=== PATIENT | female | born 1940 | race Caucasian/White ===

== ENCOUNTER 2017-03-03 14:24 | Inpatient (IN) | payer OTHER ==
[~2017-03-03] VITALS: Ht 144.8 cm; Wt 50.3 kg
[2017-03-03] MEDS ORDERED: ALBU2.5V3 NEB (14:48)
[2017-03-03] MEDS ORDERED: AMLO-145 PO (14:48)
[2017-03-03] MEDS ORDERED: ASPI-664 PO (14:49)
[2017-03-03] MEDS ORDERED: SYMB80120 INHALATION (14:49)
[2017-03-03] MEDS ORDERED: MINE3.5O31 BOTH EYES (14:49)
[2017-03-03] MEDS ORDERED: CARV12.598 PO (14:49)
[2017-03-03] MEDS ORDERED: CYCL1DRO BOTH EYES (14:50)
[2017-03-03] MEDS ORDERED: DICY10CA60 PO (14:50)
[2017-03-03] MEDS ORDERED: CLOP75TA27 PO (14:50)
[2017-03-03] MEDS ORDERED: ERGO500037 PO (14:51)
[2017-03-03] MEDS ORDERED: FURO20TA3 PO (14:51)
[2017-03-03] MEDS ORDERED: FLUT9.9S NASAL (14:51)
[2017-03-03] MEDS ORDERED: FER325 PO (14:51)
[2017-03-03] MEDS ORDERED: LANT3I SC (14:52)
[2017-03-03] MEDS ORDERED: GABA100C14 PO (14:52)
[2017-03-03] MEDS ORDERED: ISOS30TA18 PO (14:53)
[2017-03-03] MEDS ORDERED: LISI1TAB8 PO (14:53)
[2017-03-03] MEDS ORDERED: METO25TA7 PO (14:53)
[2017-03-03] MEDS ORDERED: NIFE60TA36 PO (14:54)
[2017-03-03] MEDS ORDERED: NITR0.4T6 SL (14:54)
[2017-03-03] MEDS ORDERED: SIMV20TA PO (14:55)
[2017-03-03] MEDS ORDERED: PANT40TA4 PO (14:55)
[2017-03-03] MEDS ORDERED: SIMV40TA2 PO (14:55)
[2017-03-03 15:27] LABS: ADD SCAN DIFF NO
[2017-03-03 15:30] LABS: BASOPHILS % 0.7 % (0.0-2.0); EOSINOPHILS # 0.2 10^3/ul (0.0-0.5); EOSINOPHILS % 3.4 % (0.0-7.0); HEMOGLOBIN 7.8 g/dl (12.0-16.0); LYMPHOCYTES # 1.2 10^3/ul (0.8-2.9); LYMPHOCYTES % 20.6 % (15.0-51.0); MEAN CORPUSCULAR HEMOGLOBIN 31.7 pg (29.0-33.0); MEAN CORPUSCULAR HGB CONC 32.5 g/dl (32.0-37.0); MEAN CORPUSCULAR VOLUME 97.6 fl (82.0-101.0); MEAN PLATELET VOLUME 10.1 fl (7.4-10.4); MONOCYTE # 0.4 10^3/ul (0.3-0.9); MONOCYTES % 6.3 % (0.0-11.0); NEUTROPHIL # 3.8 10^3/ul (1.6-7.5); NEUTROPHILS % 67.6 % (39.0-77.0); PLATELET COUNT 165 10^3/UL (140-415); RED BLOOD COUNT 2.46 10^6/ul (4.20-5.40); RED CELL DISTRIBUTION WIDTH 15.1 % (11.5-14.5); WHITE BLOOD COUNT 5.6 10^3/ul (4.8-10.8)
[2017-03-03 15:48] LABS: INR 1.08; PT RATIO 1.1
[2017-03-03 15:49] LABS: PARTIAL THROMBOPLASTIN TIME 32.4 Sec (25.0-35.0)
[2017-03-03 15:54] LABS: ALBUMIN 3.1 g/dl (3.3-4.9)
[2017-03-03 15:55] LABS: POTASSIUM 4.2 mmol/L (3.5-5.1)
[2017-03-03 15:57] LABS: ALBUMIN/GLOBULIN RATIO 0.75; BILIRUBIN,INDIRECT 0.3 mg/dl (0-1.1); BILIRUBIN,TOTAL 0.3 mg/dl (0.2-1.3); CREATININE 0.95 mg/dl (0.44-1.00); TOTAL PROTEIN 7.2 g/dl (6.1-8.1)
[2017-03-03 15:58] LABS: CALCIUM 9.3 mg/dl (8.4-10.2)
[2017-03-03 18:22] VITALS: TEMP 98.6
--- NOTE | 2017-03-03 20:46 | ERA ---
ER Documentation Chief Complaint Date/Time DATE: 03/03/17 TIME: 20:42 Chief Complaint BIBA FOR LOW H&H FROM SNF HPI This is a 76-year-old female who is sent for blood transfusion. Patient is at a longterm and was walking with a walker she says she felt very weak in her legs while working well for her so they put her in bed and was sent over for a hemoglobin of 6.8. The patient states she was at an outside hospital 2 weeks ago and received 1 unit of blood for anemia. The patient states that she does not know why she has anemia. She denies any headache chest pain shortness of breath abdominal pain fever or melena. Currently she says she feels back to normal ROS All systems reviewed and are negative except as per history of present illness. Medications Home Meds Reported Medications Simvastatin* (Zocor*) 20 Mg Tablet, 20 MG PO QHS, #30 TAB 03/03/17 Pantoprazole* (Pantoprazole*) 40 Mg Tablet.dr, 40 MG PO BID, TAB 03/03/17 Nitroglycerin* (Nitroglycerin* SL) 0.4 Mg Tab.subl, 0.4 MG SL Q5MIN Y for CHEST PAIN, BOTTLE 03/03/17 Nifedipine* (Adalat CC*) 60 Mg Tablet.sa, 60 MG PO QPM, #30 TAB.SA 03/03/17 Metoprolol Succinate* (Toprol XL*) 25 Mg Tab.sr.24h, 25 MG PO DAILY, #30 TAB 03/03/17 Lisinopril/Hydrochlorothiazide (Lisinopril-Hctz 20-25 mg Tab) 1 Each Tablet, 1 EACH PO DAILY, TAB 03/03/17 Isosorbide Dinitrate* (Isosorbide Dinitrate*) 30 Mg Tablet, 30 MG PO DAILY, TAB 03/03/17 Insulin Glargine* (Lantus*) 100 Unit/Ml Soln, 15 UNIT SC QHS, #1 VIAL 03/03/17 Gabapentin* (Gabapentin*) 100 Mg Capsule, 100 MG PO QPM, #90 CAP 03/03/17 Furosemide* (Furosemide*) 20 Mg Tablet, 20 MG PO BID, #30 TAB 03/03/17 Fluticasone Propionate (Flonase Allergy Relief) 9.9 Ml [place].susp, 1 SPRAY NASAL DAILY, #1 BOTTLE TO EACH NOSTRIL 5/3/17 Ferrous Sulfate* (Ferrous Sulfate*) 325 Mg Tabec, 325 MG PO BID, TAB 03/03/17 Ergocalciferol (Vitamin D2) (VITAMIN D2) 50,000 Unit Capsule, 70177 UNIT PO WEEKLY, CAP 03/03/17 Dicyclomine Hcl* (Bentyl*) 10 Mg Capsule, 10 MG PO QID, CAP 03/03/17 Cyclosporine (RESTASIS) 1 Each [place], 1 DROP BOTH EYES Q12, #1 BOX 03/03/17 Clopidogrel Bisulfate (Clopidogrel) 75 Mg Tablet, 75 MG PO DAILY, #30 TAB 03/03/17 Carvedilol* (Coreg*) 12.5 Mg Tablet, 12.5 MG PO BID, #60 TAB 03/03/17 Budesonide-Formoterol Fumarate* (Symbicort*) 80-4.5 Inha, 1 PUFFS INHALATION BID , #1 EACH 03/03/17 Aspirin* (Aspirin* EC) 81 Mg Tablet.dr, 81 MG PO DAILY, TAB 03/03/17 Artificial Tears* (Akwa Oint*) 3.5 Gm Oint, 1 APPLIC BOTH EYES BID, #1 TUB 03/03/17 Amlodipine Besylate* (Amlodipine Besylate*) 5 Mg Tablet, 5 MG PO DAILY, #30 TAB 03/03/17 Albuterol Sulfate* (Albuterol Sulfate* Neb) 0.083%-3 Ml Neb, 2.5 MG NEB Q6 Y for WHEEZING AND SOB, #30 VIAL 03/03/17 Discontinued Reported Medications Simvastatin* (Zocor*) 40 Mg Tablet, 40 MG PO QHS, #30 TAB 03/03/17 Allergies Allergies: Coded Allergies: Penicillins (Verified Allergy, Severe, 03/03/17) Sulfa (Sulfonamide Antibiotics) (Verified Allergy, Severe, 03/03/17) codeine (Verified Allergy, Severe, 03/03/17) diphenhydramine (Verified Allergy, Severe, 03/03/17) hydromorphone (Verified Allergy, Severe, 03/03/17) ibuprofen (Verified Allergy, Severe, 03/03/17) iodine (Verified Allergy, Severe, 03/03/17) ketorolac (Verified Allergy, Severe, 03/03/17) quinine (Verified Allergy, Severe, 03/03/17) PMhx/Soc History of Surgery: Yes (CHOLECYSTECTOMY,OPEN HEART SX 1999) Anesthesia Reaction: No Hx Neurological Disorder: No Hx Respiratory Disorders: No Hx Cardiac Disorders: Yes (HTN,HEART ATTACK,CAD) Hx Psychiatric Problems: No Hx Miscellaneous Medical Probl: Yes (DM) Hx Alcohol Use: No Hx Substance Use: No Hx Tobacco Use: No Smoking Status: Never smoker FmHx Family History: No coronary disease Physical Exam Vitals Vital Signs Date Time Temp Pulse Resp B/P Pulse Ox O2 Delivery O2 Flow Rate FiO2 03/03/17 20:32 74 17 162/66 100 Nasal Cannula 2.0 03/03/17 18:22 98.6 78 15 169/74 100 Nasal Cannula 2.0 03/03/17 17:32 98.2 75 151/67 98 03/03/17 15:21 Nasal Cannula 2 03/03/17 14:38 98.0 75 18 132/56 98 Physical Exam Const: Well-developed, well-nourished Head: Atraumatic, normocephalic Eyes: Normal Conjunctiva, PERRLA, EOMI, normal sclera, no nystagmus ENT: Normal External Ears, Nose and Mouth, moist mucus membranes. Neck: Full range of motion. No meningismus, no lymphadenopathy. Resp: Clear to auscultation bilaterally, no wheezing, rhonchi, rales Cardio: Regular rate and rhythm, no murmurs, S1 S2 present Abd: Soft, non tender x 4, non distended. Normal bowel sounds, no guarding or rebound, no pulsitile abdominal masses or bruits Skin: No petechiae or rashes, no ecchymosis , no maculopapular rash Back: No midline or flank tenderness Ext: No cyanosis, or edema, FROM x 4, normal inspection, neurovascularly intact x 4 Neur: Awake and alert, STR 5/5 x 4, sensation intact x 4, no focal findings, cerebellum intact Psych: Normal Mood and Affect Result Diagram: 03/03/17 1520 03/03/17 1520 Results 24 hrs Laboratory Tests Test 03/03/17 15:20 White Blood Count 5.610^3/ul Red Blood Count 2.4610^6/ul Hemoglobin 7.8g/dl Hematocrit 24.0% Mean Corpuscular Volume 97.6fl Mean Corpuscular Hemoglobin 31.7pg Mean Corpuscular Hemoglobin Concent 32.5g/dl Red Cell Distribution Width 15.1% Platelet Count 24613^3/UL Mean Platelet Volume 10.1fl Neutrophils % 67.6% Lymphocytes % 20.6% Monocytes % 6.3% Eosinophils % 3.4% Basophils % 0.7% Nucleated Red Blood Cells % 0.0/100WBC Neutrophils # 3.810^3/ul Lymphocytes # 1.210^3/ul Monocytes # 0.410^3/ul Eosinophils # 0.210^3/ul Basophils # 0.010^3/ul Nucleated Red Blood Cells # 0.010^3/ul Prothrombin Time 14.0Sec Prothrombin Time Ratio 1.1 INR International Normalized Ratio 1.08 Activated Partial Thromboplast Time 32.4Sec Sodium Level 143mmol/L Potassium Level 4.2mmol/L Chloride Level 109mmol/L Carbon Dioxide Level 24mmol/L Anion Gap 14 Blood Urea Nitrogen 22mg/dl Creatinine 0.95mg/dl Glucose Level 211mg/dl Calcium Level 9.3mg/dl Total Bilirubin 0.3mg/dl Direct Bilirubin 0.00mg/dl Indirect Bilirubin 0.3mg/dl Aspartate Amino Transf (AST/SGOT) 22IU/L Alanine Aminotransferase (ALT/SGPT) 23IU/L Alkaline Phosphatase 212IU/L Total Protein 7.2g/dl Albumin 3.1g/dl Globulin 4.10g/dl Albumin/Globulin Ratio 0.75 Procedures/MDM Patient had a type and cross of 2 units of packed red blood cells, however, she has very specific antibodies. The patient has been here for 6 hours and no blood is ready and apparently they had to redraw the blood is seen to to [facility] again for type and crossmatch. Blood bank states that they are not sure how long this will take to get the results back and get her blood seen over. He said it could be quite a while Patient is anemic with a hemoglobin of 7.8 which is not critical but she could benefit from some blood. Attempted to try to send the patient out and have her return tomorrow for the blood transfusion, however, the patient will have to reregister and the process will start all over again because she will have a new medical record number, therefore they will not hold her blood here until tomorrow I will have to admit the patient Patient states that a longterm the cannot administer blood products I paged Dr. Bard mejía Laboratory values relatively unremarkable and she feels fine. Feels she just needs some blood and can be discharged home Departure Diagnosis: Primary Impression: Anemia Qualified Code: D64.9 - Anemia, unspecified type Condition: Stable GLADYS SANDOVAL DO March 03, 2017 20:46
[2017-03-03] MEDS ORDERED: ONDANSETRON 4 MG INJ IV PRN ×2 (21:00)
[2017-03-03] MEDS ORDERED: ACETAMINOPHEN 325 MG TAB PO PRN ×2 (21:00)
[2017-03-03 22:00] VITALS: Ht 144.8 cm; Wt 50.3 kg
[2017-03-03] MEDS ORDERED: ALBUTEROL 0.083% (NEB) 2.5 MG/3 ML AMP NEB PRN (23:30)
[2017-03-03] MEDS ORDERED: NITROGLYCERIN (SL) 0.4 MG TAB SL PRN (23:30)
[2017-03-03 23:48] VITALS: BP 82/76; PULSE 78; RESP 18
[2017-03-04] VITALS (11 sets, daily range): BP systolic 111–172; BP diastolic 56–77; PULSE 68–73; RESP 16–19
[2017-03-04] MEDS ORDERED: GLUCOSE GEL 15 GRAM TUBE PO PRN ×2 (00:10)
[2017-03-04] MEDS ORDERED: GLUCAGON 1 MG INJ IM PRN (00:10)
[2017-03-04] MEDS ORDERED: GLUCOSE GEL 15 GRAM TUBE BUCCAL PRN (00:10)
[2017-03-04] MEDS ORDERED: DEXTROSE 50% 50 ML SYRINGE IV PRN ×2 (00:10)
[2017-03-04] MEDS: ACCU-CHEK XX SCH (00:13)
[2017-03-04 04:53] LABS: ADD SCAN DIFF NO
[2017-03-04 05:00] LABS: ABNORMAL IP MESSAGE 1; HEMATOCRIT 22.1 % (37.0-47.0); MEAN CORPUSCULAR HEMOGLOBIN 30.4 pg (29.0-33.0); MEAN CORPUSCULAR HGB CONC 31.2 g/dl (32.0-37.0); MEAN CORPUSCULAR VOLUME 97.4 fl (82.0-101.0); PLATELET COUNT 127 10^3/UL (140-415); RED BLOOD COUNT 2.27 10^6/ul (4.20-5.40); RED CELL DISTRIBUTION WIDTH 15.3 % (11.5-14.5); WHITE BLOOD COUNT 5.3 10^3/ul (4.8-10.8)
[2017-03-04 05:33] LABS: POTASSIUM 3.7 mmol/L (3.5-5.1)
[2017-03-04 05:36] LABS: CREATININE 0.88 mg/dl (0.44-1.00)
[2017-03-04] MEDS: PANTOPRAZOLE (EC) 40 MG TAB PO SCH ×2 (05:49→17:55)
[2017-03-04] MEDS: FUROSEMIDE 20 MG TAB PO SCH ×2 (05:50→17:55)
[2017-03-04] MEDS ORDERED: [UNRECOGNIZED DRUG - OTHER] XX SCH (07:30)
[2017-03-04] MEDS ORDERED: ERGOCALCIFEROL 50000 UNIT XX SCH (07:30)
[2017-03-04] MEDS: CLOPIDOGREL 75 MG TAB PO SCH (09:00)
[2017-03-04] MEDS ORDERED: DICYCLOMINE 10 MG CAP PO SCH (09:00)
[2017-03-04] MEDS ORDERED: METOPROLOL (XL) 25 MG TAB PO SCH (09:00)
[2017-03-04] MEDS ORDERED: AMLODIPINE 5 MG TAB PO SCH (09:00)
[2017-03-04] MEDS ORDERED: ISOSORBIDE DINITRATE 10 MG TAB PO SCH (09:00)
[2017-03-04] MEDS: LISINOPRIL 20 MG TAB PO SCH (09:08)
[2017-03-04] MEDS: HYDROCHLOROTHIAZIDE 25 MG TAB PO SCH (09:08)
[2017-03-04] MEDS: FLUTICASONE 0.05% 16 GM NAS SPRAY NASAL SCH (09:09)
[2017-03-04] MEDS: ASPIRIN (EC) 81 MG TAB PO SCH (09:09)
[2017-03-04] MEDS: FERROUS SULFATE (EC) 325 MG TAB PO SCH ×2 (09:09→21:21)
[2017-03-04] MEDS: SALMETEROL/FLUTICASONE 100/50 INHA INH SCH ×2 (09:09→21:20)
[2017-03-04] MEDS: OCULAR LUBRICANT 3.5 GM OPH OINT BOTH EYES SCH ×2 (09:10→21:19)
[2017-03-04] MEDS: CYCLOSPORINE 0.05% OPH DROPERETTE BOTH EYES SCH ×2 (09:10→21:20)
[2017-03-04] MEDS: INSULIN ASPART [NOVOLOG] 3 ML PEN SC SCH ×5 (09:16→21:00)
[2017-03-04 10:18] LABS: EOSINOPHILS # 0.1 10^3/ul (0.0-0.5); LYMPHOCYTES # 1.1 10^3/ul (0.8-2.9); MONOCYTE # 0.1 10^3/ul (0.3-0.9)
[2017-03-04] MEDS ORDERED: SOD CHLORIDE 0.9% 250 ML IV* ONE (12:08)
--- NOTE | 2017-03-04 12:40 | HP ---
DATE OF ADMISSION: 03/03/2017 HISTORY OF PRESENT ILLNESS: The patient is a 76-year-old female well known to me from recent admiss ion at the [facility] facility. The patient had history of coronary artery disease status post CABG, hypertension, diabetes, dyslipidemia, who was recently admitted at [facility] for generalized weakness and was noted to have acute kidney injury. Patient's BUN was 129, creatini ne was 2.5. The patient also was noted to have a hemoglobin of 7.9. The patient did receive blood transfusion; however, I am not sure whether she has had any further workup done. The patient did doty ve a UTI during that admission also. The patient was subsequently referred to [facility]. The patient had a CBC done yesterday which revealed hemoglobin 6.8. The patie nt also was feeling generalized weakness and slightly dizzy. The patient was sent to [facility] for further evaluation and management due to symptomatic anemia. The patient denied any he matemesis or melena. No history of abdominal pain. No history of anginal chest pain. No history o f melenic stool. Patient's BUN in fact was only 22; however, repeat hemoglobin was 7.8. Hemoglobin was repeated again today, this morning it came back as 6.9. The patient also had a mild thrombocyt openia with platelet count of 127. The patient denied any previous history of any blood dyscrasias. No reported syncope, no reported orthopnea. The patient does not have any leg edema. No reported resting leg pain, no reported numbness, tingling in any extremity. The rest of the systems are unr emarkable. PAST SURGICAL HISTORY: Patient is status post bilateral cataract repair, cholecystectomy, right kate ast lumpectomy for breast cancer, surgical procedures for vaginal cancer, details not available. SOCIAL HISTORY: The patient used to smoke. The patient quit smoking in 1999. No history of alcoho l abuse. FAMILY HISTORY: Noncontributory. ALLERGIES: The patient is allergic to: 1. PENICILLIN. 2. SULFA. 3. CODEINE. 4. DIPHENHYDRAMINE. 5. HYDROMORPHONE. 6. 7. 8. KETOROLAC. 9. QUININE. PHYSICAL EXAMINATION: GENERAL: The patient is conscious, awake, alert, fairly oriented. VITAL SIGNS: Temperature 98, pulse 71, respirations 19, blood pressure 160/70, O2 saturation 97% on 2 liters cannula. HEENT: Atraumatic, normocephalic. Conjunctivae are pale. Lids are normal. Oropharynx revealed pa le mucosa. NECK: Supple. No mass, no thyromegaly, no mass. CHEST: Fairly clear. No use of accessory muscles. CARDIOVASCULAR: S1, S2 normal. Questionable ejection systolic murmur heard in aortic area with que stionable radiation to the right carotid. ABDOMEN: Soft, nondistended, nontender. No palpable mass. EXTREMITIES: No leg edema. Pedal pulses could not be felt. SKIN: Without acute rash. NEUROLOGIC: The patient is awake, alert, fairly oriented with no gross focal deficit. IMPRESSION: 1. Symptomatic anemia with mild thrombocytopenia, etiology unknown. Will obtain hem/onc consult fr om Dr. Curtis and GI consult from Dr. Simon. Will obtain stool for C. diff. 2. Coronary artery disease, status post coronary artery bypass graft. Continue aspirin and Plavix. 3. Hypertension. Continue Norvasc. 4. Hypertension. The patient's blood pressure is uncontrolled. We will increase Norvasc to 10 mg a day. Continue Coreg. 5. Dyslipidemia. Continue statin. 6. Diabetes. Continue Lantus and I will also add premeal insulin in addition to sliding scale. 7. We will also obtain echocardiogram, carotid Doppler and arterial Doppler of lower extremities. 8. Further recommendations will depend upon patient's hospital course. Dictated By: ANUSHA MIRELES/DO Conf#: [id number] DID#: [id number]
--- NOTE | 2017-03-04 14:21 | CONS ---
DATE OF ADMISSION: 03/04/2017 DATE OF CONSULTATION: 03/04/2017 TYPE OF CONSULTATION: Cardiology REASON FOR CONSULTATION: Hypertension, uncontrolled as well as systolic murmur and history of coron karrie artery bypass graft, assess for acute coronary syndrome. REQUESTING PHYSICIAN: González Claros MD HISTORY OF PRESENT ILLNESS: Ms. Avilez is a very pleasant 76-year-old female with a history of coron akrrie artery disease, status post coronary bypass graft surgery in 1999, hypertension, diabetes mellit us, dyslipidemia, renal failure and a recent admission at [facility] where she was ad mitted for generalized weakness, recent UTI, who presented with anemia from her chronic care facilit y with a hemoglobin of 6.8. Upon arrival, temperature was 98, blood pressure 132/56, pulse 75, resp iratory rate 18, saturating 98%. The patient's labs revealed a white count of 5.6, hemoglobin 7.8, platelet count 165, sodium 143, potassium 4.2, creatinine 0.95, BUN 22, AST 22, ALT 23, INR of 1.0. The patient does not have any imaging studies or EKGs for my review at this time. The patient tavares es current chest pain, states she has had some chest pain episodes. PAST MEDICAL HISTORY: As above in HPI. MEDICATIONS CURRENTLY IN HOSPITAL: 1. Norvasc 10 mg daily. 2. Gabapentin 100 mg daily. 3. Lantus 15 mg at bedtime. 4. Procardia-XL 60 mg daily. 5. Lipitor 20 mg at bedtime. 6. Insulin sliding scale. 7. Aspirin 81 mg daily. 8. Carvedilol 12.5 mg p.o. b.i.d. 9. Plavix 75 mg daily. 10. Cyclosporine eyedrops. 11. Ferrous sulfate 350 mg b.i.d. 12. Isordil 30 mg daily. 13. Zestril 20 mg daily. 14. Hydrochlorothiazide 25 mg daily. 15. Insulin sliding scale. 16. Lasix 20 mg p.o. b.i.d. 17. Protonix 40 mg p.o. b.i.d. 18. Albuterol p.r.n. 19. Nitroglycerin. 20. Zofran p.r.n. 21. Tylenol. ALLERGIES: 1. PENICILLIN. 2. SULFA. 3. CODEINE. 4. DIPHENHYDRAMINE. 5. DILAUDID. 6. IBUPROFEN. 7. IODINE. 8. TORADOL. SOCIAL HISTORY: Remote tobacco, quit times greater than 10 to 15 years. No ETOH or illicit drug us e. FAMILY HISTORY: No history of sudden cardiac or early CAD. REVIEW OF SYSTEMS: As above in HPI. CONSTITUTIONAL: No fevers, chills. PULMONARY: Shortness of breath. CARDIOVASCULAR: No current chest pain. History of coronary artery bypass graft. GASTROINTESTINAL: No vomiting. GENITOURINARY: No hematuria. MUSCULOSKELETAL: Degenerative joint disease. PSYCHIATRIC: The patient denies depression. NEUROLOGIC: No documented history of CVA. PHYSICAL EXAMINATION VITAL SIGNS: Temperature 98.6, blood pressure 160/70, pulse 71, respiratory rate 19, saturating 97% . GENERAL: The patient is alert, awake, in no acute distress. NECK: JVP approximately 8 cm water. CHEST: Fair. HEART: Regular rate and rhythm. Normal S1, S2, I/ systolic murmur, nondisplaced PMI. ABDOMEN: Positive bowel sounds, soft. EXTREMITIES: Trace edema at the ankle. Difficult to palpate distal pulses bilateral posterior tib ial. LABORATORY DATA: As above in HPI with most recently from today, white count 5.3, hemoglobin now víctor n to 6.9 with MCV of 97, platelet count of 127. Sodium 142, potassium 3.7, creatinine 0.8, BUN 19, INR of 1.0. IMAGING STUDIES: No imaging studies for my review at this time. ECG: No electrocardiograms for my review at this time. IMPRESSION: 1. Hypertension, uncontrolled. 2. Systolic murmur, assess etiology. 3. Coronary artery disease, status post coronary artery bypass graft surgery, assess for acute sharad nary syndrome. 4. Dyslipidemia. 5. Diabetes mellitus. 6. Possible congestive heart failure by medications. 7. Anemia, severe. RECOMMENDATIONS: 1. At this time, would check serial EKGs to assess for any significant abnormalities. 2. EKG now as baseline, EKG in the morning, EKG for any complaints of chest pain. 3. Would check troponins q.6h x2 to assure the patient's intermittent episodes of chest pain is no t indicative of any acute coronary syndromes, given history of coronary artery disease, status post coronary artery bypass graft surgery, multiple years prior. 4. Continue the patient's current Procardia, Carvedilol, hydrochlorothiazide and lisinopril with up titration as necessary to improve overall systolic blood pressure control. 5. Will change the patient's Isordil to Imdur and continue daily dosing. 6. Will discontinue the patient's second calcium channel timur, Norvasc, in favor continuing Proc ardia with further up titration as necessary. 7. Check a 2D echocardiogram to further assess patient's ejection fraction, wall motion and any kaley or valve abnormalities. 8. Would transfuse the patient packed RBCs and evaluate etiology 9. Continue the patient's aspirin and Plavix for now, but may have to be held in the setting of wor sening anemia. 10. Check a fasting lipid panel and adjust the patient's statin therapy as necessary. Thank you for allowing me to take part in the care of this patient. I will continue to follow very closely with you. Further recommendations to be made as the patient progresses through her [facility] clinical course. Dictated By: ELEN GREENE/DO Conf#: [id number] DID#: [id number] CC: GONZÁLEZ CLAROS MD;*EndCC*
--- NOTE | 2017-03-04 16:46 | CONS ---
Date/Time of Note Date/Time of Note DATE: 03/04/17 TIME: 16:38 Assessment/Plan Assessment/Plan Chief Complaint/Hosp Course The patient is a 76-year-old female with severe normocytic anemia with Hgb 6.9 and slightly elevated RDW 15.3, and mild thrombocytopenia without evidence of acute bleed - patient already receiving transfusion of 2 units pRBCs - Will request peripheral smear with path review, particularly given notation of nucleated RBC and history of breast cancer and vaginal cancer albeit remote - Will obtain iron panel, ferritin, LDH, retic, haptoglobin, B12/folate, methylmalonic acid and homocysteine - Pending GI evaluation - Will also send DIC panel, HIV, hep panel for mild thrombocytopenia Problems: Consultation Date/Type/Reason Admit Date/Time March 04, 2017 at 13:55 Date of Consultation: March 04, 2017 Type of Consultation: Hematology Hx of Present Illness The patient is a 76-year-old female well known to Dr. Basurto from recent admission at the [facility]. The patient had history of coronary artery disease status post CABG, hypertension, diabetes, dyslipidemia, who was recently admitted at [facility] for generalized weakness and was noted to have acute kidney injury. Patient's BUN was 129, creatinine was 2.5. The patient also was noted to have a hemoglobin of 7.9. The patient did receive blood transfusion; however, I am not sure whether she has had any further workup done. The patient did have a UTI during that admission also. The patient was subsequently referred to [facility]. The patient had a CBC done yesterday which revealed hemoglobin 6.8. The patient also was feeling generalized weakness and slightly dizzy. The patient was sent to [facility] ER for further evaluation and management due to symptomatic anemia. The patient denied any hematemesis or melena. No history of abdominal pain. No history of anginal chest pain. No history of melenic stool or BRBPR, no other source of bleeding. Patient's BUN in fact was only 22; however, repeat hemoglobin was 7.8. Hemoglobin was repeated again today, this morning it came back as 6.9. The patient also had a mild thrombocytopenia with platelet count of 127. The patient denied any previous history of any blood dyscrasias. She does have a remote history of breast cancer in the 1970s on the right status post mastectomy without need for chemo or radiation or hormone therapy per patient. She also had a history of vaginal cancer 20-30 years ago s/p surgery alone, EDUARDO since that time per patient. Past Medical History Per HPI. She does have a remote history of breast cancer in the 1970s on the right status post mastectomy without need for chemo or radiation or hormone therapy per patient. She also had a history of vaginal cancer 20-30 years ago s /p surgery alone, EDUARDO since that time per patient. Past Surgical History Patient is status post bilateral cataract repair, cholecystectomy, right breast lumpectomy for breast cancer, surgical procedures for vaginal cancer, details not available. Family History Significant Family History: no pertinent family hx Social History The patient used to smoke 1/2 ppd from age 16. The patient quit smoking in 1999. No history of alcohol abuse. 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 Results Result Diagram: 03/04/17 0420 03/04/17 0432 Results 24 hrs Laboratory Tests Test 03/03/17 22:50 03/04/17 04:20 03/04/17 04:32 03/04/17 09:01 Bedside Glucose 160 159 White Blood Count 5.3 Red Blood Count 2.27 L Hemoglobin 6.9 *L Hematocrit 22.1 L Mean Corpuscular Volume 97.4 Mean Corpuscular Hemoglobin 30.4 Mean Corpuscular Hemoglobin Concent 31.2 L Red Cell Distribution Width 15.3 H Platelet Count 127 #L Mean Platelet Volume 10.0 Neutrophils % 75.0 Band Neutrophils % 3.0 Lymphocytes % 20.0 Monocytes % 1.0 Eosinophils % 1.0 Nucleated Red Blood Cells % 3.0 H Neutrophils # 4.0 Lymphocytes # 1.1 Monocytes # 0.1 L Eosinophils # 0.1 Sodium Level 143 Potassium Level 3.7 Chloride Level 110 Carbon Dioxide Level 26 Anion Gap 11 Blood Urea Nitrogen 18 Creatinine 0.88 Glucose Level 175 Calcium Level 9.0 Test 03/04/17 12:10 Bedside Glucose 227 H Medications Medications Current Medications Eye Lubricant (Akwa Oint) 1 applic BID BOTH EYES Last administered on 03/04/17 09:10; Admin Dose 1 APPLIC; Start 03/04/17 at 09:00 Aspirin (Halfprin) 81 mg DAILY PO Last administered on 03/04/17 09:09; Admin Dose 81 MG; Start 03/04/17 at 09:00 Carvedilol (Coreg) 12.5 mg BID PO Last administered on 03/04/17 09:09; Admin Dose 12.5 MG; Start 03/04/17 at 09:00 Clopidogrel Bisulfate (plaVIX) 75 mg DAILY PO ; Start 03/04/17 at 09:00 Cyclosporine (Restasis) 1 drop Q12 BOTH EYES Last administered on 03/04/17 09: 10; Admin Dose 1 DROP; Start 03/04/17 at 09:00 Ergocalciferol (Drisdol) 50,000 unit Q7D PO ; Start 03/10/17 at 09:00 Ferrous Sulfate (Ferrous Sulfate (Ec)) 325 mg BID PO Last administered on 09:09; Admin Dose 325 MG; Start 03/04/17 at 09:00 Fluticasone Propionate (Flonase 0.05% Nasal) 1 spray DAILY NASAL Last administered on 03/04/17 09:09; Admin Dose 1 SPRAY; Start 03/04/17 at 09:00 Gabapentin (Neurontin) 100 mg QPM PO ; Start 03/04/17 at 21:00 Insulin Glargine (Lantus) 15 unit QHS SC ; Start 03/04/17 at 21:00 Nifedipine (Procardia Xl) 60 mg QPM PO ; Start 03/04/17 at 21:00 Nitroglycerin (Nitroglycerin (Sl Tab) 0.4 Mg) 1 tab Q5M PRN SL CHEST PAIN; Start 03/03/17 at 23:30 Pantoprazole (Protonix Tab) 40 mg BID@06,18 PO Last administered on 03/04/17 05 :49; Admin Dose 40 MG; Start 03/04/17 at 06:00 Salmeterol Xinafoate/ Fluticasone (Advair 100/50 Diskus) 1 inh BID INH Last administered on 03/04/17 09:09; Admin Dose 1 INH; Start 03/04/17 at 09:00 Lisinopril (Zestril) 20 mg DAILY PO Last administered on 03/04/17 09:08; Admin Dose 20 MG; Start 03/04/17 at 09:00 Atorvastatin Calcium (Lipitor) 10 mg DAILY@21 PO ; Start 03/04/17 at 21:00 Diagnostic Test (Pha) (Accu-Chek) 1 ea 02 XX ; Start 03/04/17 at 02:00 Miscellaneous Information 1 ea NOTE XX ; Start 03/04/17 at 00:10 Glucose (Glutose) 15 gm Q15M PRN PO DECREASED GLUCOSE; Start 03/04/17 at 00:10 Glucose (Glutose) 22.5 gm Q15M PRN PO DECREASED GLUCOSE; Start 03/04/17 at 00:10 Dextrose (D50w Syringe) 25 ml Q15M PRN IV DECREASED GLUCOSE; Start 03/04/17 at 00:10 Dextrose (D50w Syringe) 50 ml Q15M PRN IV DECREASED GLUCOSE; Start 03/04/17 at 00:10 Glucagon (Glucagen) 1 mg Q15M PRN IM DECREASED GLUCOSE; Start 03/04/17 at 00:10 Glucose (Glutose) 15 gm Q15M PRN BUCCAL DECREASED GLUCOSE; Start 03/04/17 at 00: 10 Hydrochlorothiazide (Hydrochlorothiazide) 25 mg DAILY PO Last administered on 09:08; Admin Dose 25 MG; Start 03/04/17 at 09:00 Isosorbide Mononitrate (Imdur) 30 mg DAILY PO ; Start 03/05/17 at 09:00 Nifedipine (Procardia Xl) 30 mg AM PO ; Start 03/05/17 at 09:00 MIKE SEGURA MD March 04, 2017 16:46
--- NOTE | 2017-03-04 17:01 | RADRPT ---
PROCEDURE: US Carotids. CLINICAL INDICATION: bruit , bruit on right side TECHNIQUE: Multiple sonographic of the carotid bifurcation region and vertebral arteries were obta ined utilizing farr scale, duplex and color-flow imaging. The images were reviewed on a PACS worksta tion. COMPARISON: No prior studies are available for comparison. FINDINGS: Evaluation of the right carotid bifurcation region reveals mild calcific atherosclerotic disease. . Evaluation of the left carotid bifurcation region reveals mild to moderate calcific atherosclerotic disease. There is a 59% stenosis in the left carotid bulb. There is antegrade flow within the vertebral arteries bilaterally. RIGHT CAROTID MEASUREMENTS: Common Carotid Vkoesj71.5 (cm/sec) Internal Carotid Artery - xbgcedae927.1 (cm/sec) Internal Carotid Artery - wuo870.9 (cm/sec) Internal Carotid Artery - tootcb714.4 (cm/sec) Internal Carotid/Common Carotid2.16 LEFT CAROTID MEASUREMENTS: Common Carotid Gybjaf53.0 (cm/sec) Internal Carotid Artery - hkyadelu297.4 (cm/sec) Internal Carotid Artery - oet131.2 (cm/sec) Internal Carotid Artery - bonbuk485.3 (cm/sec) Internal Carotid/Common Carotid1.97 RPTAT: AA IMPRESSION: Increased internal carotid to common carotid ratio bilaterally, suspicious for bilateral 50-69% sten osis. Further evaluation with a CT angiogram is recommended. Validated velocity measurements with angiographic measurements, velocity criteria are extrapolated f rom diameter data as defined by the Society of Radiologists in Ultrasound Consensus Conference Radio logy 2003; 229;340-346. This study does indirectly reference the measurement of the distal ICA diam eter as the denominator for stenosis measurement. Normal antegrade flow in the vertebral arteries bilaterally. .Joo Can MD, MD Date Time Electronically viewed and signed by .Joo Can MD, MD on 03/04/2017 17:01 .S/
--- NOTE | 2017-03-04 18:40 | RADRPT ---
Echocardiogram Report Patient Name: EPIFANIO RESTREPO Gender: Female Date: 1940 Study Date: 04-Mar-2017 [employer] Instructor: KIARA Location: [id number] Ref. Physician: ANUSHA TATUM Quality: Adequate Procedures: Transthoracic echocardiogram with complete 2D, M-Mode, and doppler examination. Indications: Coronary Artery Disease. 2D/M Mode Doppler Measurement Value Normal Ranges Measurement Value Normal Ranges LVIDd 2D 3.9 3.5 - 5.6 cm AV Peak Az 1.2 m/sec LVIDs 2D 3.0 2.1 - 4.1 cm AV Peak PG 5.4 mmHg LVPWd 2D 0.9 0.6 - 1.1 cm LVOT Peak Az 0.9 m/sec IVSd 2D 0.9 0.6 - 1.1 cm LVOT Peak PG 3.5 mmHg AoR Diam 2D 2.5 2.0 - 3.7 cm MV E Peak Az 1.2 m/sec EDV 2D 64.3 cm3 MV A Peak Az 1.2 m/sec ESV 2D 25.9 cm3 MV E/A 1.0 LA Dimen 2D 3.3 2.3 - 4.0 cm MV Decel Time 326 msec MV Decel Alger 4 MV E/A 1.0 TR Peak Az 2.2 m/sec TR Peak PG 19.8 mmHg RVSP 22.0 mmHg Findings Left Ventricle: Normal left ventricular cavity size. Normal left ventricular wall thickness. Left ventricular wall thickness upper limits of normal. Ejection fraction is visually estimated at 5560 %. Tissue Doppler/Mitral Doppler indices are consistent with impaired relaxation (Stage I diastolic dysfunction). Right Ventricle: Normal right ventricular size. Normal right ventricular systolic function. Left Atrium: The left atrium is normal in size. Right Atrium: The right atrium is normal in size. Mitral Valve: Mitral valve leaflets appear mildly thickened. Mild mitral annular calcification. Mild mitral valve regurgitation. Aortic Valve: Normal appearance of the aortic valve. No significant aortic stenosis or insufficiency. Tricuspid Valve: Normal appearance of the tricuspid valve. Estimated peak PA systolic pressure 22 mmHg. There is trace tricuspid regurgitation. Pulmonic Valve: Normal pulmonic valve appearance. Pericardium: Normal pericardium with no significant pericardial effusion. Aorta: Normal aortic root. IVC: Normal size and normal respiratory collapse consistent with normal right atrial pressure. Conclusions 1.Normal left ventricular cavity size. Normal left ventricular wall thickness. Left ventricular wall thickness upper limits of normal. Ejection fraction is visually estimated at 55-60 %. Tissue Doppler/Mitral Doppler indices are consistent with impaired relaxation (Stage I diastolic dysfunction). 2.Mitral valve leaflets appear mildly thickened. Mild mitral annular calcification. Mild mitral valve regurgitation. 3.Normal appearance of the tricuspid valve. Estimated peak PA systolic pressure 22 mmHg. There is trace tricuspid regurgitation. Electronically Signed By: Flavio Buckner 04-Mar-2017 18:40:01 -0700 Patient Name: EPIFANIO RESTREPO Study Date: 04-Mar-2017 [id number]
[2017-03-04] MEDS ORDERED: PEG/ELECTROLYTES 4L BTL PO ONE (20:00)
[2017-03-04] MEDS: INSULIN GLARGINE [LANtus] 3 ML PEN SC SCH ×2 (21:00→22:03)
[2017-03-04] MEDS: LACTULOSE 30ML CUP PO SCH ×3 (21:20→23:47)
[2017-03-04] MEDS: GABAPENTIN 100 MG CAP PO SCH (21:21)
[2017-03-04] MEDS: NIFEdipine (XL) 60 MG TAB PO SCH (21:21)
[2017-03-04] MEDS: ATORVASTATIN 10 MG TAB PO SCH (21:22)
--- NOTE | 2017-03-04 21:35 | CONS ---
DATE OF ADMISSION: 03/04/2017 DATE OF CONSULTATION: Dear Dr. Claros: Thank you for asking me to see Mrs. Avilez in GI consultation. HISTORY OF PRESENT ILLNESS: The patient, as you know, is a 76-year-old female who was admi tted to the hospital because of severe anemia as noted in the correction. Hemoglobin was around 6. 9 and upon questioning her, she has no history of nausea, vomiting, abdominal pain, or GI bleeding. She has dark stools because of vitamins. She does have some heartburn for which she used to take s ome medications. MEDICATIONS: Prior to the admission, she was on: 1. Albuterol. 2. Bentyl. 3. Clopidogrel. 4. Carvedilol. 5. Isosorbide. 6. Lisinopril. 7. Toprol. 8. Adalat 9. Nitroglycerin. 10. Zocor. 11. Aspirin. 12. Gabapentin. 13. Furosemide. 14. Budesonide. 15. Pantoprazole. 16. Ergocalciferol. 17. Insulin glargine. SOCIAL HISTORY: The patient does not smoke or drink, although she used to smoke before. PAST MEDICAL HISTORY: Includes cholecystectomy ____ recently. REVIEW OF SYSTEM: Diabetes and hypertension. 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 PHYSICAL EXAMINATION: GENERAL: The patient is a 76-year-old female who at this time is alert. She is thin built . VITAL SIGNS: She is afebrile, blood pressure 111/56, temperature 98. CARDIOVASCULAR: Normal heart sounds. RESPIRATORY: Normal breath sounds. ABDOMEN: Showed a soft abdomen with no palpable masses. No tenderness. LABORATORY WORKUP: Potassium is 4.2, BUN is 22, creatinine is 0.9, bilirubin 0.3, AST 22, ALT 33, a lkaline phosphatase 212, hemoglobin is 6.9. She is being transfused. WBC count 5300, neutrophils 7 5, platelets 127,000. The MCV is 97. Chest x-ray not in the chart yet. CLINICAL IMPRESSION: 1. The patient presenting with history of severe anemia which is normocytic, normochromic. She has dark stools secondary to vitamin. Certainly GI bleeding cannot be excluded. Rule out bleeding ulce r disease or AV malformation. She lost 100 pounds of weight. Rule out occult malignancy including gastrointestinal malignancy. 2. History of diabetes and hypertension, status post cholecystectomy. She has a borderline elevati on of alkaline phosphatase. PLAN: At this time, recommend upper endoscopy as well as lower endoscopy and I will be happy to fol low this patient along with you. Once again, doctor, thank you for this consultation. Dictated By: MARIUM OWEN MD NC/NTS Conf#: [id number] DID#: [id number] CC: ANUSHA CLAROS MD;*EndCC*
[2017-03-05] VITALS (10 sets, daily range): BP systolic 106–147; BP diastolic 51–67; PULSE 65–73; RESP 16–18
[2017-03-05] MEDS: ACCU-CHEK XX SCH (02:00)
[2017-03-05 04:08] LABS: HAAIG REFLEX REFLEX FILED
[2017-03-05 04:09] LABS: ADD SCAN DIFF NO
[2017-03-05 04:14] LABS: BASOPHIL # 0.1 10^3/ul (0.0-0.1); BASOPHILS % 0.7 % (0.0-2.0); EOSINOPHILS # 0.3 10^3/ul (0.0-0.5); EOSINOPHILS % 4.1 % (0.0-7.0); HEMATOCRIT 32.5 % (37.0-47.0); HEMOGLOBIN 10.7 g/dl (12.0-16.0); LYMPHOCYTES # 1.6 10^3/ul (0.8-2.9); LYMPHOCYTES % 23.2 % (15.0-51.0); MEAN CORPUSCULAR HEMOGLOBIN 30.5 pg (29.0-33.0); MEAN CORPUSCULAR HGB CONC 32.9 g/dl (32.0-37.0); MEAN CORPUSCULAR VOLUME 92.6 fl (82.0-101.0); MONOCYTE # 0.4 10^3/ul (0.3-0.9); MONOCYTES % 5.9 % (0.0-11.0); NEUTROPHIL # 4.5 10^3/ul (1.6-7.5); NEUTROPHILS % 65.7 % (39.0-77.0); PLATELET COUNT 137 10^3/UL (140-415); RED BLOOD COUNT 3.51 10^6/ul (4.20-5.40); RETICULOCYTE COUNT % 4.3 % (0.5-1.5); WHITE BLOOD COUNT 6.9 10^3/ul (4.8-10.8)
[2017-03-05 04:24] LABS: PLATELET COUNT 144 10^3/UL (140-415)
[2017-03-05 04:36] LABS: CHOL/HDL RATIO 4.1 RATIO; IRON 72 ug/dl (35-150)
[2017-03-05 04:39] LABS: INR 1.13; PROTIME 14.5 Sec (12.2-14.2); PT RATIO 1.1
[2017-03-05 04:40] LABS: PARTIAL THROMBOPLASTIN TIME 32.1 Sec (25.0-35.0)
[2017-03-05 04:42] LABS: THROMBIN TIME 17.6 SEC (13.8-19.1)
[2017-03-05 04:45] LABS: TOTAL IRON BINDING CAPACITY 215 ug/dl (241-421)
[2017-03-05 05:02] LABS: THYROID STIMULATING HORMONE 3.14 MIU/L (0.465-4.680)
[2017-03-05 05:25] LABS: HEPATITIS B CORE ANTIBODY NEGATIVE (NEGATIVE)
[2017-03-05 05:36] LABS: FOLATE 13.4 ng/ml (2.8-20.0)
[2017-03-05 05:38] LABS: D-DIMER 5540.46 ng/ml (<460)
[2017-03-05] MEDS: PANTOPRAZOLE (EC) 40 MG TAB PO SCH ×2 (06:00→18:00)
[2017-03-05] MEDS: FUROSEMIDE 20 MG TAB PO SCH ×2 (06:00→18:00)
--- NOTE | 2017-03-05 07:35 | RADRPT ---
PROCEDURE: US bilateral lower extremity arteries. CLINICAL INDICATION: Bilateral leg pain and decreased pulses. Claudication that interferes signif icantly with the patient's lifestyle. TECHNIQUE: Multiple longitudinal and transverse images of the bilateral lower extremity arteries w ere obtained with farr scale, pulsed Doppler, and color Doppler imaging. COMPARISON: No prior studies are available for comparison. FINDINGS: Right DIRECTOR OF CONTENT MARKETING:131 cm/sec PSFA:60 cm/sec MSFA:87 cm/sec DSFA:89 cm/sec POP:74 cm/sec SHIPYARD LABORER:48 cm/sec DPA:51 cm/sec Left DIRECTOR OF CONTENT MARKETING:145 cm/sec PSFA:100 cm/sec MSFA:138 cm/sec DSFA:110 cm/sec POP:70 cm/sec SHIPYARD LABORER:15 cm/sec DPA:62 cm/sec The right ankle-brachial index is 1.3 and the left ankle-brachial index is 1.0. There is normal triphasic flow throughout the femoral and popliteal systems. Monophasic flow is pre sent in the calf arteries bilaterally. IMPRESSION: 1. Abnormal monophasic flow bilaterally in the calf arteries. 2. Otherwise unremarkable study. RPTAT: QQ .Norberto Noonan MD, MD Date Time Electronically viewed and signed by .Norberto Noonan MD, on 03/05/2017 07:35 .R/
[2017-03-05] MEDS: INSULIN ASPART [NOVOLOG] 3 ML PEN SC SCH ×7 (07:50→20:55)
[2017-03-05] MEDS ORDERED: PROPOFOL 60 ML ONE (07:57)
--- NOTE | 2017-03-05 08:56 | GILP ---
DATE OF PROCEDURE: PROCEDURE: Esophagogastroduodenoscopy. PREOPERATIVE DIAGNOSIS: Patient presenting with a history of severe anemia. Rule out bleeding ulce r disease, arteriovenous malformation, malignancy, etc. POSTOPERATIVE DIAGNOSIS: Diffuse mild to moderate gastritis, a superficial ulcer in the gastric fun dus noted. Minimal reflux esophagitis. DESCRIPTION OF PROCEDURE: After informed written consent was obtained, the patient was asked to lie on the left lateral side. Intravenous anesthesia was given by the anesthesiologist, Dr. Brush. Whe n the patient became somnolent, the Olympus video upper endoscope was introduced into the oropharynx , then into the esophagus. The esophagus appeared normal, except for minimal reflux esophagitis, Lo s Ericka classification A. The scope at this time was advanced into the stomach. The stomach show ed evidence of diffuse erythema, friability and some edema of the gastric fundal folds noted as well . In the gastric fundus there is evidence of a superficial ulcer noted, with stigmata of bleeding. Biopsy was done from this ulcer. Biopsy was also done from the antrum, the lesser curvature, and t he fundus to rule out H. pylori infection. The duodenum appeared normal up to the end of the third portion. The scope at this time was withdrawn and on the way out no additional abnormalities were d etected and the procedure was terminated. PLAN: Recommend proton pump inhibitor therapy. Dictated By: MARIUM GARCIA/DO Conf#: [id number] DID#: [id number] CC: ANUSHA TATUM MD;*EndCC*
[2017-03-05] MEDS ORDERED: AMLODIPINE 10 MG TAB PO SCH (09:00)
[2017-03-05] MEDS: CYCLOSPORINE 0.05% OPH DROPERETTE BOTH EYES SCH ×2 (09:00→23:20)
--- NOTE | 2017-03-05 09:55 | GILP ---
DATE OF PROCEDURE: PROCEDURE: Colonoscopy. PREOPERATIVE DIAGNOSIS: Patient presenting with a history of severe anemia with gastrointestinal bl eeding, rule out colorectal neoplasm, diverticulosis, AV malformation. POSTOPERATIVE DIAGNOSES: 1. Diffuse mild diverticulosis. 2. Moderate degree of internal and external hemorrhoids. 3. Nodular fold in the rectum. Biopsy was done. DESCRIPTION OF PROCEDURE: After the informed written consent was obtained, the patient was asked to lie on the left lateral side. Intravenous anesthesia was given by anesthesiologist, Dr. Brush. Whe n the patient became somnolent, the Olympus video colonoscope was introduced into the rectum. Scope was advanced all the way to the cecum. Moderate degree of diverticulosis noted scattered all along the colon. No neoplasm noted, but the rectum showed evidence of a superficial nodular pattern of t he fold. Biopsies were obtained to rule out any possible infiltrating malignant process. Retroflex ion was performed. Moderate degree of internal hemorrhoids were noted and also when the scope was w ithdrawn moderate degree of external hemorrhoids were noted and the procedure was terminated. PLAN: Recommend wait for the pathology report. Dictated By: MARIUM GARCIA/NTS Conf#: [id number] DID#: [id number] CC: ANUSHA TATUM MD; MARIUM OWEN MD;*End*
[2017-03-05] MEDS: ISOSORBIDE MONONITRATE(SR)30 MG TAB PO SCH (10:11)
[2017-03-05] MEDS: CLOPIDOGREL 75 MG TAB PO SCH (10:12)
[2017-03-05] MEDS: ASPIRIN (EC) 81 MG TAB PO SCH (10:14)
[2017-03-05] MEDS: FERROUS SULFATE (EC) 325 MG TAB PO SCH ×2 (10:15→20:42)
[2017-03-05] MEDS: LISINOPRIL 20 MG TAB PO SCH (10:17)
[2017-03-05] MEDS: NIFEdipine (XL) 30 MG TAB PO SCH (10:18)
[2017-03-05] MEDS: SALMETEROL/FLUTICASONE 100/50 INHA INH SCH ×2 (10:19→20:43)
[2017-03-05] MEDS: FLUTICASONE 0.05% 16 GM NAS SPRAY NASAL SCH (10:19)
[2017-03-05] MEDS: HYDROCHLOROTHIAZIDE 25 MG TAB PO SCH (10:19)
[2017-03-05] MEDS: OCULAR LUBRICANT 3.5 GM OPH OINT BOTH EYES SCH ×2 (10:20→20:44)
[2017-03-05 10:44] LABS: HEMOGLOBIN 6.9 g/dl (12.0-16.0)
[2017-03-05 12:20] LABS: FIBRIN SPLIT PRODUCT <10 ug/ml (<10)
--- NOTE | 2017-03-05 15:32 | CONS ---
Date/Time of Note Date/Time of Note DATE: 03/05/17 TIME: 15:25 Assessment/Plan Assessment/Plan Chief Complaint/Hosp Course IMPRESSION: 1. Hypertension-now improved 2. Systolic murmur, assess etiology-mild MR/TRace TR by echo 3. Coronary artery disease, status post coronary artery bypass graft surgery, assess for acute coronary syndrome.NL EF by echo this admit 55-60 with LVDD 4. Dyslipidemia. 5. Diabetes mellitus. 6. Possible congestive heart failure by medications. 7. Anemia, severe s/p transfusion Recc: -For EGD/colonscopy today -Would consider holding asa/plavix given severe anemia requiring transfusion -Continue current CCB/imdur/coreg/zestril/HCTZ -Continue low dose statin Problems: Consultation Date/Type/Reason Admit Date/Time March 04, 2017 at 13:55 Initial Consult Date 03/04/17 Type of Consultation: Cardiology Reason for Consultation HTN Referring Provider: ANUSHA TATUM MD Exam/Review of Systems Vital Signs Vitals Vital Signs Date Time Temp Pulse Resp B/P Pulse Ox O2 Delivery O2 Flow Rate FiO2 03/05/17 09:35 16 129/65 97 Nasal Cannula 03/05/17 09:03 98.6 66 03/04/17 06:23 2.0 Intake and Output 03/04/17 03/04/17 03/05/17 15:00 23:00 07:00 Intake Total 620 ml 1700 ml Output Total 900 ml Balance 620 ml 800 ml Exam Review of Systems: CONSTITUTIONAL: No fevers, chills. PULMONARY: No sob CARDIOVASCULAR: No chest pain/palpitations GASTROINTESTINAL: No nausea/vomiting. GENITOURINARY: No hematuria/dysuria. MUSCULOSKELETAL: No myagias/arthalgias. PSYCHIATRIC: The patient denies depression. NEUROLOGIC: No weakness Constitutional: alert, oriented Psych: no complaints Head: normocephalic ENMT: mucosa pink and moist Neck: jvd, supple Respiratory: diminished breath sounds (at bases/B) Cardiovascular: regular rate and rhythm Gastrointestinal: non-tender, soft Musculoskeletal: muscle tone (normal) Extremities: edema (none) Neurological: other (No focal deficits) Results Result Diagram: 03/05/17 0355 03/05/17 0355 Results 24 hrs Laboratory Tests Test 03/04/17 17:56 03/04/17 18:24 03/04/17 21:59 03/05/17 00:50 Bedside Glucose 157 117 Troponin I < 0.012 < 0.012 Test 03/05/17 03:55 03/05/17 04:00 03/05/17 08:01 03/05/17 10:07 White Blood Count 6.9 # Red Blood Count 3.51 #L Hemoglobin 10.7 #L Hematocrit 32.5 #L Mean Corpuscular Volume 92.6 Mean Corpuscular Hemoglobin 30.5 Mean Corpuscular Hemoglobin Concent 32.9 Red Cell Distribution Width 16.0 H Platelet Count 144 Mean Platelet Volume 10.0 Neutrophils % 65.7 Lymphocytes % 23.2 Monocytes % 5.9 Eosinophils % 4.1 Basophils % 0.7 Nucleated Red Blood Cells % 0.0 Neutrophils # 4.5 Lymphocytes # 1.6 Monocytes # 0.4 Eosinophils # 0.3 Basophils # 0.1 Nucleated Red Blood Cells # 0.0 Absolute Reticulocyte Count 0.150 H Percent Reticulocyte Count 4.3 H Prothrombin Time 14.5 H Prothrombin Time Ratio 1.1 INR International Normalized Ratio 1.13 Activated Partial Thromboplast Time 32.1 Thrombin Time 17.6 Fibrinogen 378.0 Plasma Fibrin Degradation Products <10 D-Dimer 5540.46 H D-Dimer Comment Potassium Level 3.9 Hemoglobin A1c 5.7 Iron Level 72 Total Iron Binding Capacity 215 L Percent Iron Saturation 33 Ferritin 425.0 H Lactate Dehydrogenase 521 Troponin I < 0.012 Triglycerides Level 267 H Cholesterol Level 130 LDL Cholesterol, Calculated 46 HDL Cholesterol 31 L Cholesterol/HDL Ratio 4.1 Vitamin B12 Level 711 Folate 13.4 Thyroid Stimulating Hormone (TSH) 3.140 Hepatitis B Surface Antigen NEGATIVE Hepatitis B Core Total Antibody NEGATIVE Hepatitis C Antibody NEGATIVE HIV (1&2) Antibody NEGATIVE Stool Occult Blood NEGATIVE Bedside Glucose 140 155 Test 03/05/17 12:36 Bedside Glucose 262 H Medications Medications Current Medications Eye Lubricant (Akwa Oint) 1 applic BID BOTH EYES Last administered on 03/05/17 10:20; Admin Dose 1 APPLIC; Start 03/04/17 at 09:00 Aspirin (Halfprin) 81 mg DAILY PO Last administered on 03/05/17 10:14; Admin Dose 81 MG; Start 03/04/17 at 09:00 Carvedilol (Coreg) 12.5 mg BID PO Last administered on 03/05/17 10:17; Admin Dose 12.5 MG; Start 03/04/17 at 09:00 Clopidogrel Bisulfate (plaVIX) 75 mg DAILY PO Last administered on 03/05/17 10: 12; Admin Dose 75 MG; Start 03/04/17 at 09:00 Cyclosporine (Restasis) 1 drop Q12 BOTH EYES Last administered on 03/04/17 21: 20; Admin Dose 1 DROP; Start 03/04/17 at 09:00 Ergocalciferol (Drisdol) 50,000 unit Q7D PO ; Start 03/10/17 at 09:00 Ferrous Sulfate (Ferrous Sulfate (Ec)) 325 mg BID PO Last administered on 10:15; Admin Dose 325 MG; Start 03/04/17 at 09:00 Fluticasone Propionate (Flonase 0.05% Nasal) 1 spray DAILY NASAL Last administered on 03/05/17 10:19; Admin Dose 1 SPRAY; Start 03/04/17 at 09:00 Gabapentin (Neurontin) 100 mg QPM PO Last administered on 03/04/17 21:21; Admin Dose 100 MG; Start 03/04/17 at 21:00 Insulin Glargine (Lantus) 15 unit QHS SC ; Start 03/04/17 at 21:00 Nifedipine (Procardia Xl) 60 mg QPM PO Last administered on 03/04/17 21:21; Admin Dose 60 MG; Start 03/04/17 at 21:00 Nitroglycerin (Nitroglycerin (Sl Tab) 0.4 Mg) 1 tab Q5M PRN SL CHEST PAIN; Start 03/03/17 at 23:30 Pantoprazole (Protonix Tab) 40 mg BID@,18 PO Last administered on 03/04/17 17 :55; Admin Dose 40 MG; Start 03/04/17 at 06:00 Salmeterol Xinafoate/ Fluticasone (Advair 100/50 Diskus) 1 inh BID INH Last administered on 03/05/17 10:19; Admin Dose 1 INH; Start 03/04/17 at 09:00 Lisinopril (Zestril) 20 mg DAILY PO Last administered on 03/05/17 10:17; Admin Dose 20 MG; Start 03/04/17 at 09:00 Atorvastatin Calcium (Lipitor) 10 mg DAILY@21 PO Last administered on 03/04/17 21:22; Admin Dose 10 MG; Start 03/04/17 at 21:00 Diagnostic Test (Pha) (Accu-Chek) 1 ea 02 XX ; Start 03/04/17 at 02:00 Miscellaneous Information 1 ea NOTE XX ; Start 03/04/17 at 00:10 Glucose (Glutose) 15 gm Q15M PRN PO DECREASED GLUCOSE; Start 03/04/17 at 00:10 Glucose (Glutose) 22.5 gm Q15M PRN PO DECREASED GLUCOSE; Start 03/04/17 at 00:10 Dextrose (D50w Syringe) 25 ml Q15M PRN IV DECREASED GLUCOSE; Start 03/04/17 at 00:10 Dextrose (D50w Syringe) 50 ml Q15M PRN IV DECREASED GLUCOSE; Start 03/04/17 at 00:10 Glucagon (Glucagen) 1 mg Q15M PRN IM DECREASED GLUCOSE; Start 03/04/17 at 00:10 Glucose (Glutose) 15 gm Q15M PRN BUCCAL DECREASED GLUCOSE; Start 03/04/17 at 00: 10 Hydrochlorothiazide (Hydrochlorothiazide) 25 mg DAILY PO Last administered on 10:19; Admin Dose 25 MG; Start 03/04/17 at 09:00 Isosorbide Mononitrate (Imdur) 30 mg DAILY PO Last administered on 03/05/17 10: 11; Admin Dose 30 MG; Start 03/05/17 at 09:00 Nifedipine (Procardia Xl) 30 mg AM PO Last administered on 03/05/17 10:18; Admin Dose 30 MG; Start 03/05/17 at 09:00 ELEN SHAY March 05, 2017 15:32
--- NOTE | 2017-03-05 16:10 | PN ---
Date/Time of Note Date/Time of Note DATE: 03/05/17 TIME: 16:02 Assessment/Plan VTE Prophylaxis VTE Prophylaxis Intervention: SCD's Lines/Catheters [facility] Type (from [facility]): Peripheral IV Urinary Cath still in place: No Assessment/Plan Chief Complaint/Hosp Course - Symptomatic anemia with mild thrombocytopenia, etiology unknown. Dr. Curtis is following in hematology oncology consultation. Dr. Simon is following in gastroenterology consultation. Status post EGD and colonoscopy. Follow-up pathology report. - Diffuse mild to moderate gastritis, superficial gastric ulcer and minimal reflux esophagitis per EGD, continue Protonix. - Coronary artery disease, status post coronary artery bypass graft. Continue aspirin and Plavix. - Hypertension. Continue Coreg and Procardia. - Dyslipidemia. Continue statin. - Diabetes. Continue Lantus and premeal insulin in addition to sliding scale. Further recommendations based on clinical course. Plan of care discussed with Dr. Claros. Problems: Subjective 24 Hr Interval Summary Free Text/Dictation No acute events of events overnight, blood pressure is better controlled today, patient complains of generalized weakness, denies fever. Exam/Review of Systems Vital Signs Vitals Vital Signs Date Time Temp Pulse Resp B/P Pulse Ox O2 Delivery O2 Flow Rate FiO2 03/05/17 09:35 16 129/65 97 Nasal Cannula 03/05/17 09:03 98.6 66 03/04/17 06:23 2.0 Intake and Output 03/04/17 03/04/17 03/05/17 15:00 23:00 07:00 Intake Total 620 ml 1700 ml Output Total 900 ml Balance 620 ml 800 ml Exam Constitutional: alert, oriented Psych: no complaints Head: atraumatic, normocephalic Eyes: nl conjunctiva ENMT: nl external ears & nose Neck: non-tender, supple Respiratory: clear to auscultation, normal air movement Cardiovascular: nl pulses, regular rate and rhythm Gastrointestinal: non-tender, soft Musculoskeletal: nl extremities to inspection Extremities: normal pulses 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 Results Result Diagram: 03/05/17 0355 03/05/17 0355 Results 24 hrs Laboratory Tests Test 03/04/17 17:56 03/04/17 18:24 03/04/17 21:59 03/05/17 00:50 Bedside Glucose 157 117 Troponin I < 0.012 < 0.012 Test 03/05/17 03:55 03/05/17 04:00 03/05/17 08:01 03/05/17 10:07 White Blood Count 6.9 # Red Blood Count 3.51 #L Hemoglobin 10.7 #L Hematocrit 32.5 #L Mean Corpuscular Volume 92.6 Mean Corpuscular Hemoglobin 30.5 Mean Corpuscular Hemoglobin Concent 32.9 Red Cell Distribution Width 16.0 H Platelet Count 144 Mean Platelet Volume 10.0 Neutrophils % 65.7 Lymphocytes % 23.2 Monocytes % 5.9 Eosinophils % 4.1 Basophils % 0.7 Nucleated Red Blood Cells % 0.0 Neutrophils # 4.5 Lymphocytes # 1.6 Monocytes # 0.4 Eosinophils # 0.3 Basophils # 0.1 Nucleated Red Blood Cells # 0.0 Absolute Reticulocyte Count 0.150 H Percent Reticulocyte Count 4.3 H Prothrombin Time 14.5 H Prothrombin Time Ratio 1.1 INR International Normalized Ratio 1.13 Activated Partial Thromboplast Time 32.1 Thrombin Time 17.6 Fibrinogen 378.0 Plasma Fibrin Degradation Products <10 D-Dimer 5540.46 H D-Dimer Comment Potassium Level 3.9 Hemoglobin A1c 5.7 Iron Level 72 Total Iron Binding Capacity 215 L Percent Iron Saturation 33 Ferritin 425.0 H Lactate Dehydrogenase 521 Troponin I < 0.012 Triglycerides Level 267 H Cholesterol Level 130 LDL Cholesterol, Calculated 46 HDL Cholesterol 31 L Cholesterol/HDL Ratio 4.1 Vitamin B12 Level 711 Folate 13.4 Thyroid Stimulating Hormone (TSH) 3.140 Hepatitis B Surface Antigen NEGATIVE Hepatitis B Core Total Antibody NEGATIVE Hepatitis C Antibody NEGATIVE HIV (1&2) Antibody NEGATIVE Stool Occult Blood NEGATIVE Bedside Glucose 140 155 Test 03/05/17 12:36 Bedside Glucose 262 H Medications Medications Current Medications Eye Lubricant (Akwa Oint) 1 applic BID BOTH EYES Last administered on 03/05/17 10:20; Admin Dose 1 APPLIC; Start 03/04/17 at 09:00 Aspirin (Halfprin) 81 mg DAILY PO Last administered on 03/05/17 10:14; Admin Dose 81 MG; Start 03/04/17 at 09:00 Carvedilol (Coreg) 12.5 mg BID PO Last administered on 03/05/17 10:17; Admin Dose 12.5 MG; Start 03/04/17 at 09:00 Clopidogrel Bisulfate (plaVIX) 75 mg DAILY PO Last administered on 03/05/17 10: 12; Admin Dose 75 MG; Start 03/04/17 at 09:00 Cyclosporine (Restasis) 1 drop Q12 BOTH EYES Last administered on 03/04/17 21: 20; Admin Dose 1 DROP; Start 03/04/17 at 09:00 Ergocalciferol (Drisdol) 50,000 unit Q7D PO ; Start 03/10/17 at 09:00 Ferrous Sulfate (Ferrous Sulfate (Ec)) 325 mg BID PO Last administered on 10:15; Admin Dose 325 MG; Start 03/04/17 at 09:00 Fluticasone Propionate (Flonase 0.05% Nasal) 1 spray DAILY NASAL Last administered on 03/05/17 10:19; Admin Dose 1 SPRAY; Start 03/04/17 at 09:00 Gabapentin (Neurontin) 100 mg QPM PO Last administered on 03/04/17 21:21; Admin Dose 100 MG; Start 03/04/17 at 21:00 Insulin Glargine (Lantus) 15 unit QHS SC ; Start 03/04/17 at 21:00 Nifedipine (Procardia Xl) 60 mg QPM PO Last administered on 03/04/17 21:21; Admin Dose 60 MG; Start 03/04/17 at 21:00 Nitroglycerin (Nitroglycerin (Sl Tab) 0.4 Mg) 1 tab Q5M PRN SL CHEST PAIN; Start 03/03/17 at 23:30 Pantoprazole (Protonix Tab) 40 mg BID@18 PO Last administered on 03/04/17 17 :55; Admin Dose 40 MG; Start 03/04/17 at 06:00 Salmeterol Xinafoate/ Fluticasone (Advair 100/50 Diskus) 1 inh BID INH Last administered on 03/05/17 10:19; Admin Dose 1 INH; Start 03/04/17 at 09:00 Lisinopril (Zestril) 20 mg DAILY PO Last administered on 03/05/17 10:17; Admin Dose 20 MG; Start 03/04/17 at 09:00 Atorvastatin Calcium (Lipitor) 10 mg DAILY@21 PO Last administered on 03/04/17 21:22; Admin Dose 10 MG; Start 03/04/17 at 21:00 Diagnostic Test (Pha) (Accu-Chek) 1 ea 02 XX ; Start 03/04/17 at 02:00 Miscellaneous Information 1 ea NOTE XX ; Start 03/04/17 at 00:10 Glucose (Glutose) 15 gm Q15M PRN PO DECREASED GLUCOSE; Start 03/04/17 at 00:10 Glucose (Glutose) 22.5 gm Q15M PRN PO DECREASED GLUCOSE; Start 03/04/17 at 00:10 Dextrose (D50w Syringe) 25 ml Q15M PRN IV DECREASED GLUCOSE; Start 03/04/17 at 00:10 Dextrose (D50w Syringe) 50 ml Q15M PRN IV DECREASED GLUCOSE; Start 03/04/17 at 00:10 Glucagon (Glucagen) 1 mg Q15M PRN IM DECREASED GLUCOSE; Start 03/04/17 at 00:10 Glucose (Glutose) 15 gm Q15M PRN BUCCAL DECREASED GLUCOSE; Start 03/04/17 at 00: 10 Hydrochlorothiazide (Hydrochlorothiazide) 25 mg DAILY PO Last administered on 10:19; Admin Dose 25 MG; Start 03/04/17 at 09:00 Isosorbide Mononitrate (Imdur) 30 mg DAILY PO Last administered on 03/05/17 10: 11; Admin Dose 30 MG; Start 03/05/17 at 09:00 Nifedipine (Procardia Xl) 30 mg AM PO Last administered on 03/05/17 10:18; Admin Dose 30 MG; Start 03/05/17 at 09:00 DONTE OSORIO March 05, 2017 16:10
--- NOTE | 2017-03-05 16:40 | RADRPT ---
Vent Rate: 68 bpm RR Interval: 0 msec CO Interval: 166 msec QRS Duration: 128 msec QT Interval: 450 msec QTC Interval: 478 msec P-R-T [place]: 35 - 45 - 48 degrees Normal sinus rhythm Nonspecific intraventricular block Abnormal ECG Electronically Signed By: Flavio Buckner [id number]
--- NOTE | 2017-03-05 16:41 | RADRPT ---
Vent Rate: 62 bpm RR Interval: 0 msec [place] Interval: 162 msec QRS Duration: 130 msec QT Interval: 462 msec QTC Interval: 468 msec P-R-T [place]: 42 - 64 - 58 degrees Normal sinus rhythm Right bundle branch block Abnormal ECG Electronically Signed By: Flavio Buckner [id number]
--- NOTE | 2017-03-05 18:19 | CONS ---
Date/Time of Note Date/Time of Note DATE: 03/05/17 TIME: 18:12 Assessment/Plan Assessment/Plan Chief Complaint/Hosp Course The patient is a 76-year-old female with severe normocytic anemia with Hgb 6.9 and slightly elevated RDW 15.3, and mild thrombocytopenia without evidence of acute bleed - s/p 2 units pRBCs 03/04/17, now Hgb 10.7 - Peripheral smear reviewed by pathologist and showed appropriate response to anemia with polychromatophilic macrocytes, no significant red cell changes, normochromic/normocytic, no dysplastic cells, no blasts, no nucleated RBCs noted - Iron panel Fe 72, TIBC low at 215, %sat 33, ferritin 425 consistent with anemia of chronic inflammation; LDH WNL, retic appropriately elevated at 150K, B12/folate, TSH WNL; pending haptoglobin, methylmalonic acid, homocysteine - s/p EGD 03/05/17 that showed diffuse mild to moderate gastritis, a superficial ulcer in the gastric fundus noted. Minimal reflux esophagitis. On PPI therapy. f/u path report. - s/p colonoscopy 03/05/17 that showed diffuse mild diverticulosis, moderate degree of internal and external hemorrhoids. Nodular fold in the rectum. # Thrombocytopenia, mild, resolved on re-check. HIV/hep panel negative, DIC panel not consistent with DIC. # Elevated D-dimer, may be related to underlying inflammatory state. Low threshold to check LE dopplers or CTA if symptoms of SOB, LE edema/pain,etc. Problems: Consultation Date/Type/Reason Admit Date/Time March 04, 2017 at 13:55 Initial Consult Date 03/04/17 Type of Consultation: Hematology Referring Provider: ANUSHA TATUM MD Exam/Review of Systems Vital Signs Vitals Vital Signs Date Time Temp Pulse Resp B/P Pulse Ox O2 Delivery O2 Flow Rate FiO2 03/05/17 09:35 16 129/65 97 Nasal Cannula 03/05/17 09:03 98.6 66 03/04/17 06:23 2.0 Intake and Output 03/04/17 03/04/17 03/05/17 15:00 23:00 07:00 Intake Total 620 ml 1700 ml Output Total 900 ml Balance 620 ml 800 ml Exam Constitutional: alert, oriented Psych: no complaints Head: normocephalic Neck: supple Respiratory: clear to auscultation Cardiovascular: regular rate and rhythm Gastrointestinal: non-tender, soft Musculoskeletal: nl extremities to inspection Neurological: LINE HELPER II-XII 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 Results Result Diagram: 03/05/17 0355 03/05/17 0355 Results 24 hrs Laboratory Tests Test 03/04/17 18:24 03/04/17 21:59 03/05/17 00:50 03/05/17 03:55 Troponin I < 0.012 < 0.012 < 0.012 Bedside Glucose 117 White Blood Count 6.9 # Red Blood Count 3.51 #L Hemoglobin 10.7 #L Hematocrit 32.5 #L Mean Corpuscular Volume 92.6 Mean Corpuscular Hemoglobin 30.5 Mean Corpuscular Hemoglobin Concent 32.9 Red Cell Distribution Width 16.0 H Platelet Count 144 Mean Platelet Volume 10.0 Neutrophils % 65.7 Lymphocytes % 23.2 Monocytes % 5.9 Eosinophils % 4.1 Basophils % 0.7 Nucleated Red Blood Cells % 0.0 Neutrophils # 4.5 Lymphocytes # 1.6 Monocytes # 0.4 Eosinophils # 0.3 Basophils # 0.1 Nucleated Red Blood Cells # 0.0 Absolute Reticulocyte Count 0.150 H Percent Reticulocyte Count 4.3 H Prothrombin Time 14.5 H Prothrombin Time Ratio 1.1 INR International Normalized Ratio 1.13 Activated Partial Thromboplast Time 32.1 Thrombin Time 17.6 Fibrinogen 378.0 Plasma Fibrin Degradation Products <10 D-Dimer 5540.46 H D-Dimer Comment Potassium Level 3.9 Hemoglobin A1c 5.7 Iron Level 72 Total Iron Binding Capacity 215 L Percent Iron Saturation 33 Ferritin 425.0 H Lactate Dehydrogenase 521 Triglycerides Level 267 H Cholesterol Level 130 LDL Cholesterol, Calculated 46 HDL Cholesterol 31 L Cholesterol/HDL Ratio 4.1 Vitamin B12 Level 711 Folate 13.4 Thyroid Stimulating Hormone (TSH) 3.140 Hepatitis B Surface Antigen NEGATIVE Hepatitis B Core Total Antibody NEGATIVE Hepatitis C Antibody NEGATIVE HIV (1&2) Antibody NEGATIVE Test 03/05/17 04:00 03/05/17 08:01 03/05/17 10:07 03/05/17 12:36 Stool Occult Blood NEGATIVE Bedside Glucose 140 155 262 H Test 03/05/17 17:30 Bedside Glucose 111 Medications Medications Current Medications Eye Lubricant (Akwa Oint) 1 applic BID BOTH EYES Last administered on 03/05/17t 10:20; Admin Dose 1 APPLIC; Start 03/04/17 at 09:00 Aspirin (Halfprin) 81 mg DAILY PO Last administered on 03/05/17 10:14; Admin Dose 81 MG; Start 03/04/17 at 09:00 Carvedilol (Coreg) 12.5 mg BID PO Last administered on 03/05/17 10:17; Admin Dose 12.5 MG; Start 03/04/17 at 09:00 Clopidogrel Bisulfate (plaVIX) 75 mg DAILY PO Last administered on 03/05/17 10: 12; Admin Dose 75 MG; Start 03/04/17 at 09:00 Cyclosporine (Restasis) 1 drop Q12 BOTH EYES Last administered on 03/04/17 21: 20; Admin Dose 1 DROP; Start 03/04/17 at 09:00 Ergocalciferol (Drisdol) 50,000 unit Q7D PO ; Start 03/10/17 at 09:00 Ferrous Sulfate (Ferrous Sulfate (Ec)) 325 mg BID PO Last administered on 10:15; Admin Dose 325 MG; Start 03/04/17 at 09:00 Fluticasone Propionate (Flonase 0.05% Nasal) 1 spray DAILY NASAL Last administered on 03/05/17 10:19; Admin Dose 1 SPRAY; Start 03/04/17 at 09:00 Gabapentin (Neurontin) 100 mg QPM PO Last administered on 03/04/17 21:21; Admin Dose 100 MG; Start 03/04/17 at 21:00 Insulin Glargine (Lantus) 15 unit QHS SC ; Start 03/04/17 at 21:00 Nifedipine (Procardia Xl) 60 mg QPM PO Last administered on 03/04/17 21:21; Admin Dose 60 MG; Start 03/04/17 at 21:00 Nitroglycerin (Nitroglycerin (Sl Tab) 0.4 Mg) 1 tab Q5M PRN SL CHEST PAIN; Start 03/03/17 at 23:30 Pantoprazole (Protonix Tab) 40 mg BID@06,18 PO Last administered on 03/04/17 17 :55; Admin Dose 40 MG; Start 03/04/17 at 06:00 Salmeterol Xinafoate/ Fluticasone (Advair 100/50 Diskus) 1 inh BID INH Last administered on 03/05/17 10:19; Admin Dose 1 INH; Start 03/04/17 at 09:00 Lisinopril (Zestril) 20 mg DAILY PO Last administered on 03/05/17 10:17; Admin Dose 20 MG; Start 03/04/17 at 09:00 Atorvastatin Calcium (Lipitor) 10 mg DAILY@21 PO Last administered on 03/04/17 21:22; Admin Dose 10 MG; Start 03/04/17 at 21:00 Diagnostic Test (Pha) (Accu-Chek) 1 ea 02 XX ; Start 03/04/17 at 02:00 Miscellaneous Information 1 ea NOTE XX ; Start 03/04/17 at 00:10 Glucose (Glutose) 15 gm Q15M PRN PO DECREASED GLUCOSE; Start 03/04/17 at 00:10 Glucose (Glutose) 22.5 gm Q15M PRN PO DECREASED GLUCOSE; Start 03/04/17 at 00:10 Dextrose (D50w Syringe) 25 ml Q15M PRN IV DECREASED GLUCOSE; Start 03/04/17 at 00:10 Dextrose (D50w Syringe) 50 ml Q15M PRN IV DECREASED GLUCOSE; Start 03/04/17 at 00:10 Glucagon (Glucagen) 1 mg Q15M PRN IM DECREASED GLUCOSE; Start 03/04/17 at 00:10 Glucose (Glutose) 15 gm Q15M PRN BUCCAL DECREASED GLUCOSE; Start 03/04/17 at 00: 10 Hydrochlorothiazide (Hydrochlorothiazide) 25 mg DAILY PO Last administered on 10:19; Admin Dose 25 MG; Start 03/04/17 at 09:00 Isosorbide Mononitrate (Imdur) 30 mg DAILY PO Last administered on 03/05/17 10: 11; Admin Dose 30 MG; Start 03/05/17 at 09:00 Nifedipine (Procardia Xl) 30 mg AM PO Last administered on 03/05/17 10:18; Admin Dose 30 MG; Start 03/05/17 at 09:00 MIKE SEGURA MD March 05, 2017 18:19
[2017-03-05] MEDS: ATORVASTATIN 10 MG TAB PO SCH (20:42)
[2017-03-05] MEDS: GABAPENTIN 100 MG CAP PO SCH (20:43)
[2017-03-05] MEDS: NIFEdipine (XL) 60 MG TAB PO SCH (20:48)
[2017-03-05] MEDS: INSULIN GLARGINE [LANtus] 3 ML PEN SC SCH (20:55)
[2017-03-06] MEDS: ACCU-CHEK XX SCH (02:00)
[2017-03-06 05:07] LABS: ADD SCAN DIFF NO
[2017-03-06 05:13] LABS: BASOPHIL # 0.1 10^3/ul (0.0-0.1); BASOPHILS % 0.6 % (0.0-2.0); EOSINOPHILS # 0.2 10^3/ul (0.0-0.5); EOSINOPHILS % 2.6 % (0.0-7.0); HEMATOCRIT 31.2 % (37.0-47.0); HEMOGLOBIN 10.1 g/dl (12.0-16.0); LYMPHOCYTES # 1.7 10^3/ul (0.8-2.9); LYMPHOCYTES % 20.7 % (15.0-51.0); MEAN CORPUSCULAR HEMOGLOBIN 30.4 pg (29.0-33.0); MEAN CORPUSCULAR HGB CONC 32.4 g/dl (32.0-37.0); MEAN PLATELET VOLUME 10.2 fl (7.4-10.4); MONOCYTE # 0.5 10^3/ul (0.3-0.9); NEUTROPHIL # 5.8 10^3/ul (1.6-7.5); NEUTROPHILS % 69.7 % (39.0-77.0); PLATELET COUNT 126 10^3/UL (140-415); RED BLOOD COUNT 3.32 10^6/ul (4.20-5.40); RED CELL DISTRIBUTION WIDTH 15.9 % (11.5-14.5); WHITE BLOOD COUNT 8.2 10^3/ul (4.8-10.8)
[2017-03-06] MEDS: PANTOPRAZOLE (EC) 40 MG TAB PO SCH ×2 (05:27→18:15)
[2017-03-06] MEDS: FUROSEMIDE 20 MG TAB PO SCH ×2 (05:27→18:18)
[2017-03-06 05:43] LABS: POTASSIUM 3.5 mmol/L (3.5-5.1)
[2017-03-06 05:45] LABS: CREATININE 1.08 mg/dl (0.44-1.00)
[2017-03-06 05:46] LABS: CALCIUM 8.7 mg/dl (8.4-10.2)
[2017-03-06] MEDS: INSULIN ASPART [NOVOLOG] 3 ML PEN SC SCH ×7 (07:50→20:22)
[2017-03-06 08:10] VITALS: BP 140/72; RESP 18
[2017-03-06] MEDS: LISINOPRIL 20 MG TAB PO SCH (09:00)
[2017-03-06] MEDS: HYDROCHLOROTHIAZIDE 25 MG TAB PO SCH (09:00)
[2017-03-06] MEDS: CYCLOSPORINE 0.05% OPH DROPERETTE BOTH EYES SCH ×2 (09:25→21:42)
[2017-03-06] MEDS: FERROUS SULFATE (EC) 325 MG TAB PO SCH ×2 (09:26→21:43)
[2017-03-06] MEDS: ASPIRIN (EC) 81 MG TAB PO SCH (09:26)
[2017-03-06] MEDS: SALMETEROL/FLUTICASONE 100/50 INHA INH SCH ×2 (10:23→21:39)
[2017-03-06] MEDS: OCULAR LUBRICANT 3.5 GM OPH OINT BOTH EYES SCH ×2 (10:23→21:53)
[2017-03-06] MEDS: FLUTICASONE 0.05% 16 GM NAS SPRAY NASAL SCH (10:24)
[2017-03-06] MEDS: ISOSORBIDE MONONITRATE(SR)30 MG TAB PO SCH (10:24)
[2017-03-06] MEDS: NIFEdipine (XL) 30 MG TAB PO SCH (10:24)
--- NOTE | 2017-03-06 11:27 | PN ---
Date/Time of Note Date/Time of Note DATE: 03/06/17 TIME: 11:24 Assessment/Plan VTE Prophylaxis VTE Prophylaxis Intervention: other Lines/Catheters IV [facility] Type (from [facility] Peripheral IV Urinary Cath still in place: No Assessment/Plan Assessment/Plan - Elevated BUN/Cr- will do gentle hydration - Symptomatic anemia with mild thrombocytopenia, etiology unknown. - per Dr. Curtis is following in hematology oncology consultation. - per Dr. Simon in gastroenterology consultation. Status post EGD and colonoscopy. Follow-up pathology report. - Diffuse mild to moderate gastritis, superficial gastric ulcer and minimal reflux esophagitis per EGD, continue Protonix. - Coronary artery disease, status post coronary artery bypass graft. Continue aspirin and Plavix. - Hypertension. Continue Coreg and Procardia. - Dyslipidemia. Continue statin. - Diabetes. Continue Lantus and premeal insulin in addition to sliding scale. Further recommendations based on clinical course. Plan of care discussed with Dr. Claros. Subjective 24 Hr Interval Summary Eyes: no complaints ENT: no complaints Respiratory: no complaints Cardiovascular: no complaints Exam/Review of Systems Vital Signs Vitals Vital Signs Date Time Temp Pulse Resp B/P Pulse Ox O2 Delivery O2 Flow Rate FiO2 03/06/17 08:10 98.0 80 18 140/72 99 03/05/17 09:35 Nasal Cannula 03/04/17 06:23 2.0 Intake and Output 03/05/17 03/05/17 03/06/17 15:00 23:00 07:00 Intake Total 500 ml 400 ml Balance 500 ml 400 ml Exam Constitutional: alert, well developed Psych: nl mood/affect Eyes: PERRL, nl sclera Neck: non-tender Respiratory: clear to auscultation Cardiovascular: nl pulses Gastrointestinal: non-tender, soft Musculoskeletal: nl extremities to inspection Extremities: normal pulses Skin: nl turgor Lymph: nontender Results Result Diagram: 03/06/17 0425 03/06/17 0425 Results 24 hrs Laboratory Tests Test 03/05/17 12:36 03/05/17 17:30 03/05/17 20:52 03/06/17 04:25 Bedside Glucose 262 H 111 133 White Blood Count 8.2 Red Blood Count 3.32 L Hemoglobin 10.1 L Hematocrit 31.2 L Mean Corpuscular Volume 94.0 Mean Corpuscular Hemoglobin 30.4 Mean Corpuscular Hemoglobin Concent 32.4 Red Cell Distribution Width 15.9 H Platelet Count 126 L Mean Platelet Volume 10.2 Neutrophils % 69.7 Lymphocytes % 20.7 Monocytes % 6.0 Eosinophils % 2.6 Basophils % 0.6 Nucleated Red Blood Cells % 0.0 Neutrophils # 5.8 Lymphocytes # 1.7 Monocytes # 0.5 Eosinophils # 0.2 Basophils # 0.1 Nucleated Red Blood Cells # 0.0 Sodium Level 139 Potassium Level 3.5 Chloride Level 106 Carbon Dioxide Level 23 Anion Gap 14 Blood Urea Nitrogen 23 H Creatinine 1.08 H Glucose Level 127 # Calcium Level 8.7 Test 03/06/17 08:34 Bedside Glucose 133 Medications Medications Current Medications Eye Lubricant (Akwa Oint) 1 applic BID BOTH EYES Last administered on 03/06/17 10:23; Admin Dose 1 APPLIC; Start 03/04/17 at 09:00 Aspirin (Halfprin) 81 mg DAILY PO Last administered on 03/06/17 09:26; Admin Dose 81 MG; Start 03/04/17 at 09:00 Carvedilol (Coreg) 12.5 mg BID PO Last administered on 03/05/17 20:43; Admin Dose 12.5 MG; Start 03/04/17 at 09:00 Clopidogrel Bisulfate (plaVIX) 75 mg DAILY PO Last administered on 03/05/17 10: 12; Admin Dose 75 MG; Start 03/04/17 at 09:00; Status Future Hold Ergocalciferol (Drisdol) 50,000 unit Q7D PO ; Start 03/10/17 at 09:00 Ferrous Sulfate (Ferrous Sulfate (Ec)) 325 mg BID PO Last administered on 09:26; Admin Dose 325 MG; Start 03/04/17 at 09:00 Fluticasone Propionate (Flonase 0.05% Nasal) 1 spray DAILY NASAL Last administered on 03/06/17 10:24; Admin Dose 1 SPRAY; Start 03/04/17 at 09:00 Gabapentin (Neurontin) 100 mg QPM PO Last administered on 03/05/17 20:43; Admin Dose 100 MG; Start 03/04/17 at 21:00 Insulin Glargine (Lantus) 15 unit QHS SC ; Start 03/04/17 at 21:00 Nifedipine (Procardia Xl) 60 mg QPM PO Last administered on 03/05/17 20:48; Admin Dose 60 MG; Start 03/04/17 at 21:00 Nitroglycerin (Nitroglycerin (Sl Tab) 0.4 Mg) 1 tab Q5M PRN SL CHEST PAIN; Start 03/03/17 at 23:30 Pantoprazole (Protonix Tab) 40 mg BID@06,18 PO Last administered on 03/06/17 05 :27; Admin Dose 40 MG; Start 03/04/17 at 06:00 Salmeterol Xinafoate/ Fluticasone (Advair 100/50 Diskus) 1 inh BID INH Last administered on 03/06/17 10:23; Admin Dose 1 INH; Start 03/04/17 at 09:00 Lisinopril (Zestril) 20 mg DAILY PO Last administered on 03/05/17 10:17; Admin Dose 20 MG; Start 03/04/17 at 09:00 Atorvastatin Calcium (Lipitor) 10 mg DAILY@21 PO Last administered on 03/05/17 20:42; Admin Dose 10 MG; Start 03/04/17 at 21:00 Diagnostic Test (Pha) (Accu-Chek) 1 ea 02 XX ; Start 03/04/17 at 02:00 Miscellaneous Information 1 ea NOTE XX ; Start 03/04/17 at 00:10 Glucose (Glutose) 15 gm Q15M PRN PO DECREASED GLUCOSE; Start 03/04/17 at 00:10 Glucose (Glutose) 22.5 gm Q15M PRN PO DECREASED GLUCOSE; Start 03/04/17 at 00:10 Dextrose (D50w Syringe) 25 ml Q15M PRN IV DECREASED GLUCOSE; Start 03/04/17 at 00:10 Dextrose (D50w Syringe) 50 ml Q15M PRN IV DECREASED GLUCOSE; Start 03/04/17 at 00:10 Glucagon (Glucagen) 1 mg Q15M PRN IM DECREASED GLUCOSE; Start 03/04/17 at 00:10 Glucose (Glutose) 15 gm Q15M PRN BUCCAL DECREASED GLUCOSE; Start 03/04/17 at 00: 10 Hydrochlorothiazide (Hydrochlorothiazide) 25 mg DAILY PO Last administered on 10:19; Admin Dose 25 MG; Start 03/04/17 at 09:00 Isosorbide Mononitrate (Imdur) 30 mg DAILY PO Last administered on 03/05/17 10: 11; Admin Dose 30 MG; Start 03/05/17 at 09:00 Nifedipine (Procardia Xl) 30 mg AM PO Last administered on 03/05/17 10:18; Admin Dose 30 MG; Start 03/05/17 at 09:00 Cyclosporine (Restasis) 1 drop Q12 BOTH EYES Last administered on 03/06/17 09: 25; Admin Dose 1 DROP; Start 03/05/17 at 22:18 AZALEA NICOLE March 06, 2017 11:27
--- NOTE | 2017-03-06 11:54 | CONS ---
Date/Time of Note Date/Time of Note DATE: 03/06/17 TIME: 11:52 Assessment/Plan Assessment/Plan Additional Assessment/Plan 1. Hypertension-now improved - off telem, con't med rx 2. Systolic murmur, assess etiology-mild MR/TRace TR by echo - stable by exam 3. Coronary artery disease, status post coronary artery bypass graft surgery, assess for acute coronary syndrome.NL EF by echo this admit 55-60 with LVDD 4. Dyslipidemia. 5. Diabetes mellitus- on meds 6. Possible congestive heart failure by medications- euvolemic by exam 7. Anemia, severe s/p transfusion Consultation Date/Type/Reason Admit Date/Time March 04, 2017 at 13:55 Initial Consult Date 03/04/17 Type of Consultation: Hematology Referring Provider: ANUSHA TATUM MD 24 HR Interval Summary Free Text/Dictation NO acute events - BP in good range - will adjust Rx as needed - medications reviewd. ROS: No fever, no chills, no nausea, no vomiting, no diarrhea/constipation No recent weight changes No chest pain, no PND, no orthopnea No dizziness, blurred vision No thirst, no heat or cold intolerance Exam/Review of Systems Vital Signs Vitals Vital Signs Date Time Temp Pulse Resp B/P Pulse Ox O2 Delivery O2 Flow Rate FiO2 03/06/17 08:10 98.0 80 18 140/72 99 03/05/17 09:35 Nasal Cannula 03/04/17 06:23 2.0 Intake and Output 03/05/17 03/05/17 03/06/17 15:00 23:00 07:00 Intake Total 500 ml 400 ml Balance 500 ml 400 ml Exam General: WN/WD/NAD, AOx 2-3 HEENT: Unicetric/atraumatic/EOMI (follows commands) NECK: JVD elevated, no thyromegaly Lymph: no lymphadenopathy HEART: regular with no S3, II/ systolic murmur at apex LUNGS: Coarse sounds ABD: soft, NT, ND, +BS : Intact Neuro: non focal SKIN: chronic changes EXT: trace edema Results Result Diagram: 03/06/17 0425 03/06/17 0425 Results 24 hrs Laboratory Tests Test 03/05/17 12:36 03/05/17 17:30 03/05/17 20:52 03/06/17 04:25 Bedside Glucose 262 H 111 133 White Blood Count 8.2 Red Blood Count 3.32 L Hemoglobin 10.1 L Hematocrit 31.2 L Mean Corpuscular Volume 94.0 Mean Corpuscular Hemoglobin 30.4 Mean Corpuscular Hemoglobin Concent 32.4 Red Cell Distribution Width 15.9 H Platelet Count 126 L Mean Platelet Volume 10.2 Neutrophils % 69.7 Lymphocytes % 20.7 Monocytes % 6.0 Eosinophils % 2.6 Basophils % 0.6 Nucleated Red Blood Cells % 0.0 Neutrophils # 5.8 Lymphocytes # 1.7 Monocytes # 0.5 Eosinophils # 0.2 Basophils # 0.1 Nucleated Red Blood Cells # 0.0 Sodium Level 139 Potassium Level 3.5 Chloride Level 106 Carbon Dioxide Level 23 Anion Gap 14 Blood Urea Nitrogen 23 H Creatinine 1.08 H Glucose Level 127 # Calcium Level 8.7 Test 03/06/17 08:34 Bedside Glucose 133 Medications Medications Current Medications Eye Lubricant (Akwa Oint) 1 applic BID BOTH EYES Last administered on 03/06/17 10:23; Admin Dose 1 APPLIC; Start 03/04/17 at 09:00 Aspirin (Halfprin) 81 mg DAILY PO Last administered on 03/06/17 09:26; Admin Dose 81 MG; Start 03/04/17 at 09:00 Carvedilol (Coreg) 12.5 mg BID PO Last administered on 03/05/17 20:43; Admin Dose 12.5 MG; Start 03/04/17 at 09:00 Clopidogrel Bisulfate (plaVIX) 75 mg DAILY PO Last administered on 03/05/17 10: 12; Admin Dose 75 MG; Start 03/04/17 at 09:00; Status Future Hold Ergocalciferol (Drisdol) 50,000 unit Q7D PO ; Start 03/10/17 at 09:00 Ferrous Sulfate (Ferrous Sulfate (Ec)) 325 mg BID PO Last administered on 09:26; Admin Dose 325 MG; Start 03/04/17 at 09:00 Fluticasone Propionate (Flonase 0.05% Nasal) 1 spray DAILY NASAL Last administered on 03/06/17 10:24; Admin Dose 1 SPRAY; Start 03/04/17 at 09:00 Gabapentin (Neurontin) 100 mg QPM PO Last administered on 03/05/17 20:43; Admin Dose 100 MG; Start 03/04/17 at 21:00 Insulin Glargine (Lantus) 15 unit QHS SC ; Start 03/04/17 at 21:00 Nifedipine (Procardia Xl) 60 mg QPM PO Last administered on 03/05/17 20:48; Admin Dose 60 MG; Start 03/04/17 at 21:00 Nitroglycerin (Nitroglycerin (Sl Tab) 0.4 Mg) 1 tab Q5M PRN SL CHEST PAIN; Start 03/03/17 at 23:30 Pantoprazole (Protonix Tab) 40 mg BID@06,18 PO Last administered on 03/06/17 05 :27; Admin Dose 40 MG; Start 03/04/17 at 06:00 Salmeterol Xinafoate/ Fluticasone (Advair 100/50 Diskus) 1 inh BID INH Last administered on 03/06/17 10:23; Admin Dose 1 INH; Start 03/04/17 at 09:00 Lisinopril (Zestril) 20 mg DAILY PO Last administered on 03/05/17 10:17; Admin Dose 20 MG; Start 03/04/17 at 09:00 Atorvastatin Calcium (Lipitor) 10 mg DAILY@21 PO Last administered on 03/05/17 20:42; Admin Dose 10 MG; Start 03/04/17 at 21:00 Diagnostic Test (Pha) (Accu-Chek) 1 ea 02 XX ; Start 03/04/17 at 02:00 Miscellaneous Information 1 ea NOTE XX ; Start 03/04/17 at 00:10 Glucose (Glutose) 15 gm Q15M PRN PO DECREASED GLUCOSE; Start 03/04/17 at 00:10 Glucose (Glutose) 22.5 gm Q15M PRN PO DECREASED GLUCOSE; Start 03/04/17 at 00:10 Dextrose (D50w Syringe) 25 ml Q15M PRN IV DECREASED GLUCOSE; Start 03/04/17 at 00:10 Dextrose (D50w Syringe) 50 ml Q15M PRN IV DECREASED GLUCOSE; Start 03/04/17 at 00:10 Glucagon (Glucagen) 1 mg Q15M PRN IM DECREASED GLUCOSE; Start 03/04/17 at 00:10 Glucose (Glutose) 15 gm Q15M PRN BUCCAL DECREASED GLUCOSE; Start 03/04/17 at 00: 10 Hydrochlorothiazide (Hydrochlorothiazide) 25 mg DAILY PO Last administered on 10:19; Admin Dose 25 MG; Start 03/04/17 at 09:00 Isosorbide Mononitrate (Imdur) 30 mg DAILY PO Last administered on 03/05/17 10: 11; Admin Dose 30 MG; Start 03/05/17 at 09:00 Nifedipine (Procardia Xl) 30 mg AM PO Last administered on 03/05/17 10:18; Admin Dose 30 MG; Start 03/05/17 at 09:00 Cyclosporine 1 drop 1 drop Q12 BOTH EYES Last administered on 03/06/17 09:25; Admin Dose 1 DROP; Start 03/05/17 at 22:18 Sodium Chloride (1/2 NS) 1,000 ml @ 50 mls/hr Q20H IV ; Start 03/06/17 at 11:30 KEENAN MOLINA MD March 06, 2017 11:53
--- NOTE | 2017-03-06 13:43 | PN ---
DATE: 03/06/2017 SUBJECTIVE: This 76-year-old lady was admitted with severe normochromic anemia with a hemoglobin 6. 9 with normal MCV and WBC. Her platelet count was slightly low at 123,000. Her anemia panel has be en unremarkable. The patient had EGD and colonoscopy which were also unremarkable. PHYSICAL EXAMINATION: GENERAL: Shows moderately built female in no distress. ENT: Normal. HEART: Normal. LUNGS: Normal. ABDOMEN: Soft, no masses or tenderness. EXTERNAL GENITALIA: Normal. EXTREMITIES: No edema. CENTRAL NERVOUS SYSTEM: No focal defects. LABORATORY DATA: Shows that after transfusion, her hemoglobin today is 10.1 with a WBC of 8200 and platelets of 126,000. Her albumin is 3.1 and globulin 4.1. IMPRESSION: 1. Severe normochromic anemia with a normal anemia panel. 2. Mild thrombocytopenia. 3. Hypergammaglobulinemia. PLAN: This patient certainly has severe anemia and had a transfusion a few weeks ago. She states s he never had transfusion before that. We certainly have to worry about myelodysplastic syndrome or bone marrow pathology. She probably will need a bone marrow. Also, we have to consider giving her Procrit. We will also get a serum protein electrophoresis. Dictated By: TU VALENTINE/DO Conf#: [id number] DID#: [id number]
[2017-03-06] MEDS: SOD CHLORIDE 0.45% 1,000 ML IV SCH (14:47)
[2017-03-06 19:52] VITALS: BP 137/62; RESP 18
[2017-03-06] MEDS: ATORVASTATIN 10 MG TAB PO SCH (21:43)
[2017-03-06] MEDS: GABAPENTIN 100 MG CAP PO SCH (21:43)
[2017-03-06] MEDS: INSULIN GLARGINE [LANtus] 3 ML PEN SC SCH (21:50)
[2017-03-06] MEDS: NIFEdipine (XL) 60 MG TAB PO SCH (21:53)
--- NOTE | 2017-03-06 22:51 | CONS ---
DATE OF ADMISSION: 03/04/2017 DATE OF CONSULTATION: CHIEF COMPLAINT: Anemia; however, she has no abdominal pain, no GI bleeding, no vomiting. OBJECTIVE: GENERAL: She appears to be alert and not in distress. VITAL SIGNS: Pulse is 68, blood pressure 120/62. CARDIOVASCULAR: Normal heart sounds. RESPIRATORY: Normal breath sounds. ABDOMEN: Showed unremarkable findings. DIAGNOSTICS: She has borderline anemia. Upper endoscopy showed evidence of a gastric ulcer with s tigmata of bleeding. Colonoscopy was unremarkable. The pathology of the gastric ulcer is pending. CLINICAL IMPRESSION: Anemia, partly secondary to gastrointestinal bleeding. Certainly she has anem ia due to anemia of chronic disease. PLAN: Continue proton pump inhibitor therapy. Wait for the pathology report. Dictated By: MARIUM OWEN MD NC/NTS Conf#: [id number] DID#: [id number] CC: ANUSHA TATUM MD; LYNN MORALES MD;*EndCC*
[2017-03-07] MEDS: ACCU-CHEK XX SCH (02:10)
[2017-03-07 05:02] LABS: ADD SCAN DIFF NO
[2017-03-07 05:08] LABS: BASOPHILS % 0.7 % (0.0-2.0); EOSINOPHILS # 0.2 10^3/ul (0.0-0.5); EOSINOPHILS % 3.6 % (0.0-7.0); HEMATOCRIT 32.1 % (37.0-47.0); HEMOGLOBIN 10.3 g/dl (12.0-16.0); LYMPHOCYTES # 1.4 10^3/ul (0.8-2.9); LYMPHOCYTES % 22.1 % (15.0-51.0); MEAN CORPUSCULAR HGB CONC 32.1 g/dl (32.0-37.0); MEAN CORPUSCULAR VOLUME 93.6 fl (82.0-101.0); MEAN PLATELET VOLUME 10.4 fl (7.4-10.4); MONOCYTE # 0.5 10^3/ul (0.3-0.9); MONOCYTES % 7.5 % (0.0-11.0); NEUTROPHIL # 4.1 10^3/ul (1.6-7.5); NEUTROPHILS % 65.8 % (39.0-77.0); PLATELET COUNT 116 10^3/UL (140-415); RED BLOOD COUNT 3.43 10^6/ul (4.20-5.40); RED CELL DISTRIBUTION WIDTH 15.3 % (11.5-14.5); WHITE BLOOD COUNT 6.2 10^3/ul (4.8-10.8)
[2017-03-07 05:23] LABS: CALCIUM 8.9 mg/dl (8.4-10.2); CREATININE 1.11 mg/dl (0.44-1.00); POTASSIUM 3.9 mmol/L (3.5-5.1)
[2017-03-07] MEDS: SOD CHLORIDE 0.45% 1,000 ML IV SCH (05:25)
[2017-03-07] MEDS: PANTOPRAZOLE (EC) 40 MG TAB PO SCH ×2 (06:07→18:15)
[2017-03-07] MEDS: FUROSEMIDE 20 MG TAB PO SCH ×2 (06:10→18:15)
[2017-03-07 08:02] VITALS: BP 153/70; RESP 18
[2017-03-07] MEDS: INSULIN ASPART [NOVOLOG] 3 ML PEN SC SCH ×7 (09:31→20:50)
[2017-03-07] MEDS: OCULAR LUBRICANT 3.5 GM OPH OINT BOTH EYES SCH ×2 (09:32→21:00)
[2017-03-07] MEDS: CYCLOSPORINE 0.05% OPH DROPERETTE BOTH EYES SCH ×2 (09:32→20:55)
[2017-03-07] MEDS: SALMETEROL/FLUTICASONE 100/50 INHA INH SCH ×2 (09:33→21:00)
[2017-03-07] MEDS: ASPIRIN (EC) 81 MG TAB PO SCH (09:33)
[2017-03-07] MEDS: FLUTICASONE 0.05% 16 GM NAS SPRAY NASAL SCH (09:33)
[2017-03-07] MEDS: NIFEdipine (XL) 30 MG TAB PO SCH (09:34)
[2017-03-07] MEDS: LISINOPRIL 20 MG TAB PO SCH (09:34)
[2017-03-07] MEDS: HYDROCHLOROTHIAZIDE 25 MG TAB PO SCH (09:35)
[2017-03-07] MEDS: FERROUS SULFATE (EC) 325 MG TAB PO SCH ×2 (09:35→20:56)
[2017-03-07] MEDS: ISOSORBIDE MONONITRATE(SR)30 MG TAB PO SCH (09:35)
--- NOTE | 2017-03-07 13:22 | PN ---
Date/Time of Note Date/Time of Note DATE: 03/07/17 TIME: 13:20 Assessment/Plan VTE Prophylaxis VTE Prophylaxis Intervention: other Lines/Catheters IV [facility] Peripheral IV Urinary Cath still in place: No Assessment/Plan Assessment/Plan - Elevated BUN/Cr- will do gentle hydration - Symptomatic anemia with mild thrombocytopenia, etiology unknown. - per Dr. Curtis is following in hematology oncology consultation. - per Dr. Simon in gastroenterology consultation. Status post EGD and colonoscopy. Follow-up pathology report. - Diffuse mild to moderate gastritis, superficial gastric ulcer and minimal reflux esophagitis per EGD, continue Protonix. - Coronary artery disease, status post coronary artery bypass graft. Continue aspirin and Plavix. - Hypertension. Continue Coreg and Procardia. - Dyslipidemia. Continue statin. - Diabetes. Continue Lantus and premeal insulin in addition to sliding scale. Further recommendations based on clinical course. Plan of care discussed with Dr. Claros. Subjective 24 Hr Interval Summary Free Text/Dictation resting in bed, seems comfortable, afebrile, dw staff. Eyes: no complaints ENT: no complaints Respiratory: no complaints Cardiovascular: no complaints Gastrointestinal: no complaints Genitourinary: no complaints Musculoskeletal: no complaints Skin: no complaints Neurologic: no complaints Endocrine: no complaints Lymphatic: no complaints Exam/Review of Systems Vital Signs Vitals Vital Signs Date Time Temp Pulse Resp B/P Pulse Ox O2 Delivery O2 Flow Rate FiO2 03/07/17 08:02 98.0 80 18 153/70 97 03/06/17 21:02 21 03/05/17 09:35 Nasal Cannula 03/04/17 06:23 2.0 Intake and Output 03/06/17 03/06/17 03/07/17 15:00 23:00 07:00 Intake Total 1720 ml 355 ml Output Total 400 ml 600 ml Balance 1320 ml -245 ml Exam Constitutional: alert Psych: nl mood/affect Eyes: EOMI ENMT: nl external ears & nose Neck: non-tender Respiratory: clear to auscultation Cardiovascular: nl pulses Gastrointestinal: non-tender, soft Musculoskeletal: nl extremities to inspection Extremities: normal pulses Neurological: nl mental status, nl speech, other Lymph: nontender Results Result Diagram: 03/07/17 0430 03/07/17 0430 Results 24 hrs Laboratory Tests Test 03/06/17 17:43 03/06/17 20:18 03/07/17 01:45 03/07/17 04:30 Bedside Glucose 152 212 149 White Blood Count 6.2 # Red Blood Count 3.43 L Hemoglobin 10.3 L Hematocrit 32.1 L Mean Corpuscular Volume 93.6 Mean Corpuscular Hemoglobin 30.0 Mean Corpuscular Hemoglobin Concent 32.1 Red Cell Distribution Width 15.3 H Platelet Count 116 L Mean Platelet Volume 10.4 Neutrophils % 65.8 Lymphocytes % 22.1 Monocytes % 7.5 Eosinophils % 3.6 Basophils % 0.7 Nucleated Red Blood Cells % 0.0 Neutrophils # 4.1 Lymphocytes # 1.4 Monocytes # 0.5 Eosinophils # 0.2 Basophils # 0.0 Nucleated Red Blood Cells # 0.0 Sodium Level 140 Potassium Level 3.9 Chloride Level 109 Carbon Dioxide Level 25 Anion Gap 10 Blood Urea Nitrogen 25 H Creatinine 1.11 H Glucose Level 159 Calcium Level 8.9 Test 03/07/17 08:14 03/07/17 12:19 Bedside Glucose 159 211 Medications Medications Current Medications Eye Lubricant (Akwa Oint) 1 applic BID BOTH EYES Last administered on 03/07/17 09:32; Admin Dose 1 APPLIC; Start 03/04/17 at 09:00 Aspirin (Halfprin) 81 mg DAILY PO Last administered on 03/07/17 09:33; Admin Dose 81 MG; Start 03/04/17 at 09:00 Carvedilol (Coreg) 12.5 mg BID PO Last administered on 03/07/17 09:34; Admin Dose 12.5 MG; Start 03/04/17 at 09:00 Clopidogrel Bisulfate (plaVIX) 75 mg DAILY PO Last administered on 03/05/17 10: 12; Admin Dose 75 MG; Start 03/04/17 at 09:00; Status Future Hold Ergocalciferol (Drisdol) 50,000 unit Q7D PO ; Start 03/10/17 at 09:00 Ferrous Sulfate (Ferrous Sulfate (Ec)) 325 mg BID PO Last administered on 09:35; Admin Dose 325 MG; Start 03/04/17 at 09:00 Fluticasone Propionate (Flonase 0.05% Nasal) 1 spray DAILY NASAL Last administered on 03/07/17 09:33; Admin Dose 1 SPRAY; Start 03/04/17 at 09:00 Gabapentin (Neurontin) 100 mg QPM PO Last administered on 03/06/17 21:43; Admin Dose 100 MG; Start 03/04/17 at 21:00 Insulin Glargine (Lantus) 15 unit QHS SC Last administered on 03/06/17 21:50; Admin Dose 15 UNIT; Start 03/04/17 at 21:00 Nifedipine (Procardia Xl) 60 mg QPM PO Last administered on 03/06/17 21:53; Admin Dose 60 MG; Start 03/04/17 at 21:00 Nitroglycerin (Nitroglycerin (Sl Tab) 0.4 Mg) 1 tab Q5M PRN SL CHEST PAIN; Start 03/03/17 at 23:30 Pantoprazole (Protonix Tab) 40 mg BID@06,18 PO Last administered on 03/07/17 06 :07; Admin Dose 40 MG; Start 03/04/17 at 06:00 Salmeterol Xinafoate/ Fluticasone (Advair 100/50 Diskus) 1 inh BID INH Last administered on 03/07/17 09:33; Admin Dose 1 INH; Start 03/04/17 at 09:00 Lisinopril (Zestril) 20 mg DAILY PO Last administered on 03/07/17 09:34; Admin Dose 20 MG; Start 03/04/17 at 09:00 Atorvastatin Calcium (Lipitor) 10 mg DAILY@21 PO Last administered on 03/06/17 21:43; Admin Dose 10 MG; Start 03/04/17 at 21:00 Diagnostic Test (Pha) (Accu-Chek) 1 ea 02 XX Last administered on 03/07/17 02: 10; Admin Dose 1 EA; Start 03/04/17 at 02:00 Miscellaneous Information 1 ea NOTE XX ; Start 03/04/17 at 00:10 Glucose (Glutose) 15 gm Q15M PRN PO DECREASED GLUCOSE; Start 03/04/17 at 00:10 Glucose (Glutose) 22.5 gm Q15M PRN PO DECREASED GLUCOSE; Start 03/04/17 at 00:10 Dextrose (D50w Syringe) 25 ml Q15M PRN IV DECREASED GLUCOSE; Start 03/04/17 at 00:10 Dextrose (D50w Syringe) 50 ml Q15M PRN IV DECREASED GLUCOSE; Start 03/04/17 at 00:10 Glucagon (Glucagen) 1 mg Q15M PRN IM DECREASED GLUCOSE; Start 03/04/17 at 00:10 Glucose (Glutose) 15 gm Q15M PRN BUCCAL DECREASED GLUCOSE; Start 03/04/17 at 00: 10 Hydrochlorothiazide (Hydrochlorothiazide) 25 mg DAILY PO Last administered on 09:35; Admin Dose 25 MG; Start 03/04/17 at 09:00 Isosorbide Mononitrate (Imdur) 30 mg DAILY PO Last administered on 03/07/17 09: 35; Admin Dose 30 MG; Start 03/05/17 at 09:00 Nifedipine (Procardia Xl) 30 mg AM PO Last administered on 03/07/17 09:34; Admin Dose 30 MG; Start 03/05/17 at 09:00 Cyclosporine 1 drop 1 drop Q12 BOTH EYES Last administered on 03/07/17 09:32; Admin Dose 1 DROP; Start 03/05/17 at 22:18 Sodium Chloride (1/2 NS) 1,000 ml @ 50 mls/hr Q20H IV Last administered on 03/07 05:25; Admin Dose 50 MLS/HR; Start 03/06/17 at 11:30 AZALEA NICOLE March 07, 2017 13:22
--- NOTE | 2017-03-07 13:30 | CONS ---
Date/Time of Note Date/Time of Note DATE: 03/07/17 TIME: 13:29 Assessment/Plan Assessment/Plan Additional Assessment/Plan 1. Hypertension-now improved - off telem, con't med rx - WILL ALLOW FOR NOW 2. Systolic murmur, assess etiology-mild MR/TRace TR by echo - stable by exam - satble 3. Coronary artery disease, status post coronary artery bypass graft surgery, assess for acute coronary syndrome.NL EF by echo this admit 55-60 with LVDD 4. Dyslipidemia. 5. Diabetes mellitus- on meds 6. Possible congestive heart failure by medications- euvolemic by exam 7. Anemia, severe s/p transfusion - oncology team follows Consultation Date/Type/Reason Admit Date/Time March 04, 2017 at 13:55 Initial Consult Date 03/04/17 Type of Consultation: Hematology Referring Provider: ANUSHA TATUM MD 24 HR Interval Summary Free Text/Dictation NO acute events -stable - no CP noted,. OFF Tele ROS: No fever, no chills, no nausea, no vomiting, no diarrhea/constipation No recent weight changes No chest pain, no PND, no orthopnea No dizziness, blurred vision No thirst, no heat or cold intolerance Exam/Review of Systems Vital Signs Vitals Vital Signs Date Time Temp Pulse Resp B/P Pulse Ox O2 Delivery O2 Flow Rate FiO2 03/07/17 08:02 98.0 80 18 153/70 97 03/06/17 21:02 21 03/05/17 09:35 Nasal Cannula 03/04/17 06:23 2.0 Intake and Output 03/06/17 03/06/17 03/07/17 15:00 23:00 07:00 Intake Total 1720 ml 355 ml Output Total 400 ml 600 ml Balance 1320 ml -245 ml Exam General: WN/WD/NAD, AOx 3 HEENT: Unicetric/atraumatic/EOMI (follow commands) NECK: JVD elevated, no thyromegaly Lymph: no lymphadenopathy HEART: regular with no S3, II/ systolic murmur at apex LUNGS: Coarse sounds ABD: soft, NT, ND, +BS : Intact Neuro: non focal SKIN: chronic changes EXT: trace edema Results Result Diagram: 03/07/17 0430 03/07/17 0430 Results 24 hrs Laboratory Tests Test 03/06/17 17:43 03/06/17 20:18 03/07/17 01:45 03/07/17 04:30 Bedside Glucose 152 212 149 White Blood Count 6.2 # Red Blood Count 3.43 L Hemoglobin 10.3 L Hematocrit 32.1 L Mean Corpuscular Volume 93.6 Mean Corpuscular Hemoglobin 30.0 Mean Corpuscular Hemoglobin Concent 32.1 Red Cell Distribution Width 15.3 H Platelet Count 116 L Mean Platelet Volume 10.4 Neutrophils % 65.8 Lymphocytes % 22.1 Monocytes % 7.5 Eosinophils % 3.6 Basophils % 0.7 Nucleated Red Blood Cells % 0.0 Neutrophils # 4.1 Lymphocytes # 1.4 Monocytes # 0.5 Eosinophils # 0.2 Basophils # 0.0 Nucleated Red Blood Cells # 0.0 Sodium Level 140 Potassium Level 3.9 Chloride Level 109 Carbon Dioxide Level 25 Anion Gap 10 Blood Urea Nitrogen 25 H Creatinine 1.11 H Glucose Level 159 Calcium Level 8.9 Test 03/07/17 08:14 03/07/17 12:19 Bedside Glucose 159 211 Medications Medications Current Medications Eye Lubricant (Akwa Oint) 1 applic BID BOTH EYES Last administered on 03/07/17 09:32; Admin Dose 1 APPLIC; Start 03/04/17 at 09:00 Aspirin (Halfprin) 81 mg DAILY PO Last administered on 03/07/17 09:33; Admin Dose 81 MG; Start 03/04/17 at 09:00 Carvedilol (Coreg) 12.5 mg BID PO Last administered on 03/07/17 09:34; Admin Dose 12.5 MG; Start 03/04/17 at 09:00 Clopidogrel Bisulfate (plaVIX) 75 mg DAILY PO Last administered on 03/05/17 10: 12; Admin Dose 75 MG; Start 03/04/17 at 09:00; Status Future Hold Ergocalciferol (Drisdol) 50,000 unit Q7D PO ; Start 03/10/17 at 09:00 Ferrous Sulfate (Ferrous Sulfate (Ec)) 325 mg BID PO Last administered on 09:35; Admin Dose 325 MG; Start 03/04/17 at 09:00 Fluticasone Propionate (Flonase 0.05% Nasal) 1 spray DAILY NASAL Last administered on 03/07/17 09:33; Admin Dose 1 SPRAY; Start 03/04/17 at 09:00 Gabapentin (Neurontin) 100 mg QPM PO Last administered on 03/06/17 21:43; Admin Dose 100 MG; Start 03/04/17 at 21:00 Insulin Glargine (Lantus) 15 unit QHS SC Last administered on 03/06/17 21:50; Admin Dose 15 UNIT; Start 03/04/17 at 21:00 Nifedipine (Procardia Xl) 60 mg QPM PO Last administered on 03/06/17 21:53; Admin Dose 60 MG; Start 03/04/17 at 21:00 Nitroglycerin (Nitroglycerin (Sl Tab) 0.4 Mg) 1 tab Q5M PRN SL CHEST PAIN; Start 03/03/17 at 23:30 Pantoprazole (Protonix Tab) 40 mg BID@06,18 PO Last administered on 03/07/17 06 :07; Admin Dose 40 MG; Start 03/04/17 at 06:00 Salmeterol Xinafoate/ Fluticasone (Advair 100/50 Diskus) 1 inh BID INH Last administered on 03/07/17 09:33; Admin Dose 1 INH; Start 03/04/17 at 09:00 Lisinopril (Zestril) 20 mg DAILY PO Last administered on 03/07/17 09:34; Admin Dose 20 MG; Start 03/04/17 at 09:00 Atorvastatin Calcium (Lipitor) 10 mg DAILY@21 PO Last administered on 03/06/17 21:43; Admin Dose 10 MG; Start 03/04/17 at 21:00 Diagnostic Test (Pha) (Accu-Chek) 1 ea 02 XX Last administered on 03/07/17 02: 10; Admin Dose 1 EA; Start 03/04/17 at 02:00 Miscellaneous Information 1 ea NOTE XX ; Start 03/04/17 at 00:10 Glucose (Glutose) 15 gm Q15M PRN PO DECREASED GLUCOSE; Start 03/04/17 at 00:10 Glucose (Glutose) 22.5 gm Q15M PRN PO DECREASED GLUCOSE; Start 03/04/17 at 00:10 Dextrose (D50w Syringe) 25 ml Q15M PRN IV DECREASED GLUCOSE; Start 03/04/17 at 00:10 Dextrose (D50w Syringe) 50 ml Q15M PRN IV DECREASED GLUCOSE; Start 03/04/17 at 00:10 Glucagon (Glucagen) 1 mg Q15M PRN IM DECREASED GLUCOSE; Start 03/04/17 at 00:10 Glucose (Glutose) 15 gm Q15M PRN BUCCAL DECREASED GLUCOSE; Start 03/04/17 at 00: 10 Hydrochlorothiazide (Hydrochlorothiazide) 25 mg DAILY PO Last administered on 09:35; Admin Dose 25 MG; Start 03/04/17 at 09:00 Isosorbide Mononitrate (Imdur) 30 mg DAILY PO Last administered on 03/07/17 09: 35; Admin Dose 30 MG; Start 03/05/17 at 09:00 Nifedipine (Procardia Xl) 30 mg AM PO Last administered on 03/07/17 09:34; Admin Dose 30 MG; Start 03/05/17 at 09:00 Cyclosporine 1 drop 1 drop Q12 BOTH EYES Last administered on 03/07/17 09:32; Admin Dose 1 DROP; Start 03/05/17 at 22:18 Sodium Chloride (1/2 NS) 1,000 ml @ 50 mls/hr Q20H IV Last administered on 03/07 05:25; Admin Dose 50 MLS/HR; Start 03/06/17 at 11:30 KEENAN MOLINA MD March 07, 2017 13:30
[2017-03-07 20:42] VITALS: BP 147/67; RESP 74
[2017-03-07] MEDS: INSULIN GLARGINE [LANtus] 3 ML PEN SC SCH (20:49)
[2017-03-07] MEDS: GABAPENTIN 100 MG CAP PO SCH (20:55)
[2017-03-07] MEDS: NIFEdipine (XL) 60 MG TAB PO SCH (20:55)
[2017-03-07] MEDS: ATORVASTATIN 10 MG TAB PO SCH (20:56)
[2017-03-08] MEDS: SOD CHLORIDE 0.45% 1,000 ML IV SCH ×2 (01:30→22:15)
[2017-03-08] MEDS: ACCU-CHEK XX SCH (02:29)
[2017-03-08] MEDS: FUROSEMIDE 20 MG TAB PO SCH ×2 (06:00→18:35)
[2017-03-08] MEDS: PANTOPRAZOLE (EC) 40 MG TAB PO SCH ×2 (06:22→18:35)
[2017-03-08 07:27] LABS: ADD SCAN DIFF NO
[2017-03-08 07:34] LABS: BASOPHIL # 0.1 10^3/ul (0.0-0.1); BASOPHILS % 0.7 % (0.0-2.0); EOSINOPHILS # 0.3 10^3/ul (0.0-0.5); EOSINOPHILS % 4.2 % (0.0-7.0); HEMOGLOBIN 10.5 g/dl (12.0-16.0); LYMPHOCYTES # 1.5 10^3/ul (0.8-2.9); LYMPHOCYTES % 21.3 % (15.0-51.0); MEAN CORPUSCULAR HEMOGLOBIN 30.7 pg (29.0-33.0); MEAN CORPUSCULAR HGB CONC 32.8 g/dl (32.0-37.0); MEAN CORPUSCULAR VOLUME 93.6 fl (82.0-101.0); MEAN PLATELET VOLUME 10.6 fl (7.4-10.4); MONOCYTE # 0.5 10^3/ul (0.3-0.9); MONOCYTES % 7.5 % (0.0-11.0); NEUTROPHIL # 4.7 10^3/ul (1.6-7.5); PLATELET COUNT 124 10^3/UL (140-415); RED BLOOD COUNT 3.42 10^6/ul (4.20-5.40); RED CELL DISTRIBUTION WIDTH 14.7 % (11.5-14.5); WHITE BLOOD COUNT 7.1 10^3/ul (4.8-10.8)
[2017-03-08 07:50] LABS: POTASSIUM 3.5 mmol/L (3.5-5.1)
[2017-03-08 07:52] LABS: CREATININE 1.12 mg/dl (0.44-1.00)
[2017-03-08 07:53] LABS: CALCIUM 9.2 mg/dl (8.4-10.2)
[2017-03-08 08:29] VITALS: BP 104/55; RESP 18
[2017-03-08] MEDS: OCULAR LUBRICANT 3.5 GM OPH OINT BOTH EYES SCH ×2 (09:00→21:00)
[2017-03-08] MEDS: NIFEdipine (XL) 30 MG TAB PO SCH (09:00)
[2017-03-08] MEDS: LISINOPRIL 20 MG TAB PO SCH (09:00)
[2017-03-08] MEDS: HYDROCHLOROTHIAZIDE 25 MG TAB PO SCH (09:00)
[2017-03-08] MEDS: ISOSORBIDE MONONITRATE(SR)30 MG TAB PO SCH (09:00)
[2017-03-08] MEDS: INSULIN ASPART [NOVOLOG] 3 ML PEN SC SCH ×7 (09:16→20:50)
[2017-03-08] MEDS: CYCLOSPORINE 0.05% OPH DROPERETTE BOTH EYES SCH ×2 (09:16→20:50)
[2017-03-08] MEDS: FLUTICASONE 0.05% 16 GM NAS SPRAY NASAL SCH (09:17)
[2017-03-08] MEDS: SALMETEROL/FLUTICASONE 100/50 INHA INH SCH ×2 (09:17→20:47)
[2017-03-08] MEDS: ASPIRIN (EC) 81 MG TAB PO SCH (09:20)
[2017-03-08] MEDS: FERROUS SULFATE (EC) 325 MG TAB PO SCH ×2 (09:20→20:47)
[2017-03-08 16:29] LABS: HOMOCYSTEINE - CARDIOVASCULAR 15.5 umol/L (<10.4)
--- NOTE | 2017-03-08 16:45 | PN ---
Date/Time of Note Date/Time of Note DATE: 03/08/17 TIME: 16:43 Assessment/Plan VTE Prophylaxis VTE Prophylaxis Intervention: SCD's Lines/Catheters IV Catheter Type (from [facility]): Peripheral IV Urinary Cath still in place: No Assessment/Plan Chief Complaint/Hosp Course - Symptomatic anemia with mild thrombocytopenia, etiology unknown. Dr. Curtis is following in hematology oncology consultation. Dr. Simon is following in gastroenterology consultation. Status post EGD and colonoscopy. Follow-up pathology report. - Diffuse mild to moderate gastritis, superficial gastric ulcer and minimal reflux esophagitis per EGD, continue Protonix. - Coronary artery disease, status post coronary artery bypass graft. Continue aspirin and Plavix. - Hypertension. Continue Coreg and Procardia. - Dyslipidemia. Continue statin. - Diabetes. Continue Lantus and premeal insulin in addition to sliding scale. Further recommendations based on clinical course. Plan of care discussed with Dr. Claros. Problems: Subjective 24 Hr Interval Summary Free Text/Dictation Patient's complains of generalized weakness, pending PT evaluation, no acute events overnight. Exam/Review of Systems Vital Signs Vitals Vital Signs Date Time Temp Pulse Resp B/P Pulse Ox O2 Delivery O2 Flow Rate FiO2 03/08/17 08:29 98.2 65 18 104/55 92 03/06/17 21:02 21 03/05/17 09:35 Nasal Cannula Intake and Output 03/07/17 03/07/17 03/08/17 15:00 23:00 07:00 Intake Total 1250 ml 975 ml Output Total 1350 ml Balance 1250 ml -375 ml Exam Constitutional: alert, oriented Psych: no complaints Head: atraumatic, normocephalic Eyes: nl conjunctiva ENMT: nl external ears & nose Neck: non-tender, supple Respiratory: clear to auscultation, normal air movement Cardiovascular: nl pulses, regular rate and rhythm Gastrointestinal: non-tender, soft Musculoskeletal: nl extremities to inspection Extremities: normal pulses 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5 Monocytes # 0.5 Eosinophils # 0.3 Basophils # 0.1 Nucleated Red Blood Cells # 0.0 Sodium Level 139 Potassium Level 3.5 Chloride Level 103 Carbon Dioxide Level 26 Anion Gap 14 Blood Urea Nitrogen 35 H Creatinine 1.12 H Glucose Level 181 Calcium Level 9.2 Test 03/08/17 07:54 03/08/17 08:29 03/08/17 12:35 Lab Scanned Report REFERENCE LAB Bedside Glucose 179 215 Medications Medications Current Medications Eye Lubricant (Akwa Oint) 1 applic BID BOTH EYES Last administered on 03/07/17 21:00; Admin Dose 1 APPLIC; Start 03/04/17 at 09:00 Aspirin (Halfprin) 81 mg DAILY PO Last administered on 03/08/17 09:20; Admin Dose 81 MG; Start 03/04/17 at 09:00 Carvedilol (Coreg) 12.5 mg BID PO Last administered on 03/07/17 20:55; Admin Dose 12.5 MG; Start 03/04/17 at 09:00 Clopidogrel Bisulfate (plaVIX) 75 mg DAILY PO Last administered on 03/05/17 10: 12; Admin Dose 75 MG; Start 03/04/17 at 09:00; Status Future Hold Ergocalciferol (Drisdol) 50,000 unit Q7D PO ; Start 03/10/17 at 09:00 Ferrous Sulfate (Ferrous Sulfate (Ec)) 325 mg BID PO Last administered on 09:20; Admin Dose 325 MG; Start 03/04/17 at 09:00 Fluticasone Propionate (Flonase 0.05% Nasal) 1 spray DAILY NASAL Last administered on 03/08/17 09:17; Admin Dose 1 SPRAY; Start 03/04/17 at 09:00 Gabapentin (Neurontin) 100 mg QPM PO Last administered on 03/07/17 20:55; Admin Dose 100 MG; Start 03/04/17 at 21:00 Insulin Glargine (Lantus) 15 unit QHS SC Last administered on 03/07/17 20:49; Admin Dose 15 UNIT; Start 03/04/17 at 21:00 Nifedipine (Procardia Xl) 60 mg QPM PO Last administered on 03/07/17 20:55; Admin Dose 60 MG; Start 03/04/17 at 21:00 Nitroglycerin (Nitroglycerin (Sl Tab) 0.4 Mg) 1 tab Q5M PRN SL CHEST PAIN; Start 03/03/17 at 23:30 Pantoprazole (Protonix Tab) 40 mg BID@06,18 PO Last administered on 03/08/17 06 :22; Admin Dose 40 MG; Start 03/04/17 at 06:00 Salmeterol Xinafoate/ Fluticasone (Advair 100/50 Diskus) 1 inh BID INH Last administered on 03/08/17 09:17; Admin Dose 1 INH; Start 03/04/17 at 09:00 Lisinopril (Zestril) 20 mg DAILY PO Last administered on 03/07/17 09:34; Admin Dose 20 MG; Start 03/04/17 at 09:00 Atorvastatin Calcium (Lipitor) 10 mg DAILY@21 PO Last administered on 03/07/17 20:56; Admin Dose 10 MG; Start 03/04/17 at 21:00 Diagnostic Test (Pha) (Accu-Chek) 1 ea 02 XX Last administered on 03/08/17 02: 29; Admin Dose 1 EA; Start 03/04/17 at 02:00 Miscellaneous Information 1 ea NOTE XX ; Start 03/04/17 at 00:10 Glucose (Glutose) 15 gm Q15M PRN PO DECREASED GLUCOSE; Start 03/04/17 at 00:10 Glucose (Glutose) 22.5 gm Q15M PRN PO DECREASED GLUCOSE; Start 03/04/17 at 00:10 Dextrose (D50w Syringe) 25 ml Q15M PRN IV DECREASED GLUCOSE; Start 03/04/17 at 00:10 Dextrose (D50w Syringe) 50 ml Q15M PRN IV DECREASED GLUCOSE; Start 03/04/17 at 00:10 Glucagon (Glucagen) 1 mg Q15M PRN IM DECREASED GLUCOSE; Start 03/04/17 at 00:10 Glucose (Glutose) 15 gm Q15M PRN BUCCAL DECREASED GLUCOSE; Start 03/04/17 at 00: 10 Hydrochlorothiazide (Hydrochlorothiazide) 25 mg DAILY PO Last administered on 09:35; Admin Dose 25 MG; Start 03/04/17 at 09:00 Isosorbide Mononitrate (Imdur) 30 mg DAILY PO Last administered on 03/07/17 09: 35; Admin Dose 30 MG; Start 03/05/17 at 09:00 Nifedipine (Procardia Xl) 30 mg AM PO Last administered on 03/07/17 09:34; Admin Dose 30 MG; Start 03/05/17 at 09:00 Cyclosporine 1 drop 1 drop Q12 BOTH EYES Last administered on 03/08/17 09:16; Admin Dose 1 DROP; Start 03/05/17 at 22:18 Sodium Chloride (1/2 NS) 1,000 ml @ 50 mls/hr Q20H IV Last administered on 03/08 01:30; Admin Dose 50 MLS/HR; Start 03/06/17 at 11:30 DONTE OSORIO March 08, 2017 16:45
--- NOTE | 2017-03-08 16:55 | CONS ---
Date/Time of Note Date/Time of Note DATE: 03/08/17 TIME: 16:53 Assessment/Plan Assessment/Plan Chief Complaint/Hosp Course The patient is a 76-year-old female with severe normocytic anemia with Hgb 6.9 and slightly elevated RDW 15.3, and mild thrombocytopenia without evidence of acute bleed - s/p 2 units pRBCs 03/04/17, now Hgb stable at 10 - Peripheral smear reviewed by pathologist and showed appropriate response to anemia with polychromatophilic macrocytes, no significant red cell changes, normochromic/normocytic, no dysplastic cells, no blasts, no nucleated RBCs noted - Iron panel Fe 72, TIBC low at 215, %sat 33, ferritin 425 consistent with anemia of chronic inflammation; LDH WNL, retic appropriately elevated at 150K, B12/folate, TSH WNL; pending haptoglobin, methylmalonic acid, homocysteine - s/p EGD 03/05/17 that showed diffuse mild to moderate gastritis, a superficial ulcer in the gastric fundus noted. Minimal reflux esophagitis. On PPI therapy. No evidence of malignancy on path report. - s/p colonoscopy 03/05/17 that showed diffuse mild diverticulosis, moderate degree of internal and external hemorrhoids. Nodular fold in the rectum. - Consider bone marrow biopsy to rule out MDS or bone marrow pathology - discussed with patient who will think about it before deciding. - consider procrit, will check epo level - will check SPEP (pending) # Thrombocytopenia, mild, resolved on re-check. HIV/hep panel negative, DIC panel not consistent with DIC. # Elevated D-dimer, may be related to underlying inflammatory state. Low threshold to check LE dopplers or CTA if symptoms of SOB, LE edema/pain,etc. Problems: Consultation Date/Type/Reason Admit Date/Time March 04, 2017 at 13:55 Initial Consult Date 03/04/17 Type of Consultation: Hematology Referring Provider: ANUSHA TATUM MD 24 HR Interval Summary Free Text/Dictation Patient doing well, no complaints. No bleeding. 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 Results Result Diagram: 03/08/1737 03/08/17 0637 Results 24 hrs Laboratory Tests Test 03/07/17 17:31 03/07/17 20:46 03/08/17 01:21 03/08/17 06:37 Bedside Glucose 127 190 168 White Blood Count 7.1 Red Blood Count 3.42 L Hemoglobin 10.5 L Hematocrit 32.0 L Mean Corpuscular Volume 93.6 Mean Corpuscular Hemoglobin 30.7 Mean Corpuscular Hemoglobin Concent 32.8 Red Cell Distribution Width 14.7 H Platelet Count 124 L Mean Platelet Volume 10.6 H Neutrophils % 66.0 Lymphocytes % 21.3 Monocytes % 7.5 Eosinophils % 4.2 Basophils % 0.7 Nucleated Red Blood Cells % 0.0 Neutrophils # 4.7 Lymphocytes # 1.5 Monocytes # 0.5 Eosinophils # 0.3 Basophils # 0.1 Nucleated Red Blood Cells # 0.0 Sodium Level 139 Potassium Level 3.5 Chloride Level 103 Carbon Dioxide Level 26 Anion Gap 14 Blood Urea Nitrogen 35 H Creatinine 1.12 H Glucose Level 181 Calcium Level 9.2 Test 03/08/17 07:54 03/08/17 08:29 03/08/17 12:35 Lab Scanned Report REFERENCE LAB Bedside Glucose 179 215 Medications Medications Current Medications Eye Lubricant (Akwa Oint) 1 applic BID BOTH EYES Last administered on 03/07/17 21:00; Admin Dose 1 APPLIC; Start 03/04/17 at 09:00 Aspirin (Halfprin) 81 mg DAILY PO Last administered on 03/08/17 09:20; Admin Dose 81 MG; Start 03/04/17 at 09:00 Carvedilol (Coreg) 12.5 mg BID PO Last administered on 03/07/17 20:55; Admin Dose 12.5 MG; Start 03/04/17 at 09:00 Clopidogrel Bisulfate (plaVIX) 75 mg DAILY PO Last administered on 03/05/17 10: 12; Admin Dose 75 MG; Start 03/04/17 at 09:00; Status Future Hold Ergocalciferol (Drisdol) 50,000 unit Q7D PO ; Start 03/10/17 at 09:00 Ferrous Sulfate (Ferrous Sulfate (Ec)) 325 mg BID PO Last administered on 09:20; Admin Dose 325 MG; Start 03/04/17 at 09:00 Fluticasone Propionate (Flonase 0.05% Nasal) 1 spray DAILY NASAL Last administered on 03/08/17 09:17; Admin Dose 1 SPRAY; Start 03/04/17 at 09:00 Gabapentin (Neurontin) 100 mg QPM PO Last administered on 03/07/17 20:55; Admin Dose 100 MG; Start 03/04/17 at 21:00 Insulin Glargine (Lantus) 15 unit QHS SC Last administered on 03/07/17 20:49; Admin Dose 15 UNIT; Start 03/04/17 at 21:00 Nifedipine (Procardia Xl) 60 mg QPM PO Last administered on 03/07/17 20:55; Admin Dose 60 MG; Start 03/04/17 at 21:00 Nitroglycerin (Nitroglycerin (Sl Tab) 0.4 Mg) 1 tab Q5M PRN SL CHEST PAIN; Start 03/03/17 at 23:30 Pantoprazole (Protonix Tab) 40 mg BID@06,18 PO Last administered on 03/08/17 06 :22; Admin Dose 40 MG; Start 03/04/17 at 06:00 Salmeterol Xinafoate/ Fluticasone (Advair 100/50 Diskus) 1 inh BID INH Last administered on 03/08/17 09:17; Admin Dose 1 INH; Start 03/04/17 at 09:00 Lisinopril (Zestril) 20 mg DAILY PO Last administered on 03/07/17 09:34; Admin Dose 20 MG; Start 03/04/17 at 09:00 Atorvastatin Calcium (Lipitor) 10 mg DAILY@21 PO Last administered on 03/07/17 20:56; Admin Dose 10 MG; Start 03/04/17 at 21:00 Diagnostic Test (Pha) (Accu-Chek) 1 ea 02 XX Last administered on 03/08/17 02: 29; Admin Dose 1 EA; Start 03/04/17 at 02:00 Miscellaneous Information 1 ea NOTE XX ; Start 03/04/17 at 00:10 Glucose (Glutose) 15 gm Q15M PRN PO DECREASED GLUCOSE; Start 03/04/17 at 00:10 Glucose (Glutose) 22.5 gm Q15M PRN PO DECREASED GLUCOSE; Start 03/04/17 at 00:10 Dextrose (D50w Syringe) 25 ml Q15M PRN IV DECREASED GLUCOSE; Start 03/04/17 at 00:10 Dextrose (D50w Syringe) 50 ml Q15M PRN IV DECREASED GLUCOSE; Start 03/04/17 at 00:10 Glucagon (Glucagen) 1 mg Q15M PRN IM DECREASED GLUCOSE; Start 03/04/17 at 00:10 Glucose (Glutose) 15 gm Q15M PRN BUCCAL DECREASED GLUCOSE; Start 03/04/17 at 00: 10 Hydrochlorothiazide (Hydrochlorothiazide) 25 mg DAILY PO Last administered on 09:35; Admin Dose 25 MG; Start 03/04/17 at 09:00 Isosorbide Mononitrate (Imdur) 30 mg DAILY PO Last administered on 03/07/17 09: 35; Admin Dose 30 MG; Start 03/05/17 at 09:00 Nifedipine (Procardia Xl) 30 mg AM PO Last administered on 03/07/17 09:34; Admin Dose 30 MG; Start 03/05/17 at 09:00 Cyclosporine 1 drop 1 drop Q12 BOTH EYES Last administered on 03/08/17 09:16; Admin Dose 1 DROP; Start 03/05/17 at 22:18 Sodium Chloride (1/2 NS) 1,000 ml @ 50 mls/hr Q20H IV Last administered on 03/08 01:30; Admin Dose 50 MLS/HR; Start 03/06/17 at 11:30 MIKE SEGURA MD March 08, 2017 16:55
[2017-03-08 17:10] LABS: PROTEIN, TOTAL 6.7 g/dL (6.1-8.1)
--- NOTE | 2017-03-08 17:41 | CONS ---
Date/Time of Note Date/Time of Note DATE: 03/08/17 TIME: 17:36 Assessment/Plan Assessment/Plan Chief Complaint/Hosp Course IMPRESSION: 1. Hypertension-now improved/reasonable control 2. Systolic murmur, assess etiology-mild MR/TRace TR by echo 3. Coronary artery disease, status post coronary artery bypass graft surgery, assess for acute coronary syndrome.NL EF by echo this admit 55-60 with LVDD 4. Dyslipidemia. 5. Diabetes mellitus. 6. Possible congestive heart failure by medications. 7. Anemia, severe s/p transfusion 8. GIB-with gastric ulcer and diverticulosis by endoscopy Recc: -For EGD/colonscopy today -Contineu asa as tolerated only -plavix held at this time given severe anemia requiring transfusion -Continue current CCB/imdur/coreg/zestril/HCTZ -Continue low dose statin Problems: Consultation Date/Type/Reason Admit Date/Time March 04, 2017 at 13:55 Initial Consult Date 03/04/17 Type of Consultation: Cardiology Reason for Consultation HTN Referring Provider: ANUSHA TATUM MD Exam/Review of Systems Vital Signs Vitals Vital Signs Date Time Temp Pulse Resp B/P Pulse Ox O2 Delivery O2 Flow Rate FiO2 03/08/17 08:29 98.2 65 18 104/55 92 03/06/17 21:02 21 03/05/17 09:35 Nasal Cannula Intake and Output 03/07/17 03/07/17 03/08/17 15:00 23:00 07:00 Intake Total 1250 ml 975 ml Output Total 1350 ml Balance 1250 ml -375 ml Exam Review of Systems: CONSTITUTIONAL: No fevers, chills. PULMONARY: No sob CARDIOVASCULAR: No chest pain/palpitations GASTROINTESTINAL: No nausea/vomiting. GENITOURINARY: No hematuria/dysuria. MUSCULOSKELETAL: No myagias/arthalgias. PSYCHIATRIC: The patient denies depression. NEUROLOGIC: No weakness Constitutional: alert Psych: no complaints Head: normocephalic ENMT: mucosa pink and moist Neck: jvd, supple Respiratory: diminished breath sounds Cardiovascular: regular rate and rhythm Gastrointestinal: non-tender, soft Musculoskeletal: muscle tone (normsl) Extremities: edema (none) Neurological: lethargic Results Result Diagram: 03/08/17 0637 03/08/17 0637 Results 24 hrs Laboratory Tests Test 03/07/17 20:46 03/08/17 01:21 03/08/17 06:37 03/08/17 07:54 Bedside Glucose 190 168 White Blood Count 7.1 Red Blood Count 3.42 L Hemoglobin 10.5 L Hematocrit 32.0 L Mean Corpuscular Volume 93.6 Mean Corpuscular Hemoglobin 30.7 Mean Corpuscular Hemoglobin Concent 32.8 Red Cell Distribution Width 14.7 H Platelet Count 124 L Mean Platelet Volume 10.6 H Neutrophils % 66.0 Lymphocytes % 21.3 Monocytes % 7.5 Eosinophils % 4.2 Basophils % 0.7 Nucleated Red Blood Cells % 0.0 Neutrophils # 4.7 Lymphocytes # 1.5 Monocytes # 0.5 Eosinophils # 0.3 Basophils # 0.1 Nucleated Red Blood Cells # 0.0 Sodium Level 139 Potassium Level 3.5 Chloride Level 103 Carbon Dioxide Level 26 Anion Gap 14 Blood Urea Nitrogen 35 H Creatinine 1.12 H Glucose Level 181 Calcium Level 9.2 Lab Scanned Report REFERENCE LAB Test 03/08/17 08:29 03/08/17 12:35 Bedside Glucose 179 215 Medications Medications Current Medications Eye Lubricant (Akwa Oint) 1 applic BID BOTH EYES Last administered on 03/07/17 21:00; Admin Dose 1 APPLIC; Start 03/04/17 at 09:00 Aspirin (Halfprin) 81 mg DAILY PO Last administered on 03/08/17 09:20; Admin Dose 81 MG; Start 03/04/17 at 09:00 Carvedilol (Coreg) 12.5 mg BID PO Last administered on 03/07/17 20:55; Admin Dose 12.5 MG; Start 03/04/17 at 09:00 Clopidogrel Bisulfate (plaVIX) 75 mg DAILY PO Last administered on 03/05/17 10: 12; Admin Dose 75 MG; Start 03/04/17 at 09:00; Status Future Hold Ergocalciferol (Drisdol) 50,000 unit Q7D PO ; Start 03/10/17 at 09:00 Ferrous Sulfate (Ferrous Sulfate (Ec)) 325 mg BID PO Last administered on 09:20; Admin Dose 325 MG; Start 03/04/17 at 09:00 Fluticasone Propionate (Flonase 0.05% Nasal) 1 spray DAILY NASAL Last administered on 03/08/17 09:17; Admin Dose 1 SPRAY; Start 03/04/17 at 09:00 Gabapentin (Neurontin) 100 mg QPM PO Last administered on 03/07/17 20:55; Admin Dose 100 MG; Start 03/04/17 at 21:00 Insulin Glargine (Lantus) 15 unit QHS SC Last administered on 03/07/17 20:49; Admin Dose 15 UNIT; Start 03/04/17 at 21:00 Nifedipine (Procardia Xl) 60 mg QPM PO Last administered on 03/07/17 20:55; Admin Dose 60 MG; Start 03/04/17 at 21:00 Nitroglycerin (Nitroglycerin (Sl Tab) 0.4 Mg) 1 tab Q5M PRN SL CHEST PAIN; Start 03/03/17 at 23:30 Pantoprazole (Protonix Tab) 40 mg BID@06,18 PO Last administered on 03/08/17 06 :22; Admin Dose 40 MG; Start 03/04/17 at 06:00 Salmeterol Xinafoate/ Fluticasone (Advair 100/50 Diskus) 1 inh BID INH Last administered on 03/08/17 09:17; Admin Dose 1 INH; Start 03/04/17 at 09:00 Lisinopril (Zestril) 20 mg DAILY PO Last administered on 03/07/17 09:34; Admin Dose 20 MG; Start 03/04/17 at 09:00 Atorvastatin Calcium (Lipitor) 10 mg DAILY@21 PO Last administered on 03/07/17 20:56; Admin Dose 10 MG; Start 03/04/17 at 21:00 Diagnostic Test (Pha) (Accu-Chek) 1 ea 02 XX Last administered on 03/08/17 02: 29; Admin Dose 1 EA; Start 03/04/17 at 02:00 Miscellaneous Information 1 ea NOTE XX ; Start 03/04/17 at 00:10 Glucose (Glutose) 15 gm Q15M PRN PO DECREASED GLUCOSE; Start 03/04/17 at 00:10 Glucose (Glutose) 22.5 gm Q15M PRN PO DECREASED GLUCOSE; Start 03/04/17 at 00:10 Dextrose (D50w Syringe) 25 ml Q15M PRN IV DECREASED GLUCOSE; Start 03/04/17 at 00:10 Dextrose (D50w Syringe) 50 ml Q15M PRN IV DECREASED GLUCOSE; Start 03/04/17 at 00:10 Glucagon (Glucagen) 1 mg Q15M PRN IM DECREASED GLUCOSE; Start 03/04/17 at 00:10 Glucose (Glutose) 15 gm Q15M PRN BUCCAL DECREASED GLUCOSE; Start 03/04/17 at 00: 10 Hydrochlorothiazide (Hydrochlorothiazide) 25 mg DAILY PO Last administered on 09:35; Admin Dose 25 MG; Start 03/04/17 at 09:00 Isosorbide Mononitrate (Imdur) 30 mg DAILY PO Last administered on 03/07/17 09: 35; Admin Dose 30 MG; Start 03/05/17 at 09:00 Nifedipine (Procardia Xl) 30 mg AM PO Last administered on 03/07/17 09:34; Admin Dose 30 MG; Start 03/05/17 at 09:00 Cyclosporine 1 drop 1 drop Q12 BOTH EYES Last administered on 03/08/17 09:16; Admin Dose 1 DROP; Start 03/05/17 at 22:18 Sodium Chloride (1/2 NS) 1,000 ml @ 50 mls/hr Q20H IV Last administered on 03/08 01:30; Admin Dose 50 MLS/HR; Start 03/06/17 at 11:30 ELEN SHAY March 08, 2017 17:41
[2017-03-08 20:36] VITALS: BP 160/65; RESP 20
[2017-03-08] MEDS: ATORVASTATIN 10 MG TAB PO SCH (20:46)
[2017-03-08] MEDS: GABAPENTIN 100 MG CAP PO SCH (20:47)
[2017-03-08] MEDS: NIFEdipine (XL) 60 MG TAB PO SCH (20:47)
[2017-03-08] MEDS: INSULIN GLARGINE [LANtus] 3 ML PEN SC SCH (20:49)
[2017-03-09] MEDS: ACCU-CHEK XX SCH (02:00)
[2017-03-09 05:21] LABS: ADD SCAN DIFF NO
[2017-03-09 05:29] LABS: BASOPHIL # 0.1 10^3/ul (0.0-0.1); BASOPHILS % 0.7 % (0.0-2.0); EOSINOPHILS # 0.3 10^3/ul (0.0-0.5); EOSINOPHILS % 3.7 % (0.0-7.0); HEMOGLOBIN 9.8 g/dl (12.0-16.0); LYMPHOCYTES # 1.5 10^3/ul (0.8-2.9); LYMPHOCYTES % 21.7 % (15.0-51.0); MEAN CORPUSCULAR HEMOGLOBIN 29.7 pg (29.0-33.0); MEAN CORPUSCULAR HGB CONC 31.6 g/dl (32.0-37.0); MEAN CORPUSCULAR VOLUME 93.9 fl (82.0-101.0); MEAN PLATELET VOLUME 11.2 fl (7.4-10.4); MONOCYTE # 0.5 10^3/ul (0.3-0.9); MONOCYTES % 6.8 % (0.0-11.0); NEUTROPHIL # 4.5 10^3/ul (1.6-7.5); NEUTROPHILS % 66.7 % (39.0-77.0); PLATELET COUNT 109 10^3/UL (140-415); RED CELL DISTRIBUTION WIDTH 14.7 % (11.5-14.5); WHITE BLOOD COUNT 6.7 10^3/ul (4.8-10.8)
[2017-03-09 05:37] LABS: POTASSIUM 3.8 mmol/L (3.5-5.1)
[2017-03-09 05:39] LABS: CREATININE 1.47 mg/dl (0.44-1.00)
[2017-03-09 05:41] LABS: CALCIUM 9.3 mg/dl (8.4-10.2)
[2017-03-09] MEDS: FUROSEMIDE 20 MG TAB PO SCH (05:55)
[2017-03-09] MEDS: PANTOPRAZOLE (EC) 40 MG TAB PO SCH ×2 (05:55→17:34)
[2017-03-09 06:08] VITALS: BP 130/60
[2017-03-09 07:26] VITALS: BP 123/59; RESP 18
[2017-03-09] MEDS: SALMETEROL/FLUTICASONE 100/50 INHA INH SCH ×2 (08:20→21:48)
[2017-03-09] MEDS: OCULAR LUBRICANT 3.5 GM OPH OINT BOTH EYES SCH ×2 (08:20→21:47)
[2017-03-09] MEDS: CYCLOSPORINE 0.05% OPH DROPERETTE BOTH EYES SCH ×2 (08:20→21:47)
[2017-03-09] MEDS: FLUTICASONE 0.05% 16 GM NAS SPRAY NASAL SCH (08:20)
[2017-03-09] MEDS: HYDROCHLOROTHIAZIDE 25 MG TAB PO SCH (08:21)
[2017-03-09] MEDS: ASPIRIN (EC) 81 MG TAB PO SCH (08:21)
[2017-03-09] MEDS: FERROUS SULFATE (EC) 325 MG TAB PO SCH ×2 (08:21→21:47)
[2017-03-09] MEDS: ISOSORBIDE MONONITRATE(SR)30 MG TAB PO SCH (08:22)
[2017-03-09] MEDS: NIFEdipine (XL) 30 MG TAB PO SCH (08:22)
[2017-03-09] MEDS: LISINOPRIL 20 MG TAB PO SCH (08:23)
[2017-03-09] MEDS: INSULIN ASPART [NOVOLOG] 3 ML PEN SC SCH ×8 (08:25→21:57)
--- NOTE | 2017-03-09 09:03 | CONS ---
Date/Time of Note Date/Time of Note DATE: 03/09/17 TIME: 09:02 Assessment/Plan Assessment/Plan Additional Assessment/Plan 1. Hypertension-now improved - off telem, con't med rx - WILL ALLOW FOR NOW 2. Systolic murmur, assess etiology-mild MR/TRace TR by echo - stable by exam - stable 3. Coronary artery disease, status post coronary artery bypass graft surgery, assess for acute coronary syndrome.NL EF by echo this admit 55-60 with LVDD 4. Dyslipidemia. 5. Diabetes mellitus- on meds 6. Possible congestive heart failure by medications- euvolemic by exam 7. Anemia, severe s/p transfusion - oncology team follows - EGD/Colonoscopy per GI Consultation Date/Type/Reason Admit Date/Time March 04, 2017 at 13:55 Initial Consult Date 03/04/17 Type of Consultation: Cardiology Referring Provider: ANUSHA TATUM MD 24 HR Interval Summary Free Text/Dictation NO acute change - BP stable - in good fluid status now - No CP noted ROS: No fever, no chills, no nausea, no vomiting, no diarrhea/constipation No recent weight changes No chest pain, no PND, no orthopnea No dizziness, blurred vision No thirst, no heat or cold intolerance Exam/Review of Systems Vital Signs Vitals Vital Signs Date Time Temp Pulse Resp B/P Pulse Ox O2 Delivery O2 Flow Rate FiO2 03/09/17 07:26 98.5 79 18 123/59 99 03/06/17 21:02 21 03/05/17 09:35 Nasal Cannula Intake and Output 03/08/17 03/08/17 03/09/17 15:00 23:00 07:00 Intake Total 1190 ml 650 ml Output Total 900 ml Balance 1190 ml -250 ml Exam General: WN/WD/NAD, AOx 2-3 HEENT: Unicetric/atraumatic/EOMI (follows commands) NECK: JVD elevated, no thyromegaly Lymph: no lymphadenopathy HEART: regular with no S3, II/ systolic murmur at apex LUNGS: Coarse sounds ABD: soft, NT, ND, +BS : Intact Neuro: non focal SKIN: chronic changes EXT: trace edema Results Result Diagram: 03/09/17 0435 03/09/17 0435 Results 24 hrs Laboratory Tests Test 03/08/17 12:35 03/08/17 17:45 03/08/17 20:44 03/09/17 01:56 Bedside Glucose 215 181 199 148 Test 03/09/17 04:35 03/09/17 08:18 White Blood Count 6.7 Red Blood Count 3.30 L Hemoglobin 9.8 L Hematocrit 31.0 L Mean Corpuscular Volume 93.9 Mean Corpuscular Hemoglobin 29.7 Mean Corpuscular Hemoglobin Concent 31.6 L Red Cell Distribution Width 14.7 H Platelet Count 109 L Mean Platelet Volume 11.2 H Neutrophils % 66.7 Lymphocytes % 21.7 Monocytes % 6.8 Eosinophils % 3.7 Basophils % 0.7 Nucleated Red Blood Cells % 0.0 Neutrophils # 4.5 Lymphocytes # 1.5 Monocytes # 0.5 Eosinophils # 0.3 Basophils # 0.1 Nucleated Red Blood Cells # 0.0 Sodium Level 138 Potassium Level 3.8 Chloride Level 104 Carbon Dioxide Level 24 Anion Gap 14 Blood Urea Nitrogen 44 H Creatinine 1.47 H Glucose Level 161 Calcium Level 9.3 Bedside Glucose 206 Medications Medications Current Medications Eye Lubricant (Akwa Oint) 1 applic BID BOTH EYES Last administered on 03/09/17 08:20; Admin Dose 1 APPLIC; Start 03/04/17 at 09:00 Aspirin (Halfprin) 81 mg DAILY PO Last administered on 03/09/17 08:21; Admin Dose 81 MG; Start 03/04/17 at 09:00 Carvedilol (Coreg) 12.5 mg BID PO Last administered on 03/09/17 08:21; Admin Dose 12.5 MG; Start 03/04/17 at 09:00 Clopidogrel Bisulfate (plaVIX) 75 mg DAILY PO Last administered on 03/05/17 10: 12; Admin Dose 75 MG; Start 03/04/17 at 09:00; Status Future Hold Ergocalciferol (Drisdol) 50,000 unit Q7D PO ; Start 03/10/17 at 09:00 Ferrous Sulfate (Ferrous Sulfate (Ec)) 325 mg BID PO Last administered on 08:21; Admin Dose 325 MG; Start 03/04/17 at 09:00 Fluticasone Propionate (Flonase 0.05% Nasal) 1 spray DAILY NASAL Last administered on 03/09/17 08:20; Admin Dose 1 SPRAY; Start 03/04/17 at 09:00 Gabapentin (Neurontin) 100 mg QPM PO Last administered on 03/08/17 20:47; Admin Dose 100 MG; Start 03/04/17 at 21:00 Insulin Glargine (Lantus) 15 unit QHS SC Last administered on 03/08/17 20:49; Admin Dose 15 UNIT; Start 03/04/17 at 21:00 Nifedipine (Procardia Xl) 60 mg QPM PO Last administered on 03/08/17 20:47; Admin Dose 60 MG; Start 03/04/17 at 21:00 Nitroglycerin (Nitroglycerin (Sl Tab) 0.4 Mg) 1 tab Q5M PRN SL CHEST PAIN; Start 03/03/17 at 23:30 Pantoprazole (Protonix Tab) 40 mg BID@06,18 PO Last administered on 03/09/17 05 :55; Admin Dose 40 MG; Start 03/04/17 at 06:00 Salmeterol Xinafoate/ Fluticasone (Advair 100/50 Diskus) 1 inh BID INH Last administered on 03/09/17 08:20; Admin Dose 1 INH; Start 03/04/17 at 09:00 Lisinopril (Zestril) 20 mg DAILY PO Last administered on 03/09/17 08:23; Admin Dose 20 MG; Start 03/04/17 at 09:00 Atorvastatin Calcium (Lipitor) 10 mg DAILY@21 PO Last administered on 03/08/17 20:46; Admin Dose 10 MG; Start 03/04/17 at 21:00 Diagnostic Test (Pha) (Accu-Chek) 1 ea 02 XX Last administered on 03/09/17 02: 00; Admin Dose 1 EA; Start 03/04/17 at 02:00 Miscellaneous Information 1 ea NOTE XX ; Start 03/04/17 at 00:10 Glucose (Glutose) 15 gm Q15M PRN PO DECREASED GLUCOSE; Start 03/04/17 at 00:10 Glucose (Glutose) 22.5 gm Q15M PRN PO DECREASED GLUCOSE; Start 03/04/17 at 00:10 Dextrose (D50w Syringe) 25 ml Q15M PRN IV DECREASED GLUCOSE; Start 03/04/17 at 00:10 Dextrose (D50w Syringe) 50 ml Q15M PRN IV DECREASED GLUCOSE; Start 03/04/17 at 00:10 Glucagon (Glucagen) 1 mg Q15M PRN IM DECREASED GLUCOSE; Start 03/04/17 at 00:10 Glucose (Glutose) 15 gm Q15M PRN BUCCAL DECREASED GLUCOSE; Start 03/04/17 at 00: 10 Hydrochlorothiazide (Hydrochlorothiazide) 25 mg DAILY PO Last administered on 08:21; Admin Dose 25 MG; Start 03/04/17 at 09:00 Isosorbide Mononitrate (Imdur) 30 mg DAILY PO Last administered on 03/09/17 08: 22; Admin Dose 30 MG; Start 03/05/17 at 09:00 Nifedipine (Procardia Xl) 30 mg AM PO Last administered on 03/09/17 08:22; Admin Dose 30 MG; Start 03/05/17 at 09:00 Cyclosporine 1 drop 1 drop Q12 BOTH EYES Last administered on 03/09/17 08:20; Admin Dose 1 DROP; Start 03/05/17 at 22:18 Sodium Chloride (1/2 NS) 1,000 ml @ 50 mls/hr Q20H IV Last administered on 03/08 22:15; Admin Dose 50 MLS/HR; Start 03/06/17 at 11:30 KEENAN MOLINA MD March 09, 2017 09:03
--- NOTE | 2017-03-09 12:55 | CONS ---
Date/Time of Note Date/Time of Note DATE: 03/09/17 TIME: 12:54 Assessment/Plan Assessment/Plan Chief Complaint/Hosp Course The patient is a 76-year-old female with severe normocytic anemia with Hgb 6.9 and slightly elevated RDW 15.3, and mild thrombocytopenia without evidence of acute bleed - s/p 2 units pRBCs 03/04/17, now Hgb stable at 10 - Peripheral smear reviewed by pathologist and showed appropriate response to anemia with polychromatophilic macrocytes, no significant red cell changes, normochromic/normocytic, no dysplastic cells, no blasts, no nucleated RBCs noted - Iron panel Fe 72, TIBC low at 215, %sat 33, ferritin 425 consistent with anemia of chronic inflammation; LDH WNL, retic appropriately elevated at 150K, B12/folate, TSH WNL; pending haptoglobin, methylmalonic acid, homocysteine - s/p EGD 03/05/17 that showed diffuse mild to moderate gastritis, a superficial ulcer in the gastric fundus noted. Minimal reflux esophagitis. On PPI therapy. No evidence of malignancy on path report. - s/p colonoscopy 03/05/17 that showed diffuse mild diverticulosis, moderate degree of internal and external hemorrhoids. Nodular fold in the rectum. - Patient declines bone marrow biopsy to rule out MDS or bone marrow pathology. - consider procrit, will check epo level - will check SPEP (pending). Mild renal insufficiency noted, workup per primary team. # Thrombocytopenia, mild. HIV/hep panel negative, DIC panel not consistent with DIC. # Elevated D-dimer, may be related to underlying inflammatory state. Low threshold to check LE dopplers or CTA if symptoms of SOB, LE edema/pain,etc. Problems: Consultation Date/Type/Reason Admit Date/Time March 04, 2017 at 13:55 Initial Consult Date 03/04/17 Type of Consultation: Hematology Referring Provider: ANUSHA TATUM MD 24 HR Interval Summary Free Text/Dictation No complaints, no bleeding. The patient states that she does not want a bone marrow biopsy. 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 Results Result Diagram: 03/09/17 0435 03/09/17 0435 Results 24 hrs Laboratory Tests Test 03/08/17 17:45 03/08/17 20:44 03/09/17 01:56 03/09/17 04:35 Bedside Glucose 181 199 148 White Blood Count 6.7 Red Blood Count 3.30 L Hemoglobin 9.8 L Hematocrit 31.0 L Mean Corpuscular Volume 93.9 Mean Corpuscular Hemoglobin 29.7 Mean Corpuscular Hemoglobin Concent 31.6 L Red Cell Distribution Width 14.7 H Platelet Count 109 L Mean Platelet Volume 11.2 H Neutrophils % 66.7 Lymphocytes % 21.7 Monocytes % 6.8 Eosinophils % 3.7 Basophils % 0.7 Nucleated Red Blood Cells % 0.0 Neutrophils # 4.5 Lymphocytes # 1.5 Monocytes # 0.5 Eosinophils # 0.3 Basophils # 0.1 Nucleated Red Blood Cells # 0.0 Sodium Level 138 Potassium Level 3.8 Chloride Level 104 Carbon Dioxide Level 24 Anion Gap 14 Blood Urea Nitrogen 44 H Creatinine 1.47 H Glucose Level 161 Calcium Level 9.3 Test 03/09/17 08:18 03/09/17 12:31 Bedside Glucose 206 250 H Medications Medications Current Medications Eye Lubricant (Akwa Oint) 1 applic BID BOTH EYES Last administered on 03/09/17 08:20; Admin Dose 1 APPLIC; Start 03/04/17 at 09:00 Aspirin (Halfprin) 81 mg DAILY PO Last administered on 03/09/17 08:21; Admin Dose 81 MG; Start 03/04/17 at 09:00 Carvedilol (Coreg) 12.5 mg BID PO Last administered on 03/09/17 08:21; Admin Dose 12.5 MG; Start 03/04/17 at 09:00 Clopidogrel Bisulfate (plaVIX) 75 mg DAILY PO Last administered on 03/05/17 10: 12; Admin Dose 75 MG; Start 03/04/17 at 09:00; Status Future Hold Ergocalciferol (Drisdol) 50,000 unit Q7D PO ; Start 03/10/17 at 09:00 Ferrous Sulfate (Ferrous Sulfate (Ec)) 325 mg BID PO Last administered on 08:21; Admin Dose 325 MG; Start 03/04/17 at 09:00 Fluticasone Propionate (Flonase 0.05% Nasal) 1 spray DAILY NASAL Last administered on 03/09/17 08:20; Admin Dose 1 SPRAY; Start 03/04/17 at 09:00 Gabapentin (Neurontin) 100 mg QPM PO Last administered on 03/08/17 20:47; Admin Dose 100 MG; Start 03/04/17 at 21:00 Insulin Glargine (Lantus) 15 unit QHS SC Last administered on 03/08/17 20:49; Admin Dose 15 UNIT; Start 03/04/17 at 21:00 Nifedipine (Procardia Xl) 60 mg QPM PO Last administered on 03/08/17 20:47; Admin Dose 60 MG; Start 03/04/17 at 21:00 Nitroglycerin (Nitroglycerin (Sl Tab) 0.4 Mg) 1 tab Q5M PRN SL CHEST PAIN; Start 03/03/17 at 23:30 Pantoprazole (Protonix Tab) 40 mg BID@,18 PO Last administered on 03/09/17 05 :55; Admin Dose 40 MG; Start 03/04/17 at 06:00 Salmeterol Xinafoate/ Fluticasone (Advair 100/50 Diskus) 1 inh BID INH Last administered on 03/09/17 08:20; Admin Dose 1 INH; Start 03/04/17 at 09:00 Lisinopril (Zestril) 20 mg DAILY PO Last administered on 03/09/17 08:23; Admin Dose 20 MG; Start 03/04/17 at 09:00 Atorvastatin Calcium (Lipitor) 10 mg DAILY@21 PO Last administered on 03/08/17 20:46; Admin Dose 10 MG; Start 03/04/17 at 21:00 Diagnostic Test (Pha) (Accu-Chek) 1 ea 02 XX Last administered on 03/09/17 02: 00; Admin Dose 1 EA; Start 03/04/17 at 02:00 Miscellaneous Information 1 ea NOTE XX ; Start 03/04/17 at 00:10 Glucose (Glutose) 15 gm Q15M PRN PO DECREASED GLUCOSE; Start 03/04/17 at 00:10 Glucose (Glutose) 22.5 gm Q15M PRN PO DECREASED GLUCOSE; Start 03/04/17 at 00:10 Dextrose (D50w Syringe) 25 ml Q15M PRN IV DECREASED GLUCOSE; Start 03/04/17 at 00:10 Dextrose (D50w Syringe) 50 ml Q15M PRN IV DECREASED GLUCOSE; Start 03/04/17 at 00:10 Glucagon (Glucagen) 1 mg Q15M PRN IM DECREASED GLUCOSE; Start 03/04/17 at 00:10 Glucose (Glutose) 15 gm Q15M PRN BUCCAL DECREASED GLUCOSE; Start 03/04/17 at 00: 10 Hydrochlorothiazide (Hydrochlorothiazide) 25 mg DAILY PO Last administered on 08:21; Admin Dose 25 MG; Start 03/04/17 at 09:00 Isosorbide Mononitrate (Imdur) 30 mg DAILY PO Last administered on 03/09/17 08: 22; Admin Dose 30 MG; Start 03/05/17 at 09:00 Nifedipine (Procardia Xl) 30 mg AM PO Last administered on 03/09/17 08:22; Admin Dose 30 MG; Start 03/05/17 at 09:00 Cyclosporine 1 drop 1 drop Q12 BOTH EYES Last administered on 03/09/17 08:20; Admin Dose 1 DROP; Start 03/05/17 at 22:18 Sodium Chloride (1/2 NS) 1,000 ml @ 50 mls/hr Q20H IV Last administered on 03/08 22:15; Admin Dose 50 MLS/HR; Start 03/06/17 at 11:30 MIKE SEGURA MD March 09, 2017 12:55
[2017-03-09] MEDS: SOD CHLORIDE 0.45% 1,000 ML IV SCH (15:28)
[2017-03-09 20:46] VITALS: BP 117/58; RESP 20
[2017-03-09] MEDS: ATORVASTATIN 10 MG TAB PO SCH (21:46)
[2017-03-09] MEDS: NIFEdipine (XL) 60 MG TAB PO SCH (21:47)
[2017-03-09] MEDS: GABAPENTIN 100 MG CAP PO SCH (21:47)
[2017-03-09] MEDS: INSULIN GLARGINE [LANtus] 3 ML PEN SC SCH (21:52)
[2017-03-10] MEDS: ACCU-CHEK XX SCH (02:00)
[2017-03-10] MEDS: PANTOPRAZOLE (EC) 40 MG TAB PO SCH ×2 (05:11→18:03)
[2017-03-10] MEDS: SOD CHLORIDE 0.45% 1,000 ML IV SCH ×2 (05:11→20:06)
[2017-03-10 05:24] LABS: POTASSIUM 3.7 mmol/L (3.5-5.1)
[2017-03-10 05:27] LABS: CREATININE 1.21 mg/dl (0.44-1.00)
[2017-03-10 07:34] VITALS: BP 104/51; RESP 18
[2017-03-10] MEDS: INSULIN ASPART [NOVOLOG] 3 ML PEN SC SCH ×7 (07:50→21:00)
[2017-03-10] MEDS: LISINOPRIL 20 MG TAB PO SCH (09:00)
[2017-03-10] MEDS ORDERED: ERGOCALCIFEROL 50,000 UNIT CAP PO SCH (09:00)
[2017-03-10] MEDS: OCULAR LUBRICANT 3.5 GM OPH OINT BOTH EYES SCH ×3 (10:00→21:44)
[2017-03-10] MEDS: FLUTICASONE 0.05% 16 GM NAS SPRAY NASAL SCH (10:01)
[2017-03-10] MEDS: ASPIRIN (EC) 81 MG TAB PO SCH (10:01)
[2017-03-10] MEDS: CYCLOSPORINE 0.05% OPH DROPERETTE BOTH EYES SCH ×2 (10:01→21:43)
[2017-03-10] MEDS: FERROUS SULFATE (EC) 325 MG TAB PO SCH ×2 (10:01→21:42)
[2017-03-10] MEDS: SALMETEROL/FLUTICASONE 100/50 INHA INH SCH ×2 (10:01→21:43)
[2017-03-10] MEDS: ISOSORBIDE MONONITRATE(SR)30 MG TAB PO SCH (10:07)
[2017-03-10] MEDS: NIFEdipine (XL) 30 MG TAB PO SCH (10:08)
--- NOTE | 2017-03-10 16:27 | CONS ---
Date/Time of Note Date/Time of Note DATE: 03/10/17 TIME: 16:24 Assessment/Plan Assessment/Plan Chief Complaint/Hosp Course IMPRESSION: 1. Hypertension-now improved/reasonable control 2. Systolic murmur, assess etiology-mild MR/TRace TR by echo 3. Coronary artery disease, status post coronary artery bypass graft surgery, assess for acute coronary syndrome.NL EF by echo this admit 55-60 with LVDD. Negative troponin x 2 4. Dyslipidemia. 5. Diabetes mellitus. 6. Possible congestive heart failure by medications. 7. Anemia, severe s/p transfusion 8. GIB-with gastric ulcer and diverticulosis by endoscopy Recc: -For EGD/colonscopy today -Contineu asa as tolerated only -plavix held at this time given severe anemia requiring transfusion -Continue current CCB/imdur/coreg/zestril/HCTZ -Continue low dose statin Problems: Consultation Date/Type/Reason Admit Date/Time March 04, 2017 at 13:55 Initial Consult Date 03/04/17 Type of Consultation: Cardiology Reason for Consultation HTN Referring Provider: ANUSHA TATUM MD Exam/Review of Systems Vital Signs Vitals Vital Signs Date Time Temp Pulse Resp B/P Pulse Ox O2 Delivery O2 Flow Rate FiO2 03/10/17 07:34 97.8 66 18 104/51 100 03/06/17 21:02 21 Intake and Output 03/09/17 03/09/17 03/10/17 15:00 23:00 07:00 Intake Total 450 ml 1545 ml 810 ml Output Total 1200 ml Balance 450 ml 345 ml 810 ml Exam Review of Systems: CONSTITUTIONAL: No fevers, chills. PULMONARY: No sob CARDIOVASCULAR: No chest pain/palpitations GASTROINTESTINAL: No nausea/vomiting. GENITOURINARY: No hematuria/dysuria. MUSCULOSKELETAL: No myagias/arthalgias. PSYCHIATRIC: The patient denies depression. NEUROLOGIC: lethargic Constitutional: other (sleeping) Psych: no complaints Head: normocephalic ENMT: mucosa pink and moist Neck: jvd (8 cm water), supple Respiratory: diminished breath sounds (at bases/B) Cardiovascular: regular rate and rhythm Gastrointestinal: non-tender, soft Musculoskeletal: muscle tone (normal) Extremities: edema Neurological: other (No focal deficits) Results Result Diagram: 03/09/17 0435 03/10/17 0430 Results 24 hrs Laboratory Tests Test 03/09/17 17:32 03/09/17 21:45 03/10/17 04:30 03/10/17 08:15 Bedside Glucose 132 185 136 Sodium Level 139 Potassium Level 3.7 Chloride Level 105 Carbon Dioxide Level 25 Anion Gap 13 Blood Urea Nitrogen 42 H Creatinine 1.21 H Glucose Level 121 # Calcium Level 9.0 Test 03/10/17 12:16 Bedside Glucose 227 H Medications Medications Current Medications Eye Lubricant (Akwa Oint) 1 applic BID BOTH EYES Last administered on 10:00; Admin Dose 1 APPLIC; Start 03/04/17 at 09:00 Aspirin (Halfprin) 81 mg DAILY PO Last administered on 03/10/17 10:01; Admin Dose 81 MG; Start 03/04/17 at 09:00 Carvedilol (Coreg) 12.5 mg BID PO Last administered on 03/10/17 10:07; Admin Dose 12.5 MG; Start 03/04/17 at 09:00 Clopidogrel Bisulfate (plaVIX) 75 mg DAILY PO Last administered on 03/05/17 10: 12; Admin Dose 75 MG; Start 03/04/17 at 09:00; Status Future Hold Ergocalciferol (Drisdol) 50,000 unit Q7D PO Last administered on 03/10/17 10: 18; Admin Dose 50,000 UNIT; Start 03/10/17 at 09:00 Ferrous Sulfate (Ferrous Sulfate (Ec)) 325 mg BID PO Last administered on 10:01; Admin Dose 325 MG; Start 03/04/17 at 09:00 Fluticasone Propionate (Flonase 0.05% Nasal) 1 spray DAILY NASAL Last administered on 03/10/17 10:01; Admin Dose 1 SPRAY; Start 03/04/17 at 09:00 Gabapentin (Neurontin) 100 mg QPM PO Last administered on 03/09/17 21:47; Admin Dose 100 MG; Start 03/04/17 at 21:00 Nifedipine (Procardia Xl) 60 mg QPM PO Last administered on 03/09/17 21:47; Admin Dose 60 MG; Start 03/04/17 at 21:00 Nitroglycerin (Nitroglycerin (Sl Tab) 0.4 Mg) 1 tab Q5M PRN SL CHEST PAIN; Start 03/03/17 at 23:30 Pantoprazole (Protonix Tab) 40 mg BID@06,18 PO Last administered on 03/10/17 05:11; Admin Dose 40 MG; Start 03/04/17 at 06:00 Salmeterol Xinafoate/ Fluticasone (Advair 100/50 Diskus) 1 inh BID INH Last administered on 03/10/17 10:01; Admin Dose 1 INH; Start 03/04/17 at 09:00 Lisinopril (Zestril) 20 mg DAILY PO Last administered on 03/09/17 08:23; Admin Dose 20 MG; Start 03/04/17 at 09:00 Atorvastatin Calcium (Lipitor) 10 mg DAILY@21 PO Last administered on 03/09/17 21:46; Admin Dose 10 MG; Start 03/04/17 at 21:00 Diagnostic Test (Pha) (Accu-Chek) 1 ea 02 XX Last administered on 03/09/17 02: 00; Admin Dose 1 EA; Start 03/04/17 at 02:00 Miscellaneous Information 1 ea NOTE XX ; Start 03/04/17 at 00:10 Glucose (Glutose) 15 gm Q15M PRN PO DECREASED GLUCOSE; Start 03/04/17 at 00:10 Glucose (Glutose) 22.5 gm Q15M PRN PO DECREASED GLUCOSE; Start 03/04/17 at 00:10 Dextrose (D50w Syringe) 25 ml Q15M PRN IV DECREASED GLUCOSE; Start 03/04/17 at 00:10 Dextrose (D50w Syringe) 50 ml Q15M PRN IV DECREASED GLUCOSE; Start 03/04/17 at 00:10 Glucagon (Glucagen) 1 mg Q15M PRN IM DECREASED GLUCOSE; Start 03/04/17 at 00:10 Glucose (Glutose) 15 gm Q15M PRN BUCCAL DECREASED GLUCOSE; Start 03/04/17 at 00: 10 Isosorbide Mononitrate (Imdur) 30 mg DAILY PO Last administered on 03/09/17 08: 22; Admin Dose 30 MG; Start 03/05/17 at 09:00 Nifedipine (Procardia Xl) 30 mg AM PO Last administered on 03/09/17 08:22; Admin Dose 30 MG; Start 03/05/17 at 09:00 Cyclosporine 1 drop 1 drop Q12 BOTH EYES Last administered on 03/10/17 10:01; Admin Dose 1 DROP; Start 03/05/17 at 22:18 Sodium Chloride (1/2 NS) 1,000 ml @ 75 mls/hr [id number] IV Last administered on 03/10/17 05:11; Admin Dose 75 MLS/HR; Start 03/09/17 at 15:00 Insulin Glargine (Lantus) 18 unit QHS SC Last administered on 03/09/17 21:52; Admin Dose 18 UNIT; Start 03/09/17 at 21:00 ELEN SHAY March 10, 2017 16:27
--- NOTE | 2017-03-10 16:28 | DS ---
DATE OF ADMISSION: 03/04/2017 DATE OF DISCHARGE: 03/10/2017 FINAL DIAGNOSES: 1. Symptomatic anemia with mild thrombocytopenia. 1. Diffuse mild to moderate gastritis, superficial gastric ulcer and minimal reflux esophagitis per esophagogastroduodenoscopy. 2. Hypertension. 3. Coronary artery disease status post coronary artery bypass graft. 4. Dyslipidemia. 5. Diabetes mellitus. BRIEF HISTORY: The patient is a 76-year-old female with history of coronary artery bypass, hyperten layo, diabetes and dyslipidemia. The patient was brought to the hospital for symptomatic anemia. T he patient was sent from [facility] facility for a hemoglobin of 6.8 and patient was admitted f or further evaluation and management. HOSPITAL COURSE: The patient was evaluated by Dr. Simon in gastroenterology consultation and clarissa nt underwent EGD on 03/05/2017, which revealed diffuse mild to moderate gastritis, superficial gastr ic ulcer and minimal reflux esophagitis. The patient was continued on Protonix. Patient was also e valuated by Dr. Molina in hematology/oncology consultation. Patient also received blood transfusion of 2 units of packed red blood cells. After that hemoglobin was stable between 9.8 and 10.5 and varied during the hospital stay. Per hematology evaluation, the patient's peripheral smear reviewed by jinny stover showed appropriate response to anemia with polychromatophilic macrocytes, no significant red cell changes. Normochromic normocytic. No dysplastic cell, no blasts, no nucleated red blood cell s noted. The patient's anemia was consistent with anemia of chronic inflammation. The patient was recommended to undergo bone marrow biopsy for further evaluation. However, patient refused bone mar row biopsy to rule out MDS. The patient was also evaluated by Dr. Buckner in cardiology consultatio n and Plavix held due to patient's anemia. FOLLOWUP: The patient continued on aspirin, continued on Imdur, Coreg and Zestril, hydrochlorothiaz handy and calcium beta timur and statin. Patient's condition improved and the patient will be disch arged to [facility]. CONDITION ON DISCHARGE: Hemodynamically stable. ACTIVITY: As patient tolerates. DIET: 1800 ADA 2 g sodium, low fat, low cholesterol diet. DISCHARGE MEDICATIONS: 1. DuoNeb q.6h. 2. Ocular lubricant. 3. Aspirin. 4. Atorvastatin. 5. Coreg. 6. Restasis. 7. Plavix will be held. We will continue to hold it. 8. Drisdol. 9. Ferrous sulfate. 10. Flonase. 11. Neurontin. 12. Hypoglycemia protocol. 13. NovoLog per mild algorithm sliding scale, NovoLog 3 units with meals, Lantus 18 units before be dtime. 14. Imdur. 15. Lisinopril. 16. Procardia. 17. Nitroglycerin p.r.n. for chest pain. 18. Protonix. 19. Diskus. Interdisciplinary plan of care was established for this patient. Plan of care was discussed with Dr Rukhsana Tatum. Plavix actually will be held and we will continue to hold it. CBC in 1 week at [facility] facility. Defer restarting Plavix to primary care physician. Dictated By: DONTE OSORIO ELEVATOR EXAMINER AND ADJUSTER for ANUSHA TATUM MD SR/NTS Conf#: [id number] DID#: [id number]
[2017-03-10 20:11] VITALS: BP 124/56; RESP 18
[2017-03-10] MEDS: ATORVASTATIN 10 MG TAB PO SCH (21:42)
[2017-03-10] MEDS: NIFEdipine (XL) 60 MG TAB PO SCH (21:42)
[2017-03-10] MEDS: GABAPENTIN 100 MG CAP PO SCH (21:43)
[2017-03-10] MEDS: INSULIN GLARGINE [LANtus] 3 ML PEN SC SCH (21:45)
[2017-03-11] MEDS: ACCU-CHEK XX SCH (02:00)
[2017-03-11 04:43] LABS: ADD SCAN DIFF NO
[2017-03-11 04:56] LABS: ABNORMAL IP MESSAGE 1; BASOPHIL # 0.1 10^3/ul (0.0-0.1); BASOPHILS % 0.8 % (0.0-2.0); EOSINOPHILS # 0.2 10^3/ul (0.0-0.5); EOSINOPHILS % 3.4 % (0.0-7.0); HEMATOCRIT 29.1 % (37.0-47.0); HEMOGLOBIN 9.5 g/dl (12.0-16.0); LYMPHOCYTES # 1.2 10^3/ul (0.8-2.9); LYMPHOCYTES % 20.6 % (15.0-51.0); MEAN CORPUSCULAR HEMOGLOBIN 30.8 pg (29.0-33.0); MEAN CORPUSCULAR HGB CONC 32.6 g/dl (32.0-37.0); MEAN CORPUSCULAR VOLUME 94.5 fl (82.0-101.0); MEAN PLATELET VOLUME 10.9 fl (7.4-10.4); MONOCYTE # 0.4 10^3/ul (0.3-0.9); MONOCYTES % 6.6 % (0.0-11.0); NEUTROPHILS % 68.1 % (39.0-77.0); PLATELET COUNT 92 10^3/UL (140-415); RED BLOOD COUNT 3.08 10^6/ul (4.20-5.40); RED CELL DISTRIBUTION WIDTH 14.5 % (11.5-14.5); WHITE BLOOD COUNT 5.9 10^3/ul (4.8-10.8)
[2017-03-11] MEDS: PANTOPRAZOLE (EC) 40 MG TAB PO SCH (05:31)
[2017-03-11] MEDS: SOD CHLORIDE 0.45% 1,000 ML IV SCH ×2 (07:00→09:46)
[2017-03-11] MEDS: INSULIN ASPART [NOVOLOG] 3 ML PEN SC SCH ×4 (07:50→13:34)
[2017-03-11 08:24] VITALS: BP 124/56; RESP 18
[2017-03-11] MEDS: CYCLOSPORINE 0.05% OPH DROPERETTE BOTH EYES SCH (08:46)
[2017-03-11] MEDS: SALMETEROL/FLUTICASONE 100/50 INHA INH SCH (08:47)
[2017-03-11] MEDS: FLUTICASONE 0.05% 16 GM NAS SPRAY NASAL SCH (08:47)
[2017-03-11] MEDS: NIFEdipine (XL) 30 MG TAB PO SCH (08:48)
[2017-03-11] MEDS: ASPIRIN (EC) 81 MG TAB PO SCH (08:48)
[2017-03-11] MEDS: FERROUS SULFATE (EC) 325 MG TAB PO SCH (08:48)
[2017-03-11] MEDS: LISINOPRIL 20 MG TAB PO SCH (08:48)
[2017-03-11] MEDS: OCULAR LUBRICANT 3.5 GM OPH OINT BOTH EYES SCH (08:48)
[2017-03-11] MEDS: ISOSORBIDE MONONITRATE(SR)30 MG TAB PO SCH (08:49)
--- NOTE | 2017-03-11 14:05 | CONS ---
Date/Time of Note Date/Time of Note DATE: 03/11/17 TIME: 14:03 Assessment/Plan Assessment/Plan Chief Complaint/Hosp Course IMPRESSION: 1. Hypertension-now improved/reasonable control 2. Systolic murmur, assess etiology-mild MR/TRace TR by echo 3. Coronary artery disease, status post coronary artery bypass graft surgery, assess for acute coronary syndrome.NL EF by echo this admit 55-60 with LVDD. Negative troponin x 2 4. Dyslipidemia. 5. Diabetes mellitus. 6. Possible congestive heart failure by medications. 7. Anemia, severe s/p transfusion 8. GIB-with gastric ulcer and diverticulosis by endoscopy Recc: -For EGD/colonscopy today -Continue asa as tolerated only -plavix held at this time given severe anemia requiring transfusion -Continue current CCB/imdur/coreg/zestril/HCTZ -Continue low dose statin -D/C planning Problems: Consultation Date/Type/Reason Admit Date/Time March 04, 2017 at 13:55 Initial Consult Date 03/04/17 Type of Consultation: Cardiology Reason for Consultation HTN Referring Provider: ANUSHA TATUM MD Exam/Review of Systems Vital Signs Vitals Vital Signs Date Time Temp Pulse Resp B/P Pulse Ox O2 Delivery O2 Flow Rate FiO2 03/11/17 08:24 97.9 70 18 124/56 94 Intake and Output 03/10/17 03/10/17 03/11/17 15:00 23:00 07:00 Intake Total 2220 ml 975 ml Output Total 450 ml Balance 2220 ml 525 ml Exam Review of Systems: CONSTITUTIONAL: No fevers, chills. PULMONARY: No sob CARDIOVASCULAR: No chest pain/palpitations GASTROINTESTINAL: No nausea/vomiting. GENITOURINARY: No hematuria/dysuria. MUSCULOSKELETAL: No myagias/arthalgias. PSYCHIATRIC: The patient denies depression. NEUROLOGIC: No weakness Constitutional: alert Psych: no complaints Head: normocephalic ENMT: mucosa pink and moist Neck: jvd (8cm water), supple Respiratory: clear to auscultation Cardiovascular: regular rate and rhythm Gastrointestinal: non-tender, soft Musculoskeletal: muscle tone (normal) Extremities: edema (none) Neurological: other (No focal deficits) Results Result Diagram: 03/11/17 0415 03/10/17 0430 Results 24 hrs Laboratory Tests Test 03/10/17 17:46 03/10/17 21:41 03/11/17 04:15 03/11/17 08:21 Bedside Glucose 127 173 93 White Blood Count 5.9 Red Blood Count 3.08 L Hemoglobin 9.5 L Hematocrit 29.1 L Mean Corpuscular Volume 94.5 Mean Corpuscular Hemoglobin 30.8 Mean Corpuscular Hemoglobin Concent 32.6 Red Cell Distribution Width 14.5 Platelet Count 92 L Mean Platelet Volume 10.9 H Neutrophils % 68.1 Lymphocytes % 20.6 Monocytes % 6.6 Eosinophils % 3.4 Basophils % 0.8 Nucleated Red Blood Cells % 0.0 Neutrophils # 4.0 Lymphocytes # 1.2 Monocytes # 0.4 Eosinophils # 0.2 Basophils # 0.1 Nucleated Red Blood Cells # 0.0 Test 03/11/17 11:42 Bedside Glucose 182 Medications Medications Current Medications Eye Lubricant (Akwa Oint) 1 applic BID BOTH EYES Last administered on 08:48; Admin Dose 1 APPLIC; Start 03/04/17 at 09:00 Aspirin (Halfprin) 81 mg DAILY PO Last administered on 03/11/17 08:48; Admin Dose 81 MG; Start 03/04/17 at 09:00 Carvedilol (Coreg) 12.5 mg BID PO Last administered on 03/11/17 08:48; Admin Dose 12.5 MG; Start 03/04/17 at 09:00 Clopidogrel Bisulfate (plaVIX) 75 mg DAILY PO Last administered on 03/05/17 10: 12; Admin Dose 75 MG; Start 03/04/17 at 09:00; Status Future Hold Ergocalciferol (Drisdol) 50,000 unit Q7D PO Last administered on 03/10/17 10: 18; Admin Dose 50,000 UNIT; Start 03/10/17 at 09:00 Ferrous Sulfate (Ferrous Sulfate (Ec)) 325 mg BID PO Last administered on 08:48; Admin Dose 325 MG; Start 03/04/17 at 09:00 Fluticasone Propionate (Flonase 0.05% Nasal) 1 spray DAILY NASAL Last administered on 03/11/17 08:47; Admin Dose 1 SPRAY; Start 03/04/17 at 09:00 Gabapentin (Neurontin) 100 mg QPM PO Last administered on 03/10/17 21:43; Admin Dose 100 MG; Start 03/04/17 at 21:00 Nifedipine (Procardia Xl) 60 mg QPM PO Last administered on 03/10/17 21:42; Admin Dose 60 MG; Start 03/04/17 at 21:00 Nitroglycerin (Nitroglycerin (Sl Tab) 0.4 Mg) 1 tab Q5M PRN SL CHEST PAIN; Start 03/03/17 at 23:30 Pantoprazole (Protonix Tab) 40 mg BID@06,18 PO Last administered on 03/11/17 05:31; Admin Dose 40 MG; Start 03/04/17 at 06:00 Salmeterol Xinafoate/ Fluticasone (Advair 100/50 Diskus) 1 inh BID INH Last administered on 03/11/17 08:47; Admin Dose 1 INH; Start 03/04/17 at 09:00 Lisinopril (Zestril) 20 mg DAILY PO Last administered on 03/11/17 08:48; Admin Dose 20 MG; Start 03/04/17 at 09:00 Atorvastatin Calcium (Lipitor) 10 mg DAILY@21 PO Last administered on 21:42; Admin Dose 10 MG; Start 03/04/17 at 21:00 Diagnostic Test (Pha) (Accu-Chek) 1 ea 02 XX Last administered on 03/09/17 02: 00; Admin Dose 1 EA; Start 03/04/17 at 02:00 Miscellaneous Information 1 ea NOTE XX ; Start 03/04/17 at 00:10 Glucose (Glutose) 15 gm Q15M PRN PO DECREASED GLUCOSE; Start 03/04/17 at 00:10 Glucose (Glutose) 22.5 gm Q15M PRN PO DECREASED GLUCOSE; Start 03/04/17 at 00:10 Dextrose (D50w Syringe) 25 ml Q15M PRN IV DECREASED GLUCOSE; Start 03/04/17 at 00:10 Dextrose (D50w Syringe) 50 ml Q15M PRN IV DECREASED GLUCOSE; Start 03/04/17 at 00:10 Glucagon (Glucagen) 1 mg Q15M PRN IM DECREASED GLUCOSE; Start 03/04/17 at 00:10 Glucose (Glutose) 15 gm Q15M PRN BUCCAL DECREASED GLUCOSE; Start 03/04/17 at 00: 10 Isosorbide Mononitrate (Imdur) 30 mg DAILY PO Last administered on 03/11/17 08 :49; Admin Dose 30 MG; Start 03/05/17 at 09:00 Nifedipine (Procardia Xl) 30 mg AM PO Last administered on 03/11/17 08:48; Admin Dose 30 MG; Start 03/05/17 at 09:00 Cyclosporine 1 drop 1 drop Q12 BOTH EYES Last administered on 03/11/17 08:46; Admin Dose 1 DROP; Start 03/05/17 at 22:18 Sodium Chloride (1/2 NS) 1,000 ml @ 75 mls/hr [id number] IV Last administered on 03/11/17 09:46; Admin Dose 75 MLS/HR; Start 03/09/17 at 15:00 Insulin Glargine (Lantus) 18 unit QHS SC Last administered on 03/10/17 21:45; Admin Dose 18 UNIT; Start 03/09/17 at 21:00 ELEN SHAY March 11, 2017 14:05
--- NOTE | 2017-03-11 16:51 | DS ---
Date/Time of Note Date/Time of Note DATE: 03/11/17 TIME: 16:51 Discharge Summary Admission/Discharge Info Admit Date/Time March 04, 2017 at 13:55 Discharge Date/Time March 11, 2017 at 16:00 Hospital Course IMPRESSION: 1. Hypertension-now improved/reasonable control 2. Systolic murmur, assess etiology-mild MR/TRace TR by echo 3. Coronary artery disease, status post coronary artery bypass graft surgery, assess for acute coronary syndrome.NL EF by echo this admit 55-60 with LVDD. Negative troponin x 2 4. Dyslipidemia. 5. Diabetes mellitus. 6. Possible congestive heart failure by medications. 7. Anemia, severe s/p transfusion 8. GIB-with gastric ulcer and diverticulosis by endoscopy Recc: -For EGD/colonscopy today -Continue asa as tolerated only -plavix held at this time given severe anemia requiring transfusion -Continue current CCB/imdur/coreg/zestril/HCTZ -Continue low dose statin -D/C planning Home Meds Reported Medications Simvastatin* (Zocor*) 20 Mg Tablet, 20 MG PO QHS, #30 TAB 03/03/17 Pantoprazole* (Pantoprazole*) 40 Mg Tablet.dr, 40 MG PO BID, TAB 03/03/17 Nitroglycerin* (Nitroglycerin* SL) 0.4 Mg Tab.subl, 0.4 MG SL Q5MIN Y for CHEST PAIN, BOTTLE 03/03/17 Nifedipine* (Adalat CC*) 60 Mg Tablet.sa, 60 MG PO QPM, #30 TAB.SA 03/03/17 Metoprolol Succinate* (Toprol XL*) 25 Mg Tab.sr.24h, 25 MG PO DAILY, #30 TAB 03/03/17 Lisinopril/Hydrochlorothiazide (Lisinopril-Hctz 20-25 mg Tab) 1 Each Tablet, 1 EACH PO DAILY, TAB 03/03/17 Isosorbide Dinitrate* (Isosorbide Dinitrate*) 30 Mg Tablet, 30 MG PO DAILY, TAB 03/03/17 Gabapentin* (Gabapentin*) 100 Mg Capsule, 100 MG PO QPM, #90 CAP 03/03/17 Fluticasone Propionate (Flonase Allergy Relief) 9.9 Ml [place].susp, 1 SPRAY NASAL DAILY, #1 BOTTLE TO EACH NOSTRIL 03/03/17 Ferrous Sulfate* (Ferrous Sulfate*) 325 Mg Tabec, 325 MG PO BID, TAB 03/03/17 Ergocalciferol (Vitamin D2) (VITAMIN D2) 50,000 Unit Capsule, 94806 UNIT PO WEEKLY, CAP 03/03/17 Cyclosporine (RESTASIS) 1 Each Droperette, 1 DROP BOTH EYES Q12, #1 BOX 03/03/17 Carvedilol* (Coreg*) 12.5 Mg Tablet, 12.5 MG PO BID, #60 TAB 03/03/17 Budesonide-Formoterol Fumarate* (Symbicort*) 80-4.5 Inha, 1 PUFFS INHALATION BID , #1 EACH 03/03/17 Aspirin* (Aspirin* EC) 81 Mg Tablet.dr, 81 MG PO DAILY, TAB 03/03/17 Artificial Tears* (Akwa Oint*) 3.5 Gm Oint, 1 APPLIC BOTH EYES BID, #1 TUB 03/03/17 Amlodipine Besylate* (Amlodipine Besylate*) 5 Mg Tablet, 5 MG PO DAILY, #30 TAB 03/03/17 Albuterol Sulfate* (Albuterol Sulfate* Neb) 0.083%-3 Ml Neb, 2.5 MG NEB Q6 Y for WHEEZING AND SOB, #30 VIAL 03/03/17 Discontinued Reported Medications Insulin Glargine* (Lantus*) 100 Unit/Ml Soln, 15 UNIT SC QHS, #1 VIAL 03/03/17 Furosemide* (Furosemide*) 20 Mg Tablet, 20 MG PO BID, #30 TAB 03/03/17 Dicyclomine Hcl* (Bentyl*) 10 Mg Capsule, 10 MG PO QID, CAP 03/03/17 Clopidogrel Bisulfate (Clopidogrel) 75 Mg Tablet, 75 MG PO DAILY, #30 TAB 03/03/17 Pending Labs Laboratory Tests Test 03/10/17 17:46 03/10/17 21:41 03/11/17 04:15 03/11/17 08:21 Bedside Glucose 127mg/dL (70-220) 173mg/dL (70-220) 93mg/dL (70-220) White Blood Count 5.910^3/ul (4.8-10.8) Red Blood Count 3.0810^6/ul (4.20-5.40) Hemoglobin 9.5g/dl (12.0-16.0) Hematocrit 29.1% (37.0-47.0) Mean Corpuscular Volume 94.5fl (82.0-101.0) Mean Corpuscular Hemoglobin 30.8pg (29.0-33.0) Mean Corpuscular Hemoglobin Concent 32.6g/dl (32.0-37.0) Red Cell Distribution Width 14.5% (11.5-14.5) Platelet Count 9210^3/UL (140-415) Mean Platelet Volume 10.9fl (7.4-10.4) Neutrophils % 68.1% (39.0-77.0) Lymphocytes % 20.6% (15.0-51.0) Monocytes % 6.6% (0.0-11.0) Eosinophils % 3.4% (0.0-7.0) Basophils % 0.8% (0.0-2.0) Nucleated Red Blood Cells % 0.0/100WBC (0.0-0.0) Neutrophils # 4.010^3/ul (1.6-7.5) Lymphocytes # 1.210^3/ul (0.8-2.9) Monocytes # 0.410^3/ul (0.3-0.9) Eosinophils # 0.210^3/ul (0.0-0.5) Basophils # 0.110^3/ul (0.0-0.1) Nucleated Red Blood Cells # 0.010^3/ul (0.0-0.0) Test 03/11/17 11:42 Bedside Glucose 182mg/dL (70-220) AZALEA NICOLE March 11, 2017 16:51
== END 2017-03-11 16:00 | DRG 811 ==
LOC: E/R 14:24 → MS1 20:59 → OBSVTOIN 03-04 13:55
PROVIDERS: ADMIT Internal Medicine; ATTEND Internal Medicine
PROC: 30233N1 Transfusion of Nonautologous Red Blood Cells into Peripheral Vein, Percutaneous Approach (ICD-10-PCS; 2017-03-04)
PROC: 0DBP8ZX Excision of Rectum, Via Natural or Artificial Opening Endoscopic, Diagnostic (ICD-10-PCS; 2017-03-05)
PROC: 0DB68ZX Excision of Stomach, Via Natural or Artificial Opening Endoscopic, Diagnostic (ICD-10-PCS; principal; 2017-03-05 08:00)
PROC: 0DB78ZX Excision of Stomach, Pylorus, Via Natural or Artificial Opening Endoscopic, Diagnostic (ICD-10-PCS; 2017-03-05 08:00)
DX: D50.0 Iron deficiency anemia secondary to blood loss (chronic) (principal); K25.4 Chronic or unspecified gastric ulcer with hemorrhage; D69.6 Thrombocytopenia, unspecified; D89.2 Hypergammaglobulinemia, unspecified; K92.2 Gastrointestinal hemorrhage, unspecified; E11.9 Type 2 diabetes mellitus without complications; I10 Essential (primary) hypertension; I25.2 Old myocardial infarction; Z95.1 Presence of aortocoronary bypass graft; Z85.3 Personal history of malignant neoplasm of breast; Z85.41 Personal history of malignant neoplasm of cervix uteri; R63.4 Abnormal weight loss; Z68.24 Body mass index [BMI] 24.0-24.9, adult; K25.9 Gastric ulcer, unspecified as acute or chronic, without hemorrhage or perforation; K57.30 Diverticulosis of large intestine without perforation or abscess without bleeding; K64.4 Residual hemorrhoidal skin tags; K64.8 Other hemorrhoids
CPT/HCPCS: 36415; 36430; 80048; 80053; 80061; 82270; 82607; 82668; 82728; 82746; 82962; 83010; 83036; 83090; 83540; 83615; 83921; 84132; 84155; 84165; 84443; 84484; 85025; 85045; 85049; 85362; 85378; 85384; 85610; 85670; 85730; 86703; 86704; 86709; 86803; 86850; 86860; 86870; 86880; 86900; 86901; 86902; 86906; 86920; 86970; 86971; 86978; 87081; 87340; 88305; 88312; 93005; 93306; 93880; 93922; 97110; 97116; 97162; 97530; G0378; J1815; J7040; P9016

== ENCOUNTER 2017-03-24 08:37 | Emergency (ER) | payer OTHER ==
[~2017-03-24] VITALS: Ht 157.5 cm; Wt 67.0 kg
[~2017-03-24 08:37] MED LIST: ALBU2.5V3 NEB; AMLO-145 PO; ASPI-664 PO; CARV12.598 PO; CYCL1DRO BOTH EYES; ERGO500037 PO; FER325 PO; FLUT9.9S NASAL; GABA100C14 PO; ISOS30TA18 PO; LISI1TAB8 PO; METO25TA7 PO; MINE3.5O31 BOTH EYES; NIFE60TA36 PO; NITR0.4T6 SL; PANT40TA4 PO; SIMV20TA PO; SYMB80120 INHALATION
[2017-03-24] MEDS ORDERED: SOD CHLORIDE 0.9% 500 ML IV STA (08:39)
[2017-03-24 08:43] VITALS: Ht 157.5 cm; Wt 67.0 kg
--- NOTE | 2017-03-24 08:55 | ERA ---
ER Documentation Chief Complaint Date/Time DATE: 03/24/17 TIME: 08:53 Chief Complaint ap with bloody stools HPI Very pleasant 76-year-old female history of diverticulosis, gastritis who presents with mild abdominal cramping and bloody bowel movement. It appears that blood was noted in her diaper from a snf facility earlier this morning. The patient does describe mild abdominal discomfort but no back pain, no hematemesis but the patient did have an episode of nonbloody nonbilious emesis. She denies any chest pain or shortness of breath. She denies history of GI bleed or anticoagulants. ROS All systems reviewed and are negative except as per history of present illness. Medications Home Meds Reported Medications Protein Supplement (Promod) 946 Ml Liquid, 30 ML PO BID 03/24/17 Nifedipine* (Nifedipine ER*) 30 Mg Tablet.sa, 30 MG PO DAILY, TAB.SA HOLD IF SBP<110 03/24/17 Insulin Aspart* (Novolog Insulin Pen*) 100 Unit/Ml Soln, 0 SC .SLIDING SCALE ACHS, EA 03/24/17 Multivitamins* (Theragran*) 1 Tab Tab, 1 TAB PO DAILY, TAB 03/24/17 Lisinopril* (Lisinopril*) 20 Mg Tablet, 20 MG PO DAILY, #30 TAB HOLD IF SBP<110 OR HR<60 03/24/17 Insulin Glargine* (Lantus*) 100 Unit/Ml Soln, 18 UNIT SC QHS, #1 VIAL 03/24/17 Glucagon,Human Recombinant (Glucagen) 1 Mg Vial, 1 MG IJ PRN, VIAL 03/24/17 Fluticasone Propionate (Flonase Allergy Relief) 9.9 Ml [place].susp, 1 SPRAY NASAL DAILY, #1 BOTTLE TO EACH NOSTRIL 03/24/17 Atorvastatin Calcium (Atorvastatin Calcium) 10 Mg Tablet, 10 MG PO QHS, #30 TAB 03/24/17 Salmeterol Xinaf-Fluticasone* (Advair*) 100/50 Diskus Inhaler, 1 INH INHALATION BID, #1 INHALER 03/24/17 Pantoprazole* (Pantoprazole*) 40 Mg Tablet.dr, 40 MG PO BID, TAB 03/03/17 Nitroglycerin* (Nitroglycerin* SL) 0.4 Mg Tab.subl, 0.4 MG SL Q5MIN Y for CHEST PAIN, BOTTLE 03/03/17 Isosorbide Dinitrate* (Isosorbide Dinitrate*) 30 Mg Tablet, 30 MG PO DAILY, TAB 03/03/17 Gabapentin* (Gabapentin*) 100 Mg Capsule, 100 MG PO QHS, #90 CAP 03/03/17 Ergocalciferol (Vitamin D2) (VITAMIN D2) 50,000 Unit Capsule, 57381 UNIT PO WEEKLY, CAP EVERY WEDNESDAY 03/03/17 Cyclosporine (RESTASIS) 1 Each Droperette, 1 DROP BOTH EYES Q12, #1 BOX 03/03/17 Carvedilol* (Coreg*) 12.5 Mg Tablet, 12.5 MG PO BID, #60 TAB HOLD IF SBP<110 OOR HR<60 03/03/17 Aspirin* (Aspirin* EC) 81 Mg Tablet.dr, 81 MG PO DAILY, TAB 03/03/17 Albuterol Sulfate* (Albuterol Sulfate* Neb) 0.083%-3 Ml Neb, 2.5 MG NEB Q6 Y for WHEEZING AND SOB, #30 VIAL 03/03/17 Discontinued Reported Medications Simvastatin* (Zocor*) 20 Mg Tablet, 20 MG PO QHS, #30 TAB 03/03/17 Nifedipine* (Adalat CC*) 60 Mg Tablet.sa, 60 MG PO QPM, #30 TAB.SA 03/03/17 Metoprolol Succinate* (Toprol XL*) 25 Mg Tab.sr.24h, 25 MG PO DAILY, #30 TAB 03/03/17 Lisinopril/Hydrochlorothiazide (Lisinopril-Hctz 20-25 mg Tab) 1 Each Tablet, 1 EACH PO DAILY, TAB 03/03/17 Fluticasone Propionate (Flonase Allergy Relief) 9.9 Ml [place].susp, 1 SPRAY NASAL DAILY, #1 BOTTLE TO EACH NOSTRIL 03/03/17 Ferrous Sulfate* (Ferrous Sulfate*) 325 Mg Tabec, 325 MG PO BID, TAB 03/03/17 Budesonide-Formoterol Fumarate* (Symbicort*) 80-4.5 Inha, 1 PUFFS INHALATION BID , #1 EACH 03/03/17 Artificial Tears* (Akwa Oint*) 3.5 Gm Oint, 1 APPLIC BOTH EYES BID, #1 TUB 03/03/17 Amlodipine Besylate* (Amlodipine Besylate*) 5 Mg Tablet, 5 MG PO DAILY, #30 TAB 03/03/17 Allergies Allergies: Coded Allergies: Penicillins (Verified Allergy, Severe, 03/03/17) Sulfa (Sulfonamide Antibiotics) (Verified Allergy, Severe, 03/03/17) codeine (Verified Allergy, Severe, 03/03/17) diphenhydramine (Verified Allergy, Severe, 03/03/17) hydromorphone (Verified Allergy, Severe, 03/03/17) ibuprofen (Verified Allergy, Severe, 03/03/17) iodine (Verified Allergy, Severe, 03/03/17) ketorolac (Verified Allergy, Severe, 03/03/17) quinine (Verified Allergy, Severe, 03/03/17) PMhx/Soc History of Surgery: Yes (LAP APPY; OPEN HEART(1999); LAP COLI.) Anesthesia Reaction: No Hx Neurological Disorder: No Hx Respiratory Disorders: No Hx Cardiac Disorders: Yes (CAD;HTN;ID;) Hx Psychiatric Problems: No Hx Miscellaneous Medical Probl: Yes (see PT note) Hx Alcohol Use: No Hx Substance Use: No Hx Tobacco Use: No FmHx Family History: No diabetes Physical Exam Vitals Vital Signs Date Time Temp Pulse Resp B/P Pulse Ox O2 Delivery O2 Flow Rate FiO2 03/24/17 09:05 Nasal Cannula 2 03/24/17 08:43 98.1 69 18 179/69 99 Physical Exam General: Well developed, well nourished, no acute distress Head: Normocephalic, atraumatic. Eyes: Pupils equally reactive, EOM intact ENT: Moist mucous membranes Neck: Supple, no lymphadenopathy Respiratory: Lungs clear bilaterally, no distress Cardiovascular: RRR, no murmurs, rubs, or gallops Abdominal: Soft, non-tender, non-distended, no peritoneal signs : No melena, bright red blood per rectum with slight mucus MSK: No edema, no unilateral swelling, 5/5 strength Neurologic: Alert and oriented, moving all extremities, normal speech, no focal weakness, no cerebellar signs Skin: No rash Psych: Normal mood Result Diagram: 03/24/17 0900 03/24/17 0900 Results 24 hrs Laboratory Tests Test 03/24/17 09:00 White Blood Count 10.110^3/ul Red Blood Count 3.4310^6/ul Hemoglobin 10.6g/dl Hematocrit 33.0% Mean Corpuscular Volume 96.2fl Mean Corpuscular Hemoglobin 30.9pg Mean Corpuscular Hemoglobin Concent 32.1g/dl Red Cell Distribution Width 15.0% Platelet Count 9410^3/UL Mean Platelet Volume 11.2fl Neutrophils % 75.5% Lymphocytes % 16.3% Monocytes % 4.4% Eosinophils % 3.0% Basophils % 0.5% Nucleated Red Blood Cells % 0.0/100WBC Neutrophils # 7.610^3/ul Lymphocytes # 1.610^3/ul Monocytes # 0.410^3/ul Eosinophils # 0.310^3/ul Basophils # 0.110^3/ul Nucleated Red Blood Cells # 0.010^3/ul Prothrombin Time 14.6Sec Prothrombin Time Ratio 1.1 INR International Normalized Ratio 1.14 Activated Partial Thromboplast Time 34.5Sec Sodium Level 140mmol/L Potassium Level 4.1mmol/L Chloride Level 112mmol/L Carbon Dioxide Level 25mmol/L Anion Gap 7 Blood Urea Nitrogen 15mg/dl Creatinine 0.86mg/dl Glucose Level 96mg/dl Calcium Level 9.5mg/dl Total Bilirubin 0.4mg/dl Direct Bilirubin 0.00mg/dl Indirect Bilirubin 0.4mg/dl Aspartate Amino Transf (AST/SGOT) 29IU/L Alanine Aminotransferase (ALT/SGPT) 41IU/L Alkaline Phosphatase 200IU/L Troponin I < 0.012ng/ml Total Protein 7.5g/dl Albumin 3.4g/dl Globulin 4.10g/dl Albumin/Globulin Ratio 0.82 Current Medications Medications (Trade) Dose Ordered Sig/Rehana Route PRN Reason Start Time Stop Time Status Last Admin Dose Admin Sodium Chloride 500 ml @ 500 mls/hr Q1H STAT IV 03/24/17 08:39 03/24/17 09:38 DC 03/24/17 09:32 Metronidazole 100 ml @ 100 mls/hr ONCE STAT IVPB 03/24/17 09:49 03/24/17 10:48 DC 03/24/17 10:01 Ciprofloxacin/ Dextrose (Cipro Ivpb) 200 ml @ 200 mls/hr ONCE STAT IVPB 03/24/17 09:49 03/24/17 10:48 DC 03/24/17 10:35 Procedures/MDM EKG, MONITORS, & DIAGNOSTIC IMAGING: EKG: I reviewed and interpreted a 12-lead EKG. Rhythm: Normal sinus rhythm Ectopy: None Intervals: No abnormalities ST segments: No elevations or depressions T waves: No contiguous inversions Chest x-ray: I reviewed and interpreted a 1 view of the chest Mediastinum: No enlargement Cardiac silhouette: No cardiomegaly Airspace: Clear lung vanessa bilaterally without evidence of pneumothorax Bones: No evidence of fracture CT abdomen and pelvis: IMPRESSION: 1. Rectosigmoid colon thickening and adjacent inflammatory change consistent with rectosigmoid colitis. 2. Nodularity of the liver surface compatible with hepatic cirrhosis. The spleen is mildly enlarged consistent with portal hypertension. 3. Small abdominopelvic ascites which may be related to portal hypertension and /or reactive from rectosigmoid colitis. 4. Small bilateral pleural effusions with adjacent atelectasis. 5. Atherosclerotic vascular disease including severe coronary artery calcifications. There is bulging of the cardiac apex which may be related to prior infarct. 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 This can be further evaluated with CT angiography of the abdomen and pelvis. 6. Old granulomatous disease in the chest and spleen. 7. Emphysematous changes noted in the lungs. 8. Status post cholecystectomy. 9. Questionable bilateral nonobstructing renal calculi which may in part represent vascular calcifications. 10. Colonic diverticulosis. RPTAT: KK LAB INTERPRETATION: Hemoglobin at 10.6, platelets of 94, both consistent with baseline, no coagulopathy, negative troponin, normal BUN to creatinine ratio MEDICAL DECISION MAKING: The patient presents with bright red blood per rectum. Given her history this is most consistent with likely diverticular bleed that is moderate. The patient has hemodynamic stability. Much lower clinical concern for upper GI hemorrhage. I do not believe that the patient requires PPI at this time. The patient does have mild abdominal discomfort therefore CT imaging of the abdomen and pelvis would be appropriate. No signs of pain out of proportion therefore I do not believe this is consistent with mesenteric ischemia. The patient will benefit from laboratory testing, fluid resuscitation and serial exams with inpatient hospitalization to trend hemoglobin and allow for resolution of lower GI hemorrhage. ER COURSE: The patient has a stable hemoglobin and thrombocytopenia. Her BUN to creatinine ratio does not suggest upper GI hemorrhage. CT read was somewhat concerning for cirrhosis however looking through the patient's recent hospitalization it does not appear she was diagnosed with cirrhosis and had no esophageal varices on upper endoscopy. No indication for PPI, octreotide. The patient is hemodynamically stable. She does have colitis and was given ciprofloxacin and Flagyl. The patient is hemodynamically stable. The patient' s insurance is capitated to outside hospital [facility]. The patient will be transferred. I kept the patient and/or family informed of laboratory and diagnostic imaging results throughout the emergency room course. DISPOSITION PLAN: Medical surgical admission for management of lower GI hemorrhage CONSULTATION: Accepting care team and consultations: I discussed the current laboratory data, diagnostic imaging and emergency care provided. Admitting team: Dr. Suarez Admitting team indication: Insurance directed, capitated to [facility] Benefits outweigh the risks for transfer at this point. Stable for transfer. Departure Diagnosis: Primary Impression: Lower GI hemorrhage Additional Impressions: Thrombocytopenia Anemia Qualified Code: D64.9 - Anemia, unspecified type Colitis Condition: Stable DALLAS GUADALUPE MD March 24, 2017 08:55
[2017-03-24 09:17] LABS: ADD SCAN DIFF NO
[2017-03-24 09:22] LABS: ABNORMAL IP MESSAGE 1; BASOPHIL # 0.1 10^3/ul (0.0-0.1); BASOPHILS % 0.5 % (0.0-2.0); EOSINOPHILS # 0.3 10^3/ul (0.0-0.5); HEMOGLOBIN 10.6 g/dl (12.0-16.0); LYMPHOCYTES # 1.6 10^3/ul (0.8-2.9); LYMPHOCYTES % 16.3 % (15.0-51.0); MEAN CORPUSCULAR HEMOGLOBIN 30.9 pg (29.0-33.0); MEAN CORPUSCULAR HGB CONC 32.1 g/dl (32.0-37.0); MEAN CORPUSCULAR VOLUME 96.2 fl (82.0-101.0); MEAN PLATELET VOLUME 11.2 fl (7.4-10.4); MONOCYTE # 0.4 10^3/ul (0.3-0.9); MONOCYTES % 4.4 % (0.0-11.0); NEUTROPHIL # 7.6 10^3/ul (1.6-7.5); NEUTROPHILS % 75.5 % (39.0-77.0); RED BLOOD COUNT 3.43 10^6/ul (4.20-5.40); WHITE BLOOD COUNT 10.1 10^3/ul (4.8-10.8)
[2017-03-24 09:26] LABS: PLATELET COUNT 94 10^3/UL (140-415)
--- NOTE | 2017-03-24 09:42 | RADRPT ---
PROCEDURE: CT Abdomen and Pelvis without contrast. CLINICAL INDICATION: GI bleed. Bright red blood per stools TECHNIQUE: CT scan of the abdomen and pelvis without contrast was performed on a multi-slice CT [facility] without intravenous contrast. Coronal and sagittal reformatted images were obtained from the axial source images. Images were reviewed on a high-resolution PACS workstation. One or more of the following does reduction techniques were used: Automated exposure control; adjustment of the mA an d/or kV according to patient size; use of the aorta of reconstruction technique. The total exam CTD I equals 8.5 mGy and the total exam DLP equals 497.9 mGy-cm. COMPARISON: None available. FINDINGS: There are small bilateral pleural effusions with adjacent atelectasis. Emphysematous changes are no jaci.. Heart size is within normal limits. There is severe coronary artery calcifications. There i s mild outward bowing of the ventricular apex which may be related to thinning secondary to prior in farct. Patient is status post sternotomy and CABG. Left hilar calcified lymph nodes are noted. Th e stomach is collapsed and poorly evaluated. There is nodularity of the liver surface compatible with hepatic cirrhosis. There is a small amount of perihepatic ascites. Evaluation for liver mass is limited by lack of intravenous contrast multi ple splenic granulomata are present. The spleen appears mildly enlarged. The pancreas is atrophic . The gallbladder is surgically absent. The adrenal glands are normal. There are questionable multiple bilateral nonobstructing renal calcu li, some of which may represent vascular calcifications. There is no evidence of hydronephrosis.. The aorta is of normal caliber. Extensive atherosclerotic calcifications are present. There are mu ltiple curvilinear calcifications coursing through the central portions of the aorta compatible with prior dissection. There is no evidence of aneurysm. There is no retroperitoneal lymph node enlargm ent. There is no evidence of large or small bowel obstruction. There is moderate thickening of the recto sigmoid colon with marked inflammatory changes in the adjacent mesenteric fat compatible with rectos igmoid colitis. There are scattered colonic diverticula. The appendix is not visualized. As note d above, there is trace perihepatic free fluid and trace fluid in the right pericolic gutter. No fl uid collection is identified. There is a tiny periumbilical hernia containing only fat. The uterus is present. No enlarged pelvic sidewall lymph nodes are seen. The bladder is within norm al limits. There is trace pelvic free fluid which may be reactive to adjacent colonic inflammation. The inguinal regions are unremarkable. Patient is status post ORIF of right proximal femoral fracture. The bones are somewhat demineralize d, but otherwise intact. IMPRESSION: 1. Rectosigmoid colon thickening and adjacent inflammatory change consistent with rectosigmoid coli tis. 2. Nodularity of the liver surface compatible with hepatic cirrhosis. The spleen is mildly enlarge d consistent with portal hypertension. 3. Small abdominopelvic ascites which may be related to portal hypertension and/or reactive from re ctosigmoid colitis. 4. Small bilateral pleural effusions with adjacent atelectasis. 5. Atherosclerotic vascular disease including severe coronary artery calcifications. There is bulg ing of the cardiac apex which may be related to prior infarct. There are several curvilinear calcifi cations coursing through the mid abdominal aorta consistent with prior dissections. This can be fur ther evaluated with CT angiography of the abdomen and pelvis. 6. Old granulomatous disease in the chest and spleen. 7. Emphysematous changes noted in the lungs. 8. Status post cholecystectomy. 9. Questionable bilateral nonobstructing renal calculi which may in part represent vascular calcifi cations. 10. Colonic diverticulosis. RPTAT: KK .Jordan Hudson MD, Date Time Electronically viewed and signed by .Jordan Hudson MD, on 03/24/2017 09:42 .B/
--- NOTE | 2017-03-24 09:45 | RADRPT ---
PROCEDURE: Chest Radiograph. CLINICAL INDICATION: Abdominal pain. TECHNIQUE: Single frontal chest radiograph. COMPARISON: CT abdomen pelvis 03/24/2017 FINDINGS: Patient is status post sternotomy. Heart size is within normal limits. Atherosclerotic calcificati ons are present. There is a mild interstitial prominence likely related to chronic lung changes. T race pleural effusions seen on recent CT are not appreciated by plain film radiography . There is n o evidence of infiltrate. The bones are intact. IMPRESSION: 1. Chronic lung changes. 2. Atherosclerotic vascular disease. 3. Trace pleural effusion seen on recent CT are not appreciated by plain film radiography. RPTAT: KK .Jordan Hudson MD, MD Date Time Electronically viewed and signed by .Jordan Hudson MD, on 03/24/2017 09:45 .B/
[2017-03-24] MEDS ORDERED: CIPROFLOXACIN 400MG/D5W 200 ML IVPB STA (09:49)
[2017-03-24] MEDS ORDERED: metroNIDAZOLE 500 MG/NS (PMX) 100 ML IVPB STA (09:49)
[2017-03-24 09:52] LABS: INR 1.14; PROTIME 14.6 Sec (12.2-14.2); PT RATIO 1.1
[2017-03-24 09:53] LABS: PARTIAL THROMBOPLASTIN TIME 34.5 Sec (25.0-35.0)
[2017-03-24 09:58] LABS: ALANINE AMINOTRANSFERASE 41 IU/L (13-69); ALBUMIN 3.4 g/dl (3.3-4.9); ALBUMIN/GLOBULIN RATIO 0.82; ALKALINE PHOSPHATASE 200 IU/L (42-121); ANION GAP 7 (8-16); ASPARTATE AMINO TRANSFERASE 29 IU/L (15-46); BILIRUBIN,INDIRECT 0.4 mg/dl (0-1.1); BILIRUBIN,TOTAL 0.4 mg/dl (0.2-1.3); BLOOD UREA NITROGEN 15 mg/dl (7-20); CALCIUM 9.5 mg/dl (8.4-10.2); CARBON DIOXIDE 25 mmol/L (21-31); CHLORIDE 112 mmol/L (97-110); CREATININE 0.86 mg/dl (0.44-1.00); GLUCOSE 96 mg/dl (70-220); POTASSIUM 4.1 mmol/L (3.5-5.1); SODIUM 140 mmol/L (135-144); TOTAL PROTEIN 7.5 g/dl (6.1-8.1)
[2017-03-24] MEDS ORDERED: ADV10050 INHALATION (10:11)
[2017-03-24 10:12] LABS: TROPONIN-I < 0.012 ng/ml (0.00-0.12)
[2017-03-24] MEDS ORDERED: ATOR10TA65 PO (10:12)
[2017-03-24] MEDS ORDERED: FLUT9.9S NASAL (10:15)
[2017-03-24] MEDS ORDERED: GLUC1KIT2 IJ (10:18)
[2017-03-24] MEDS ORDERED: LANT3I SC (10:19)
[2017-03-24] MEDS ORDERED: MULTI PO (10:20)
[2017-03-24] MEDS ORDERED: LISI20TA11 PO (10:20)
[2017-03-24] MEDS ORDERED: NOVO3I SC (10:21)
[2017-03-24] MEDS ORDERED: NIFE30TA60 PO (10:23)
[2017-03-24] MEDS ORDERED: PROT946L PO (10:24)
[2017-03-24 21:34] VITALS: BP 153/56; PULSE 78; RESP 18; TEMP 97.9
== END 2017-03-24 21:49 | disposition short-term general hospital (02) ==
LOC: E/R 08:37
DX: K92.2 Gastrointestinal hemorrhage, unspecified (principal); D69.6 Thrombocytopenia, unspecified; D64.9 Anemia, unspecified; K52.9 Noninfective gastroenteritis and colitis, unspecified; I10 Essential (primary) hypertension; I25.10 Atherosclerotic heart disease of native coronary artery without angina pectoris; E11.9 Type 2 diabetes mellitus without complications; Z79.82 Long term (current) use of aspirin; Z79.4 Long term (current) use of insulin
CPT/HCPCS: 36415; 71010; 74176; 80053; 84484; 85025; 85610; 85730; 86850; 86870; 86900; 86901; 93005; 96374; 96375; 99285; J0744; J7040